=== PATIENT | female | born 1945 | race Caucasian/White ===

== ENCOUNTER 2020-01-02 16:55 | Emergency (ER) | payer OTHER ==
--- OUTSIDE RECORDS SUMMARY | 2020-01-02 16:58 | XMS REPORT | Summary of Care ---
:1945 Author Organization [facility] - Health Address [address] [place] [address] Care Team Providers Name Role Phone Sergio Berrios MD Primary Care Provider Reason for Visit Reason Comments Refill Request Encounter Details Date Type Department Care Team Description 06/25/[address] [facility] Family Medicine Sergio Berrios MD Refill Request - [address] [place] [address] [place] [address] Allergies Active Allergy Reactions Severity Noted Date Comments Levofloxacin Unknown - See comments 01/11/2016 Penicillin Unknown - See comments 01/11/2016 Sulfa (Sulfonamide Antibiotics) Unknown - See comments 01/11/2016 documented as of this encounter (statuses as of 06/25/2019) Medications Medication Sig Dispensed Refills Start Date End Date Status RESTASIS 0.05 % 3 01/04/2016 Active ophthalmic drops meloxicam (MOBIC) Take 1 Tab by 180 Tab 3 01/19/2016 Active 7.5 mg tablet mouth 2 (two) times daily. fenofibrate (TRICOR) Take 1 Tab by 90 Tab 3 01/19/2016 Active 145 mg tablet mouth daily. estradiol (ESTRACE) Take 1 Tab by 90 Tab 3 01/19/2016 Active 0.5 mg tablet mouth daily. aspirin 325 mg Take 325 mg by 0 Active tablet mouth daily. ASCORBATE CALCIUM Take by 0 Active (VITAMIN C ORAL) mouth. VITAMIN B COMPLEX Take by 0 Active ORAL mouth. CALCIUM Take by 0 Active CARBONATE/VITAMIN D2 mouth. (CALCIUM + VITAMIN D ORAL) MULTIVITAMIN ORAL Take by 0 Active mouth. azaTHIOprine 50 mg Take 50 mg by 0 Active tablet mouth daily. losartan 50 mg TAKE 1 TABLET 2 09/16/2017 Active tablet (50 MG) BY ORAL ROUTE ONCE DAILY AZELASTINE 137 mcg USE 1 SPRAYS 1 Bottle 0 04/09/2018 Active (0.1 %) nasal IN EACH sprayIndications: NOSTRIL TWICE Acute allergic A DAY rhinitis, DIRECTED unspecified seasonality, unspecified trigger biotin 5,000 mcg Take by 0 Active TbDL mouth. Cholecalciferol, Take by 0 Active Vitamin D3, (VITAMIN mouth. D3) 1,000 unit capsule clarithromycin Take 1 tablet 14 tablet 0 02/12/2019 Active (BIAXIN) 500 mg by mouth every tabletIndications: 12 (twelve) Acute non-recurrent hours. maxillary sinusitis benzonatate 100 mg Take 1 capsule 30 capsule 0 02/12/2019 Active capsuleIndications: by mouth 4 Acute non-recurrent (four) times maxillary sinusitis daily as needed for Cough. acetaminophen-codein Take 1 tablet 20 tablet 0 06/11/2019 Active e 300-30 mg by mouth every tabletIndications: 4 (four) hours Fall, initial as needed for encounter, Strain of Pain (scale left shoulder, 7-10). initial encounter, Upper arm joint pain, left escitalopram oxalate Take 1 tablet 30 tablet 0 06/15/2019 Active 10 mg by mouth tabletIndications: daily. Depression, unspecified depression type omeprazole 40 mg Take 1 capsule 90 capsule 1 06/25/2019 Active capsuleIndications: by mouth Chronic GERD daily. omeprazole 40 mg Take 1 capsule 90 capsule 1 10/08/2018 Discontinued capsuleIndications: by mouth 9 Chronic GERD daily. documented as of this encounter (statuses as of 06/25/2019) Active Problems Problem Noted Date Leukopenia, unspecified type 10/14/2017 Lupus 01/19/2016 Arthritis 01/19/2016 Essential hypertension 01/19/2016 Hyperlipidemia with target low density lipoprotein (LDL) cholesterol less 08/2016 than 100 mg/dL documented as of this encounter (statuses as of 06/25/2019) Immunizations Name Administration Dates Next Due Influenza Virus Vaccine 08/27/2018 Pneumococcal 13 Conjugate, PCV13 (Prevnar 13) 09/23/2013 Pneumococcal Polysaccharide, PPSV23 (PNEUMOVAX) 09/28/2015 Tdap 09/28/2014 documented as of this encounter Social History Tobacco Use Types Packs/Day Years Used Date Former Smoker Quit: 11/20/1999 Smokeless Tobacco: Never Used Alcohol Use Drinks/Week oz/Week Comments No Sex Assigned at Date Recorded Not on file Job Start Date Occupation Industry Not on file Not on file Not on file Travel History Travel Start Travel End No recent travel history available. documented as of this encounter Last Filed Vital Signs Not on filedocumented in this encounter Plan of Treatment Health Maintenance Due Date Last Done Comments Zoster Recombinant Vaccine (SHINGRIX) 1996 (1 of 2) Medicare Wellness Visit 2011 Osteoporosis Screening 2011 MAMMOGRAM 09/18/2018 09/18/2017 (Previously completed) INFLUENZA VACCINE (#1) 2019 08/27/2018 DTaP,Tdap,and Td Vaccines (2 - Td) 09/28/2024 09/28/2014 COLONOSCOPY 08/22/2026 08/22/2016 (Previously completed) PNEUMOCOCCAL VACCINES 65+ Completed 09/28/2015, 09/23/2013 HEPATITIS C (HCV) SCREEN Completed 2018 (Previously completed) documented as of this encounter Results Not on filedocumented in this encounter Visit Diagnoses Diagnosis Chronic GERD documented in this encounter Insurance Payer Benefit Plan Subscriber ID Effective Phone Address Type / Group Dates AETNA - AETNA [id number] 2015-[place] [address] Medicare Adv MANAGED MEDICARE ADV nt [id number] [place] [address] documented as of this encounter
--- OUTSIDE RECORDS SUMMARY | 2020-01-02 16:58 | XMS REPORT | Summary of Care ---
:1945 Author Organization [facility] Address [address] [place] [address] Care Team Providers Name Role Phone Sergio Berrios MD Primary Care Provider Reason for Referral Radiology Services (STAT) Status Reason Specialty Diagnoses / Referred By Referred To Procedures Contact Contact New Request Diagnostic Diagnoses Fall, initial encounter [place], Radiology Procedures XR SHOULDER 2+ VW LEFT Folusho F, USER ACCEPTANCE TESTER [address] [facility] [address] [place] [phone] Radiology Services (STAT) Status Reason Specialty Diagnoses / Referred By Referred To Procedures Contact Contact New Request Diagnostic Diagnoses Fall, initial encounter [place], Radiology Procedures XR HUMERUS 2 VW LEFT [place] F, USER ACCEPTANCE TESTER [address] [facility] [address] [place] [phone] Radiology Services (STAT) Status Reason Specialty Diagnoses / Referred By Referred To Procedures Contact Contact New Request Diagnostic Diagnoses Fall, initial encounter [place], Radiology Procedures XR SHOULDER 2+ VW LEFT Folusho F, USER ACCEPTANCE TESTER [address] [place] [phone] Radiology Services (STAT) Status Reason Specialty Diagnoses / Referred By Referred To Procedures Contact Contact New Request Diagnostic Diagnoses Fall, initial encounter [place], Radiology Procedures XR HUMERUS 2 VW LEFT Folusho F, USER ACCEPTANCE TESTER [address] [place] [address] Reason for Visit Reason Comments Arm Pain Left Auth/Cert Status Reason Specialty Diagnoses / Referred By Referred To Procedures Contact Contact Emergency Medicine Diagnoses ARM PAIN [facility] Emergency Dept [address] [place] [address] [place] [address] Encounter Details Date Type Department Care Team Description 06/11/2019 Emergency [facility]-Emergency [place] ac Fall, initial encounter (Primary Dx); Department F, USER ACCEPTANCE TESTER Strain of left shoulder, initial encounter; [address] [place] [address] [address] Upper arm joint pain, [place] [address] [address] [place] [address] Allergies Active Allergy Reactions Severity Noted Date Comments Levofloxacin Unknown - See comments 01/11/2016 Penicillin Unknown - See comments 01/11/2016 Sulfa (Sulfonamide Antibiotics) Unknown - See comments 01/11/2016 documented as of this encounter (statuses as of 06/11/2019) Medications Medication Sig Dispensed Refills Start Date End Date Status RESTASIS 0.05 % 3 01/04/2016 Active ophthalmic drops meloxicam (MOBIC) 7.5 Take 1 Tab by 180 Tab 3 01/19/2016 Active mg tablet mouth 2 (two) times daily. fenofibrate (TRICOR) Take 1 Tab by 90 Tab 3 01/19/2016 Active 145 mg tablet mouth daily. estradiol (ESTRACE) Take 1 Tab by 90 Tab 3 01/19/2016 Active 0.5 mg tablet mouth daily. aspirin 325 mg tablet Take 325 mg by 0 Active mouth daily. ASCORBATE CALCIUM Take by mouth. 0 Active (VITAMIN C ORAL) VITAMIN B COMPLEX ORAL Take by mouth. 0 Active CALCIUM Take by mouth. 0 Active CARBONATE/VITAMIN D2 (CALCIUM + VITAMIN D ORAL) MULTIVITAMIN ORAL Take by mouth. 0 Active azaTHIOprine 50 mg Take 50 mg by 0 Active tablet mouth daily. losartan 50 mg tablet TAKE 1 TABLET 2 09/16/2017 Active (50 MG) BY ORAL ROUTE ONCE DAILY AZELASTINE 137 mcg USE 1 SPRAYS IN 1 Bottle 0 04/09/2018 Active (0.1 %) nasal EACH NOSTRIL sprayIndications: TWICE A DAY Acute allergic DIRECTED rhinitis, unspecified seasonality, unspecified trigger biotin 5,000 mcg TbDL Take by mouth. 0 Active Cholecalciferol, Take by mouth. 0 Active Vitamin D3, (VITAMIN D3) 1,000 unit capsule omeprazole 40 mg Take 1 capsule 90 capsule 1 10/08/2018 Active capsuleIndications: by mouth daily. Chronic GERD clarithromycin Take 1 tablet 14 tablet 0 02/12/2019 Active (BIAXIN) 500 mg by mouth every tabletIndications: 12 (twelve) Acute non-recurrent hours. maxillary sinusitis benzonatate 100 mg Take 1 capsule 30 capsule 0 02/12/2019 Active capsuleIndications: by mouth 4 Acute non-recurrent (four) times maxillary sinusitis daily as needed for Cough. ESCITALOPRAM OXALATE TAKE 1 TABLET 30 tablet 0 05/08/2019 Active 10 mg BY MOUTH EVERY tabletIndications: DAY Depression, unspecified depression type naproxen 500 mg Take 1 tablet 14 tablet 0 06/11/2019 06/18/2019 Active tabletIndications: by mouth 2 Fall, initial (two) times encounter, Strain of daily with left shoulder, initial meals for 7 encounter, Upper arm days. joint pain, left acetaminophen-codeine Take 1 tablet 20 tablet 0 06/11/2019 Active 300-30 mg by mouth every tabletIndications: 4 (four) hours Fall, initial as needed for encounter, Strain of Pain (scale left shoulder, initial 7-10). encounter, Upper arm joint pain, left documented as of this encounter (statuses as of 06/11/2019) Active Problems Problem Noted Date Leukopenia, unspecified type 10/14/2017 Lupus 01/19/2016 Arthritis 01/19/2016 Essential hypertension 01/19/2016 Hyperlipidemia with target low density lipoprotein (LDL) cholesterol less 08/2016 than 100 mg/dL documented as of this encounter (statuses as of 06/11/2019) Immunizations Name Administration Dates Next Due Influenza [...] of this encounter Last Filed Vital Signs Vital Sign Reading Time Taken Comments Blood Pressure 152/80 06/11/2019 6:47 PM CDT Pulse 76 06/11/2019 6:47 PM CDT Temperature 36.9 C (98.5 F) 06/11/2019 6:47 PM CDT Respiratory Rate 18 06/11/2019 6:47 PM CDT Oxygen Saturation 96% 06/11/2019 6:47 PM CDT Inhaled Oxygen Concentration - - Weight 69.4 kg (153 lb) 06/11/2019 6:47 PM CDT Height 152.4 cm (5') 06/11/2019 6:47 PM CDT Body Mass Index 29.88 06/11/2019 6:47 PM CDT documented in this encounter Discharge Instructions AttachmentsThe following attachments cannot be sent through Care Everywhere.LUIS (Bulgarian)documented in this encounter Plan of Treatment Health Maintenance Due Date Last Done Comments Zoster Recombinant Vaccine (SHINGRIX) 1996 (1 of 2) Medicare Wellness Visit 2011 MAMMOGRAM 09/18/2018 09/18/2017 (Previously completed) INFLUENZA VACCINE 07/12/2019 08/27/2018 DTaP,Tdap,and Td Vaccines (2 - Td) 09/28/2024 09/28/2014 COLONOSCOPY 08/22/2026 08/22/2016 (Previously completed) PNEUMOCOCCAL VACCINES 65+ Completed 09/28/2015, 09/23/2013 HEPATITIS C (HCV) SCREEN Completed 2018 (Previously completed) documented as of this encounter Procedures Procedure Name Priority Date/Time Associated Diagnosis Comments XR HUMERUS 2 VW STAT 06/11/2019 7:22 PM Fall, initial Results for this LEFT CDT encounter procedure are in the results section. XR SHOULDER 2+ VW STAT 06/11/2019 7:21 PM Fall, initial Results for this LEFT CDT encounter procedure are in the results section. NOTICE OF PRIVACY Routine 06/11/2019 6:39 PM PRACTICES CDT CONSENT/REFUSAL FOR Routine 06/11/2019 6:39 PM DIAGNOSIS AND CDT TREATMENT documented in this encounter Results XR HUMERUS 2 VW LEFT (06/11/2019 7:22 PM CDT) Specimen Impressions Performed At PACS/VR/DOSE No acute osseous abnormality. Jorge Mitchell MD., have reviewed this study and agree with the above report. Narrative Performed At EXAM: PACS/VR/DOSE XR HUMERUS 2 VW LEFT, EXAM: XR SHOULDER 2+ VW LEFT HISTORY: fall COMPARISON: None available. FINDINGS: Radiographs of the left shoulder and humerus demonstrate no acute fracture or dislocation. The aorta is tortuous and contains atherosclerotic plaque. Chronic cystic erosive changes are seen over the greater tuberosity/lateral humeral head. Remote fracture deformities are seen through the left lateral ribs. Curvilinear crystalline deposition is seen within the rotator cuff. Procedure Note [facility], Radiant Results Inft User - 06/11/2019 7:42 PM CDT EXAM: XR HUMERUS 2 VW LEFT, EXAM: XR SHOULDER 2+ VW LEFT HISTORY: fall COMPARISON: None available. FINDINGS: Radiographs of the left shoulder and humerus demonstrate no acute fracture or dislocation. The aorta is tortuous and contains atherosclerotic plaque. Chronic cystic erosive changes are seen over the greater tuberosity/lateral humeral head. Remote fracture deformities are seen through the left lateral ribs. Curvilinear crystalline deposition is seen within the rotator cuff. IMPRESSION No acute osseous abnormality. Jorge Mitchell MD., have reviewed this study and agree with the above report. Performing Organization Address City/State/Zipcode Phone Number PACS/VR/DOSE XR SHOULDER 2+ VW LEFT (06/11/2019 7:21 PM CDT) Specimen Impressions Performed At PACS/VR/DOSE No acute osseous abnormality. Jorge Mitchell MD., have reviewed this study and agree with the above report. Narrative Performed At EXAM: PACS/VR/DOSE XR HUMERUS 2 VW LEFT, EXAM: XR SHOULDER 2+ VW LEFT HISTORY: fall COMPARISON: None available. FINDINGS: Radiographs of the left shoulder and humerus demonstrate no acute fracture or dislocation. The aorta is tortuous and contains atherosclerotic plaque. Chronic cystic erosive changes are seen over the greater tuberosity/lateral humeral head. Remote fracture deformities are seen through the left lateral ribs. Curvilinear crystalline deposition is seen within the rotator cuff. Procedure Note [facility], Radiant Results Inft User - 06/11/2019 7:42 PM CDT EXAM: XR HUMERUS 2 VW LEFT, EXAM: XR SHOULDER 2+ VW LEFT HISTORY: fall COMPARISON: None available. FINDINGS: Radiographs of the left shoulder and humerus demonstrate no acute fracture or dislocation. The aorta is tortuous and contains atherosclerotic plaque. Chronic cystic erosive changes are seen over the greater tuberosity/lateral humeral head. Remote fracture deformities are seen through the left lateral ribs. Curvilinear crystalline deposition is seen within the rotator cuff. IMPRESSION No acute osseous abnormality. IJorge MD., have reviewed this study and agree with the above report. Performing Organization Address City/State/Zipcode Phone Number PACS/VR/DOSE documented in this encounter Visit Diagnoses Diagnosis Fall, initial encounter - Primary Strain of left shoulder, initial encounter Upper arm joint pain, left documented in this encounter Administered Medications Medication Order MAR Action Action Date Dose Rate Site ibuprofen (IBU) tablet 800 mg 800 mg, Oral, ONCE, 1 dose, Lisa 06/11/19 at 2115, WILLIAM Medication Order MAR Action Action Date Dose Rate Site HYDROcodone-acetaminophen Given 06/11/2019 7:36 PM CDT 1 tablet (NORCO 5) 5-325 mg tablet 1 tablet 1 tablet, Oral, ONCE, 1 dose, Lisa 06/11/19 at 2015, WILLIAM documented in this encounter Insurance Payer Benefit Plan Subscriber ID Effective Phone Address Type / Group Dates AETNA - AETNA [id number] 2015-[address] [address] Medicare Adv MANAGED MEDICARE ADV nt [id number] [place] [address] documented as of this encounter
--- OUTSIDE RECORDS SUMMARY | 2020-01-02 16:58 | XMS REPORT ---
:1945 Author Organization [facility] Address [address] [place] [address] Care Team Providers Name Role Phone Unavailable Unavailable Unavailable Payers Payer Name Policy Type Policy Number Effective Date Expiration Date Problems This patient has no known problems. Allergies, Adverse Reactions, Alerts Allergy Name Allergy Status Severity Reaction(s) Onset Inactive Treating Comments Type Date Date Clinician Penicillins DA Active 2019-12 00:00:0 0 Sulfa DA Active 2019-12 (Sulfonamide -21 Antibiotics) 00:00:0 0 Medications This patient has no known medications. Results Test Description Test Time Test Comments Text Results Atomic Results Result Comments BASIC METABOLIC PANEL 2020-01-02 05:50:00 Test Item Value Reference Range Comments SODIUM (test code=NA) 133 MMOL/L 137-145 POTASSIUM (test code=K) 4.4 MMOL/L 3.5-5.1 CHLORIDE (test code=CL) 95 MMOL/L 98-107 CARBON DIOXIDE (test code=CO2) 29 MMOL/L 22-30 ANION GAP (test code=GAP) 13 MMOL/L 14-24 GLUCOSE (test code=GLU) 97 MG/DL 74-106 BLOOD UREA NITROGEN (test 30 MG/DL 7-17 code=BUN) GLOMERULAR FILTRATION RATE (test 49 Reporting units: ml/min/1.73 m2 code=GFR) (Modified MDRD Formula)Reference Range: > or=60 ml/min/1.73 m2 CREATININE (test code=CREAT) 1.10 MG/DL 0.52-1.04 CALCIUM (test code=CA) 9.3 MG/DL 8.4-10.2 LIPID PROFILE (CORONARY RISK)2020-01-02 05:50:00 Test Item Value Reference Range Comments TRIGLYCERIDES (test code=TRIG) 102 MG/DL TRIGLYCERIDES REFERENCE RANGE:Normal: <150 mg/dLBorderline High: 150-199 mg/dLHigh: 200-499 mg/dLVery High: >=500 mg/dL CHOLESTEROL (test code=CHOL) 169 MG/DL <200 HDL CHOLESTEROL (test 38 MG/DL 40-59 code=HDL) LIPOPROTEIN LDL (test 104 MG/DL 0-99 code=LDL) OPTIMAL.........<100 mg/dLNEAR OPTIMAL/ABOVE OPTIMAL.........100-129 mg/dL BORDERLINE HIGH.........130-159 mg/dL HIGH.........160-189 mg/dL VERY HIGH.........>/=190 mg/dL [id number] 05:50:00 Test Item Value Reference Range Comments MAGNESIUM (test code=MAG) 1.5 MG/DL 1.6-2.3 PROTHROMBIN [id number] 05:43:00 Test Item Value Reference Range Comments PROTHROMBIN TIME PATIENT (test 10.5 SECONDS 9.4-12.5 code=PTP) INTERNATIONAL NORMAL RATIO 1.0 The INR is to be used only (test code=INR) for monitoring oral anticoagulanttherapy. INDICATION INR VALUE 1. Prophylaxis, deep venous thrombosis, including high risk surgery. 2.0 - 3.0 2. Prophylaxis, deep venous thrombosis, hip surgery, treatment for deep venous thrombosis or pulmonary prevention of systemic embolism in patients with valvular heart disease, atrial fibrillation, tissue heart valve, or acute myocardial infarction. 2.0 - 3.0 3. Mechanical prosthesis heart valves, recurrent systemic embolism. 3.0 - 4.5 Comments to Milk [employer]ler: WILL BRING TO LABPTT [id number] 05:43:00 Test Item Value Reference Range Comments PTT ACTIVATED (test code=APTT) 26.0 SECONDS 25.1-36.5 Comments to [employer]ler: WILL BRING TO LABCBC W/AUTO [id number] 05:41:00 Test Item Value Reference Range Comments WHITE BLOOD CELL (test code=WBC) 3.2 K/MM3 3.8-9.8 RED BLOOD CELL (test code=RBC) 3.63 M/MM3 3.58-4.97 HEMOGLOBIN (test code=HGB) 10.9 G/DL 11.2-14.9 HEMATOCRIT (test code=HCT) 33.3 % 33.2-43.5 MEAN CELL VOLUME (test code=MCV) 92 fL 80.7-99.1 MEAN CELL HGB (test code=MCH) 30.0 pg 27.0-34.1 MEAN CELL HGB CONCETRATION (test code=MCHC) 32.7 % 32.2-35.7 RED CELL DISTRIBUTION WIDTH (test code=RDW) 14.8 % 12.1-15.2 PLATELET COUNT (test code=PLT) 194 K/MM3 129-368 MEAN PLATELET VOLUME (test code=MPV) 9.4 fl 7.4-10.4 NEUTROPHIL % (test code=NT%) 66.2 % 43-75 IMMATURE GRANULOCYTE % (test code=IG%) 2.5 % 0.0-2.0 LYMPHOCYTE % (test code=LY%) 24.2 % 14-44 MONOCYTE % (test code=MO%) 6.2 % 4-13 EOSINOPHIL % (test code=EO%) 0.6 % 0-6 BASOPHIL % (test code=BA%) 0.3 % 0-2 NUCLEATED RBC % (test code=NRBC%) 0.0 % 0-1.0 NEUTROPHIL # (test code=NT#) 2.13 K/mm3 2.0-7.6 IMMATURE GRANULOCYTE # (test code=IG#) 0.08 x10 3/uL 0-0.03 LYMPHOCYTE # (test code=LY#) 0.78 K/mm3 1.0-3.8 MONOCYTE # (test code=MO#) 0.20 K/mm3 0.1-0.8 EOSINOPHIL # (test code=EO#) 0.02 K/mm3 0.0-0.2 BASOPHIL # (test code=BA#) 0.01 K/mm3 0.0-0.2 NUCLEATED RBC # (test code=NRBC#) 0.00 K/mm3 0.0-0.1 BASIC METABOLIC [id number] 05:39:00 Test Item Value Reference Range Comments SODIUM (test code=NA) 133 MMOL/L 137-145 POTASSIUM (test code=K) 4.4 MMOL/L 3.5-5.1 CHLORIDE (test code=CL) 95 MMOL/L 98-107 CARBON DIOXIDE (test code=CO2) 29 MMOL/L 22-30 ANION GAP (test code=GAP) 13 MMOL/L 14-24 GLUCOSE (test code=GLU) 97 MG/DL 74-106 BLOOD UREA NITROGEN (test 30 MG/DL 7-17 code=BUN) GLOMERULAR FILTRATION RATE 49 Reporting units: ml/min/1.73 (test code=GFR) m2 (Modified MDRD Formula)Reference Range: > or=60 ml/min/1.73 m2 CREATININE (test code=CREAT) 1.10 MG/DL 0.52-1.04 CALCIUM (test code=CA) 9.3 MG/DL 8.4-10.2 LIPID PROFILE (CORONARY RISK)2020-01-02 05:39:00 Test Item Value Reference Range Comments TRIGLYCERIDES (test code=TRIG) 102 MG/DL TRIGLYCERIDES REFERENCE RANGE:Normal: <150 mg/dLBorderline High: 150-199 mg/dLHigh: 200-499 mg/dLVery High: >=500 mg/dL CHOLESTEROL (test code=CHOL) 169 MG/DL <200 HDL CHOLESTEROL (test 38 MG/DL 40-59 code=HDL) LIPOPROTEIN LDL (test MG/DL 0-99 code=LDL) [id number] 05:39:00 Test Item Value Reference Range Comments MAGNESIUM (test code=MAG) 1.5 MG/DL 1.6-2.3 BASIC METABOLIC [id number] 05:38:00 Test Item Value Reference Range Comments SODIUM (test code=NA) 133 MMOL/L 137-145 POTASSIUM (test code=K) 4.4 MMOL/L 3.5-5.1 CHLORIDE (test code=CL) 95 MMOL/L 98-107 CARBON DIOXIDE (test code=CO2) 29 MMOL/L 22-30 ANION GAP (test code=GAP) 13 MMOL/L 14-24 GLUCOSE (test code=GLU) MG/DL 74-106 BLOOD UREA NITROGEN (test 30 MG/DL 7-17 code=BUN) GLOMERULAR FILTRATION RATE 49 Reporting units: ml/min/1.73 (test code=GFR) m2 (Modified MDRD Formula)Reference Range: > or=60 ml/min/1.73 m2 CREATININE (test code=CREAT) 1.10 MG/DL 0.52-1.04 CALCIUM (test code=CA) MG/DL 8.7-9.7 LIPID PROFILE (CORONARY RISK)2020-01-02 05:38:00 Test Item Value Reference Range Comments TRIGLYCERIDES (test code=TRIG) MG/DL CHOLESTEROL (test code=CHOL) 169 MG/DL <200 HDL CHOLESTEROL (test code=HDL) MG/DL 40-59 LIPOPROTEIN LDL (test code=LDL) MG/DL 0-99 [id number] 05:38:00 Test Item Value Reference Range Comments MAGNESIUM (test code=MAG) MG/DL 1.6-2.3 BASIC METABOLIC [id number] 05:38:00 Test Item Value Reference Range Comments SODIUM (test code=NA) 133 MMOL/L 137-145 POTASSIUM (test code=K) 4.4 MMOL/L 3.5-5.1 CHLORIDE (test code=CL) 95 MMOL/L 98-107 CARBON DIOXIDE (test code=CO2) 29 MMOL/L 22-30 ANION GAP (test code=GAP) 13 MMOL/L 14-24 GLUCOSE (test code=GLU) 97 MG/DL 74-106 BLOOD UREA NITROGEN (test 30 MG/DL 7-17 code=BUN) GLOMERULAR FILTRATION RATE 49 Reporting units: ml/min/1.73 (test code=GFR) m2 (Modified MDRD Formula)Reference Range: > or=60 ml/min/1.73 m2 CREATININE (test code=CREAT) 1.10 MG/DL 0.52-1.04 CALCIUM (test code=CA) 9.3 MG/DL 8.4-10.2 LIPID PROFILE (CORONARY RISK)2020-01-02 05:38:00 Test Item Value Reference Range Comments TRIGLYCERIDES (test code=TRIG) 102 MG/DL TRIGLYCERIDES REFERENCE RANGE:Normal: <150 mg/dLBorderline High: 150-199 mg/dLHigh: 200-499 mg/dLVery High: >=500 mg/dL CHOLESTEROL (test code=CHOL) 169 MG/DL <200 HDL CHOLESTEROL (test MG/DL 40-59 code=HDL) LIPOPROTEIN LDL (test MG/DL 0-99 code=LDL) [id number] 05:38:00 Test Item Value Reference Range Comments MAGNESIUM (test code=MAG) 1.5 MG/DL 1.6-2.3 BASIC METABOLIC [id number] 05:37:00 Test Item Value Reference Range Comments SODIUM (test code=NA) 133 MMOL/L 137-145 POTASSIUM (test code=K) 4.4 MMOL/L 3.5-5.1 CHLORIDE (test code=CL) 95 MMOL/L 98-107 CARBON DIOXIDE (test code=CO2) MMOL/L 22-30 GLUCOSE (test code=GLU) MG/DL 74-106 BLOOD UREA NITROGEN (test MG/DL 7-17 code=BUN) GLOMERULAR FILTRATION RATE 49 Reporting units: ml/min/1.73 (test code=GFR) m2 (Modified MDRD Formula)Reference Range: > or=60 ml/min/1.73 m2 CREATININE (test code=CREAT) 1.10 MG/DL 0.52-1.04 CALCIUM (test code=CA) MG/DL 8.7-9.7 LIPID PROFILE (CORONARY RISK)2020-01-02 05:37:00 Test Item Value Reference Range Comments TRIGLYCERIDES (test code=TRIG) MG/DL CHOLESTEROL (test code=CHOL) 169 MG/DL <200 HDL CHOLESTEROL (test code=HDL) MG/DL 40-59 LIPOPROTEIN LDL (test code=LDL) MG/DL 0-99 [id number] 05:37:00 Test Item Value Reference Range Comments MAGNESIUM (test code=MAG) MG/DL 1.6-2.3 BASIC METABOLIC [id number] 05:35:00 Test Item Value Reference Range Comments SODIUM (test code=NA) 133 MMOL/L 137-145 POTASSIUM (test code=K) 4.4 MMOL/L 3.5-5.1 CHLORIDE (test code=CL) 95 MMOL/L 98-107 CARBON DIOXIDE (test code=CO2) MMOL/L 22-30 GLUCOSE (test code=GLU) MG/DL 74-106 BLOOD UREA NITROGEN (test code=BUN) MG/DL 7-17 GLOMERULAR FILTRATION RATE (test code=GFR) CREATININE (test code=CREAT) MG/DL 0.52-1.04 CALCIUM (test code=CA) MG/DL 8.7-9.7 LIPID PROFILE (CORONARY RISK)2020-01-02 05:35:00 Test Item Value Reference Range Comments TRIGLYCERIDES (test code=TRIG) MG/DL CHOLESTEROL (test code=CHOL) MG/DL <200 HDL CHOLESTEROL (test code=HDL) MG/DL 40-59 LIPOPROTEIN LDL (test code=LDL) MG/DL 0-99 [id number] 05:35:00 Test Item Value Reference Range Comments MAGNESIUM (test code=MAG) MG/DL 1.6-2.3
--- OUTSIDE RECORDS SUMMARY | 2020-01-02 16:58 | XMS REPORT | Summary of Care ---
:[address] [facility] - [facility] Address [address] [place] [address] Care Team Providers Name Role Phone Sergio Berrios MD Primary Care Provider Reason for Visit Reason Comments Refill Request Encounter Details Date Type Department Care Team Description 06/15/[address] [facility] Sergio Berrios MD Refill Request - [address] [place] [address] [place] [address] Allergies Active Allergy Reactions Severity Noted Date Comments Levofloxacin Unknown - See comments 01/11/2016 Penicillin Unknown - See comments 01/11/2016 Sulfa (Sulfonamide Antibiotics) Unknown - See comments 01/11/2016 documented as of this encounter (statuses as of 06/15/2019) Medications Medication Sig Dispensed Refills Start Date [...] D3, (VITAMIN mouth. D3) 1,000 unit capsule omeprazole 40 mg Take 1 capsule 90 capsule 1 10/08/2018 Active capsuleIndications: by mouth Chronic GERD daily. clarithromycin Take 1 tablet 14 tablet 0 02/12/2019 Active (BIAXIN) 500 mg by mouth every tabletIndications: 12 (twelve) Acute non-recurrent hours. maxillary sinusitis benzonatate 100 mg Take 1 capsule 30 capsule 0 02/12/2019 Active capsuleIndications: by mouth 4 Acute non-recurrent (four) times maxillary sinusitis daily as needed for Cough. naproxen 500 mg Take 1 tablet 14 tablet 0 06/11/2019 Active tabletIndications: by mouth 2 9 Fall, initial (two) times encounter, Strain of daily with left shoulder, meals for 7 initial encounter, days. Upper arm joint pain, left acetaminophen-codein Take 1 tablet 20 tablet 0 06/11/2019 Active e 300-30 mg by mouth every tabletIndications: 4 (four) hours Fall, initial as needed for encounter, Strain of Pain (scale left shoulder, 7-10). initial encounter, Upper arm joint pain, left escitalopram oxalate Take 1 tablet 30 tablet 0 06/15/2019 Active 10 mg by mouth tabletIndications: daily. Depression, unspecified depression type ESCITALOPRAM OXALATE TAKE 1 TABLET 30 tablet 0 05/08/2019 Discontinued 10 mg BY MOUTH EVERY 9 tabletIndications: DAY Depression, unspecified depression type documented as of this encounter (statuses as of 06/15/2019) Active Problems Problem Noted Date Leukopenia, unspecified type 10/14/2017 Lupus 01/19/2016 Arthritis 01/19/2016 Essential hypertension 01/19/2016 Hyperlipidemia with target low density lipoprotein (LDL) cholesterol less 08/2016 than 100 mg/dL documented as of this encounter (statuses as of 06/15/2019) Immunizations Name Administration Dates Next Due Influenza [...] filedocumented in this encounter Visit Diagnoses Diagnosis Depression, unspecified depression type documented in this encounter Insurance Payer Benefit Plan Subscriber ID Effective Phone Address Type / Group Dates AETNA - AETNA [id number] 2015-[place] [address] Medicare Adv MANAGED MEDICARE ADV nt [id number] [place] [address] documented as of this encounter
--- OUTSIDE RECORDS SUMMARY | 2020-01-02 16:59 | XMS REPORT | Summary of Care ---
:1945 Author Organization [facility] - Health Address [address] [place] [address] Care Team Providers Name Role Phone Sergio Berrios MD Primary Care Provider Reason for Visit Reason Comments Refill Request Encounter Details Date Type Department Care Team Description 07/09/2019 Refill [facility] Sergio Berrios MD Refill Request - [address] [place] [address] [place] [address] Allergies Active Allergy Reactions Severity Noted Date Comments Levofloxacin Unknown - See comments 01/11/2016 Penicillin Unknown - See comments 01/11/2016 Sulfa (Sulfonamide Antibiotics) Unknown - See comments 01/11/2016 documented as of this encounter (statuses as of 07/09/2019) Medications Medication Sig Dispensed Refills Start Date [...] initial encounter, Upper arm joint pain, left omeprazole 40 mg Take 1 capsule 90 capsule 1 06/25/2019 Active capsuleIndications: by mouth Chronic GERD daily. escitalopram oxalate Take 1 tablet 30 tablet 0 07/09/2019 Active 10 mg by mouth tabletIndications: daily. Depression, unspecified depression type escitalopram oxalate Take 1 tablet 30 tablet 0 06/15/2019 Discontinued 10 mg by mouth 9 tabletIndications: daily. Depression, unspecified depression type documented as of this encounter (statuses as of 07/09/2019) Active Problems Problem Noted Date Leukopenia, unspecified type 10/14/2017 Lupus 01/19/2016 Arthritis 01/19/2016 Essential hypertension 01/19/2016 Hyperlipidemia with target low density lipoprotein (LDL) cholesterol less 08/2016 than 100 mg/dL documented as of this encounter (statuses as of 07/09/2019) Immunizations Name Administration Dates Next Due Influenza [...] Type / Group Dates AETNA - AETNA [id number] 2015-[place]evae[place] [address] Medicare Adv MANAGED MEDICARE ADV nt [id number] [place] [address] documented as of this encounter
--- OUTSIDE RECORDS SUMMARY | 2020-01-02 16:59 | XMS REPORT | Summary of Care ---
:1945 Author Organization [facility] - Health Address [address] [place] [address] Care Team Providers Name Role Phone Sergio Berrios MD Primary Care Provider Encounter Details Date Type Department Care Team Description 12/21/2019 Orders Only [facility] Doctor Unassigned, No [address] [facility] [place] [address] [address] [place] [address] Allergies Active Allergy Reactions Severity Noted Date Comments Levofloxacin Unknown - See comments 01/11/2016 Penicillin Unknown - See comments 01/11/2016 Sulfa (Sulfonamide Antibiotics) Unknown - See comments 01/11/2016 Sulfur Dioxide Hives High 11/19/2019 documented as of this encounter (statuses as of 12/23/2019) Medications Medication Sig Dispensed Refills Start Date End Date Status RESTASIS 0.05 % 3 01/04/2016 Active ophthalmic drops fenofibrate (TRICOR) Take 1 Tab by 90 [...] MULTIVITAMIN ORAL Take by mouth. 0 Active losartan 50 mg tablet TAKE 1 TABLET (50 2 09/16/2017 Active MG) BY ORAL ROUTE ONCE DAILY Cholecalciferol, Take by mouth. 0 Active Vitamin D3, (VITAMIN D3) 1,000 unit capsule escitalopram oxalate Take 1 tablet by 90 tablet 1 11/09/2019 Active 10 mg mouth daily. tabletIndications: Depression, unspecified depression type omeprazole 40 mg Take 1 capsule by 90 capsule 1 11/09/2019 Active capsuleIndications: mouth daily. Chronic GERD benzonatate 200 mg Take 1 capsule by 25 capsule 0 11/09/2019 Active capsuleIndications: mouth 3 (three) Acute URI times daily as needed for Cough. predniSONE 10 mg Take 1 tablet by 14 tablet 0 11/19/2019 Active tabletIndications: mouth 2 (two) Lupus, Arthritis times daily. HYDROcodone-acetaminop Take 1 tablet by 30 tablet 0 11/19/2019 Active hen 7.5-325 mg per mouth every 6 tabletIndications: (six) hours as Arthritis needed for Pain. Nitrofurantoin&Nit. Take 1 capsule by 10 capsule 0 11/29/2019 Active Macrocryst (MACROBID) mouth 2 (two) 100 mg times daily. capsuleIndications: Chest pain, unspecified type, Dyspnea, unspecified type, Urinary tract infection without hematuria, site unspecified documented as of this encounter (statuses as of 12/23/2019) Active Problems Problem Noted Date Leukopenia, unspecified type 10/14/2017 Lupus 01/19/2016 Arthritis 01/19/2016 Essential hypertension 01/19/2016 Hyperlipidemia with target low density lipoprotein (LDL) cholesterol less 08/2016 than 100 mg/dL documented as of this encounter (statuses as of 12/23/2019) Immunizations Name Administration Dates Next Due Influenza High Dose 08/11/2019 Influenza Virus Vaccine 08/27/2018 Pneumococcal 13 Conjugate, [...] Medicare Wellness Visit 2011 Osteoporosis Screening 2011 Breast Cancer Screening (MAMMOGRAM) 12/12/2019 12/12/2018, 09/18/2017 (Previously completed) DTaP,Tdap,and Td Vaccines (2 - Td) 09/28/2024 09/28/2014 COLONOSCOPY 08/22/2026 08/22/2016 (Previously completed) PNEUMOCOCCAL VACCINES 65+ Completed 09/28/2015, 09/23/2013 HEPATITIS C (HCV) SCREEN Completed 2018 (Previously completed) INFLUENZA VACCINE Completed 08/11/2019, 08/27/2018 documented as of this encounter Procedures Procedure Name Priority Date/Time Associated Diagnosis Comments AUTHORIZATION TO RELEASE Routine 12/21/2019 12:01 AM PHI TO [facility] [employer] [employer] documented in this encounter Results Not on filedocumented in this encounter Insurance Payer Benefit Plan Subscriber ID Effective Phone Address Type / Group Dates AETNA - AETNA [id number] 2015-[place]evaeh [address] Medicare Adv MANAGED MEDICARE ADV nt [id number] [place] [address] documented as of this encounter
--- OUTSIDE RECORDS SUMMARY | 2020-01-02 16:59 | XMS REPORT | Summary of Care ---
:1945 Author Organization [facility] Address [address] [place] [address] Care Team Providers Name Role Phone Sergio Berrios MD Primary Care Provider Reason for Visit Reason Comments Notification Encounter Details Date Type Department Care Team Description 12/22/2019 Telephone [facility] Sergio Berrios MD Notification - [place] [address] [facility] [address] [place] [address] [place] [address] Allergies Active Allergy Reactions Severity Noted Date Comments Levofloxacin Unknown - See comments 01/11/2016 Penicillin Unknown - See comments 01/11/2016 Sulfa (Sulfonamide Antibiotics) Unknown - See comments 01/11/2016 Sulfur Dioxide Hives High 11/19/2019 documented as of this encounter (statuses as of 12/22/2019) Medications Medication Sig Dispensed Refills Start Date [...] as of this encounter (statuses as of 12/22/2019) Active Problems Problem Noted Date Leukopenia, unspecified type 10/14/2017 Lupus 01/19/2016 Arthritis 01/19/2016 Essential hypertension 01/19/2016 Hyperlipidemia with target low density lipoprotein (LDL) cholesterol less 08/2016 than 100 mg/dL documented as of this encounter (statuses as of 12/22/2019) Immunizations Name Administration Dates Next Due Influenza [...] 08/11/2019, 08/27/2018 documented as of this encounter Results Not on filedocumented in this encounter Insurance Payer Benefit Plan Subscriber ID Effective Phone Address Type / Group Dates AETNA - AETNA [id number] 2015-Nevaeh [address] Medicare Adv MANAGED MEDICARE ADV nt [id number] [place] [address] documented as of this encounter
--- OUTSIDE RECORDS SUMMARY | 2020-01-02 17:00 | XMS REPORT | Summary of Care ---
:1945 Author Organization [facility] - [facility] [place] Address [address] [place] [address] Care Team Providers Name Role Phone Sergio Ruelas MD Primary Care Provider Reason for Referral Radiology Services (STAT) Status Reason Specialty Diagnoses / Referred By Referred To Procedures Contact Contact New Request Diagnostic Diagnoses Multiple complaints Fever, unspecified fever cause Tyrell Del Angel, Radiology Procedures XR CHEST [address] [place] [address] [address] [place] [id number] Reason for Visit Reason Comments Headache Fever Shortness of Breath Auth/Cert Status Reason Specialty Diagnoses / Referred By Referred To Procedures Contact Contact Emergency Medicine Diagnoses LOW WHITE COUNT, SENT BY DR RUELAS [facility] [address] [place] [address] [place] [address] Encounter Details Date Type Department Care Team Description 12/22/2019 Emergency ADC-Emergency Tyrell Del Angel MD Multiple complaints (Primary Dx); Department [facility] Fever, unspecified fever cause; [address] [place] [address] [address] Immunosuppression; [place] [address] History of recent steroid use; [phone] Leukopenia, unspecified type Allergies Active Allergy Reactions Severity Noted Date [...] Sign Reading Time Taken Comments Blood Pressure 121/69 12/22/2019 1:00 PM CIRCULATION LIBRARIAN Pulse 69 12/22/2019 1:00 PM CIRCULATION LIBRARIAN Temperature 36.9 C (98.5 F) 12/22/2019 10:07 AM CIRCULATION LIBRARIAN Respiratory Rate 17 12/22/2019 1:00 PM CIRCULATION LIBRARIAN Oxygen Saturation 96% 12/22/2019 1:00 PM CIRCULATION LIBRARIAN Inhaled Oxygen Concentration - - Weight 68 kg (150 lb) 12/22/2019 10:07 AM CIRCULATION LIBRARIAN Height 152.4 cm (5') 12/22/2019 10:07 AM CIRCULATION LIBRARIAN Body Mass Index 29.29 12/22/2019 10:07 AM CIRCULATION LIBRARIAN documented in this encounter Discharge Instructions InstructionsTyrell Del Angel MD - 12/22/2019 RETURN FOR ANY QUESTIONS OR CONCERNS Today you were seen by Tyrell Del Angel Jr., MD You were seen today for Chief Complaint Patient presents with Headache Fever Shortness of Breath Your ER diagnosis was ICD-10-CM ICD-9-CM 1. Multiple complaints R68.89 780.99 2. Fever, unspecified fever cause R50.9 780.60 3. Immunosuppression D89.9 279.9 4. History of recent steroid use Z92.241 V87.45 5. Leukopenia, unspecified type D72.819 288.50 NO LIFE-THREATENING FINDINGS ON TODAY'S EXAM. YOUR PRESCRIPTIONS : Check out [employer] for medication discounts Medication List ASK your doctor about these medications aspirin 325 mg tablet benzonatate 200 mg capsule Commonly known as: TESSALON Take 1 capsule by mouth 3 (three) times daily as needed for Cough. CALCIUM + VITAMIN D ORAL escitalopram oxalate 10 mg tablet Commonly known as: LEXAPRO Take 1 tablet by mouth daily. estradiol 0.5 mg tablet Commonly known as: ESTRACE Take 1 Tab by mouth daily. fenofibrate 145 mg tablet Commonly known as: TRICOR Take 1 Tab by mouth daily. HYDROcodone-acetaminophen 7.5-325 mg per tablet Commonly known as: NORCO Take 1 tablet by mouth every 6 (six) hours as needed for Pain. losartan 50 mg tablet Commonly known as: COZAAR MULTIVITAMIN ORAL Nitrofurantoin&Nit. Macrocryst 100 mg capsule Commonly known as: MACROBID Take 1 capsule by mouth 2 (two) times daily. omeprazole 40 mg capsule Commonly known as: PRILOSEC Take 1 capsule by mouth daily. predniSONE 10 mg tablet Commonly known as: DELTASONE Take 1 tablet by mouth 2 (two) times daily. RESTASIS 0.05 % drops Generic drug: cycloSPORINE VITAMIN B COMPLEX ORAL VITAMIN C ORAL VITAMIN D3 25 mcg (1,000 unit) capsule Generic drug: Cholecalciferol (Vitamin D3) ER precautions and follow up : 1. Return to ER if your symptoms should worsen or fail to improve within 72 hours. 2. The care provided in the emergency room was for acute problems only. 3. You should follow up with your primary care provider within 72 hours. 4. Fill and take all your medications as prescribed. 5. Make sure you are staying adequately hydrated. Busque attencion immediatamente si usted tiene los sitomas sigue, vuelve peor o si hay sitomas nuevas o para cualquiera preoccupacion incluyendo dolor del pecho , falta aire, se siente debile, mas fievre, mas dolor, nausea, vomitando, sangrando que no es normal, confusion, baja or pierdas conciencia. MAY FOLLOW-UP WITH A PROVIDER OF YOUR CHOICE, SUCH : 1. A PHYSICIAN OF YOUR CHOICE 2. [facility], . LOCATIONS IN ED [facility] 3. [facility], [address], [place]; [phone] OR, IF YOU WISH TO FOLLOW-UP WITHIN THE [facility], MAY TRY THESE OPTIONS (CLINIC APPOINTMENTS AVAILABLE ON KWUF-IP-DEHQ BASIS): 1. SCHEDULE AN APPOINTMENT ONLINE AT WWW[facility] 2. OR CALL THE [facility] ACCESS CENTER AT OR 3. OR CALL YOUR [facility] PHYSICIAN'S OFFICE DIRECTLY IF YOU ARE ALREADY AN ESTABLISHED [facility] PATIENT. [facility] RETURN TO WORK / SCHOOL EXCUSE [employer] Lauren WAS SEEN IN THE ER AND DISCHARGED 12/22/2019 TODAY, 1:45 PM & May return to Work / School / Incarceration on X with activity as tolerated indicated below. ___The following limitations apply until pt is seen by Physician and cleared to return to normal activity. _X_ Off for two days and return to activity as tolerated at work or school ___ No Sports ___ No work ___ Do not return until fever free for 24 hours. ___ No school TYRELL DEL ANGEL Jr., MD [facility] [address] [place] [address] [place] [address] ### The patient may have been given Narcotic pain medications during their stay in the ED that may show up on a Drug Screen. The hospital discharge paper work will identify these medications. AttachmentsThe following attachments cannot be sent through Care Everywhere.Febrile Illness, Uncertain Cause (Adult) (Lebanese)Immunocompromised Patients, Discharge Instructions (Lebanese)documented in this encounter Plan of Treatment Name Type Priority Associated Diagnoses Date/Time BLOOD CULTURE SCREEN LAB STAT Multiple complaints 12/22/2019 11:30 AM CIRCULATION LIBRARIAN Fever, unspecified fever cause BLOOD CULTURE SCREEN LAB STAT Multiple complaints 12/22/2019 10:59 AM CIRCULATION LIBRARIAN Fever, unspecified fever cause Name Type Priority Associated Diagnoses Order Schedule BLOOD CULTURE SCREEN LAB Routine Multiple complaints ONCE for 1 Occurrences Fever, unspecified fever starting 12/22/2019 until cause 12/22/2019 BLOOD CULTURE SCREEN LAB Routine Multiple complaints ONCE for 1 Occurrences Fever, unspecified fever starting 12/22/2019 until cause 12/22/2019 Health Maintenance Due Date Last Done Comments [...] Procedure Name Priority Date/Time Associated Diagnosis Comments URINALYSIS STAT 12/22/2019 12:01 Multiple complaints Results for this PM CIRCULATION LIBRARIAN Fever, unspecified procedure are in fever cause the results section. ADC,CLC OR LCC ONLY - STAT 12/22/2019 11:06 Multiple complaints Results for this INFLUENZA A & B AM CIRCULATION LIBRARIAN Fever, unspecified procedure are in DIRECT ANTIGEN fever cause the results section. LACTIC ACID WHOLE STAT 12/22/2019 11:00 Multiple complaints Results for this BLOOD AM CIRCULATION LIBRARIAN Fever, unspecified procedure are in fever cause the results section. CBC WITH DIFFERENTIAL STAT 12/22/2019 10:59 Multiple complaints Results for this AM CIRCULATION LIBRARIAN Fever, unspecified procedure are in fever cause the results section. ACTIVATED PARTIAL STAT 12/22/2019 10:59 Multiple complaints Results for this THRMPLAS BHARGAV AM CIRCULATION LIBRARIAN Fever, unspecified procedure are in fever cause the results section. PROTHROMBIN TIME / STAT 12/22/2019 10:59 Multiple complaints Results for this INR AM CIRCULATION LIBRARIAN Fever, unspecified procedure are in fever cause the results section. CBC WITH DIFFERENTIAL Routine 12/22/2019 10:59 Multiple complaints Results for this AM CIRCULATION LIBRARIAN Fever, unspecified procedure are in fever cause the results section. BASIC METABOLIC PANEL STAT 12/22/2019 10:59 Multiple complaints Results for this (NA, K, CL, CO2, AM CIRCULATION LIBRARIAN Fever, unspecified procedure are in GLUCOSE, BUN, fever cause the results CREATININE, CA) section. HEPATIC FUNCTION STAT 12/22/2019 10:59 Multiple complaints Results for this PANEL (18995) AM CIRCULATION LIBRARIAN Fever, unspecified procedure are in (ALB,T.PRO,BILI fever cause the results T,BU/BC,ALT,AST,ALK section. PHOS) TROPONIN I STAT 12/22/2019 10:59 Multiple complaints Results for this AM CIRCULATION LIBRARIAN Fever, unspecified procedure are in fever cause the results section. XR CHEST 1 VW STAT 12/22/2019 10:55 Multiple complaints Results for this AM CIRCULATION LIBRARIAN Fever, unspecified procedure are in fever cause the results section. EKG-12 LEAD STAT 12/22/2019 10:31 AM CIRCULATION LIBRARIAN documented in this encounter Results Urinalysis (12/22/2019 12:01 PM CIRCULATION LIBRARIAN) APPEARANCE Clear Clear [facility] COLOR Yellow Yellow [facility] PH 5.0 4.8 - 8.0 [facility] SP GRAVITY 1.010 1.003 - 1.030 [facility] GLU U QUAL Normal Normal [facility] BLOOD Negative Negative [facility] KETONES Negative Negative [facility] PROTEIN Negative Negative [facility] UROBILIN Normal Normal [facility] BILIRUBIN Negative Negative [facility] NITRITE Negative Negative [facility] LEUK YUDI 25/uL (A) Negative [facility] RBC/HPF 1 0 - 3 HPF [facility] WBC/HPF 3 0 - 5 HPF [facility] BACTERIA Negative Negative [facility] MUCOUS Slight (A) Negative LPF [facility] SQ EPITH <1 HPF [facility] HYAL CAST 3 (H) <=2 LPF [facility] Specimen Urine - URINE, CLEAN CATCH Performing Organization Address [facility] Centercode Phone Number [facility] CLIA: [id number], [address] [place] [address] ADC,CLC OR LCC ONLY - INFLUENZA A & B DIRECT ANTIGEN (12/22/2019 11:06 AM CIRCULATION LIBRARIAN) Influenza A Negative Negative [facility] Influenza B Negative Negative [facility] Specimen Swab - NARE, LEFT SIDE Performing Organization Address [facility] Centercode Phone Number [facility] CLIA: [id number], [address] [place] [address] Lactic Acid Whole Blood (12/22/2019 11:00 AM CIRCULATION LIBRARIAN) LACTIC ACID 1.09 0.50 - 2.20 mmol/L [facility] Specimen Blood - VENOUS Performing Organization Address City/State/Zipcode Phone Number [facility] CLIA: [id number], [address] [place] [address] CBC WITH DIFFERENTIAL (12/22/2019 10:59 AM CIRCULATION LIBRARIAN) WBC 3.67 (L) 4.30 - 11.10 [facility] 10*3/L [facility] RBC 3.91 (L) 3.93 - 5.25 [facility] 10*6/L [facility] HGB 11.6 11.6 - 15.0 [facility] g/dL [facility] HCT 35.4 (L) 35.7 - 45.2 % [facility] MCV 90.5 80.6 - 95.5 fL [facility] MCH 29.7 25.9 - 32.8 pg [facility] MCHC 32.8 31.6 - 35.1 [facility] g/dL [facility] RDW-SD 47.3 39.0 - 49.9 fL [facility] RDW-CV 14.3 12.0 - 15.5 % [facility] PLT 203 166 - 358 [facility] 10*3/L [facility] MPV 9.7 9.5 - 12.9 fL [facility] NRBC/100 WBC 0.0 0.0 - 10.0 /100 [facility] WBCs [facility] NRBC x10^3 <0.01 10*3/L [facility] GRAN MAT (NEUT) % 84.8 % [facility] IMM GRAN % 1.90 % [facility] LYMPH % 10.6 % [facility] MONO % 2.7 % [facility] EOS % 0.0 % [facility] BASO % 0.0 % [facility] GRAN MAT x10^3(ANC) 3.11 1.88 - 7.09 [facility] 10*3/uL [facility] IMM GRAN x10^3 0.07 (H) 0.00 - 0.06 [facility] 10*3/uL HOSPITAL LAB[facility]ORY LYMPH x10^3 0.39 (L) 1.32 - 3.29 [facility] 10*3/uL HOSPITAL LAB[facility]ATORY MONO x10^3 0.10 (L) 0.33 - 0.92 [facility] 10*3/uL HOSPITAL LAB[facility]ORY EOS x10^3 <0.03 (L) 0.03 - 0.39 [facility] 10*3/uL H[facility]ITAL LAB[facility]ORY BASO x10^3 <0.03 0.01 - 0.07 [facility] 10*3/uL [facility] Specimen Blood - VENOUS Performing Organization Address City/[facility] Centercode Phone Number [facility] CLIA: [id number], [address] [place], [place] [address] [address] Prothrombin Time (PT) / INR (12/22/2019 10:59 AM CIRCULATION LIBRARIAN) [facility] PROTIME PATIENT 12.9 12.0 - 14.7 [facility] LABORATORY INR 1.0Comment: Normal [facility] INR <1.1; Warfarin [facility] Therapeutic range LABORATORY 2.0 to 3.0 or 2.5 to 3.5, depending upon the indications. Specimen Blood - VENOUS Performing Organization Address [facility] Phone Number [facility] CLIA: [id number], [address] [place], [place] [address] LAB[address] aPTT (12/22/2019 10:59 AM CIRCULATION LIBRARIAN) [facility] APTT Patient 29 23 - 38 Seconds [facility] Specimen Blood - VENOUS Narrative Performed At The [facility] patient population mean normal value [facility] for aPTT is 30 seconds. Performing Organization Address [facility] Phone Number [facility] CLIA: [id number], [address] [place], [place] [address] LAB[address] Troponin I (12/22/2019 10:59 AM CIRCULATION LIBRARIAN) [facility] TROPONIN I 0.033 <=0.034 ng/mL [facility] Specimen Blood - VENOUS Narrative Performed At Equal or Less than 0.034 ng/ml---Normal [facility] Note: Cardiac troponin begins to rise 3-4 hours after the onset of ischemia. Repeat in 4-6 hours if the sample was drawn within 3-4 hours of the onset of the symptom and found normal. Between 0.035 and 0.120 ng/mL--- Borderline. Questionable myocardial injury or necrosis Note: Serial measurement may be necessary to confirm or exclude the diagnosis of myocardial injury or necrosis; Clinical correlation (symptoms, EKGs, imaging studies, and others) required; Repeat in 4-6 hours if clinically indicated. Equal or Higher than 0.121 ng/mL---Abnormal. Myocardial Injury or Necrosis Likely Biotin has been reported to cause a negative bias, interpret results relative to patient's use of biotin. Performing Organization Address [facility] Centercode Phone Number [facility] CLIA: [id number], [address] [place] [address] LABORATORY Hospital [facility] Hepatic Function Panel (ALB, T.PRO, BILI T, BU/BC, ALT, AST, ALK PHOS) (2019 10:59 AM CIRCULATION LIBRARIAN) TOTAL BILI 0.7 0.1 - 1.1 mg/dL [facility] BILI UNCON 0.3 0.1 - 1.1 mg/dL [facility] BILI CONJ 0.0 0.0 - 0.3 mg/dL [facility] T PROTEIN 7.1 6.3 - 8.2 g/dL [facility] ALBUMIN 3.6 3.5 - 5.0 g/dL [facility] ALK PHOS 63 34 - 122 U/L [facility] ALTv 138 (H) 5 - 35 U/L [facility] AST(SGOT) 247 (H) 13 - 40 U/L [facility] Specimen Blood - VENOUS Performing Organization Address [facility] Centercooh Phone Number [facility] CLIA: [id number], [address] [place] [address] LABORATORY Hospital [facility] Basic Metabolic Panel (NA, K, CL, CO2, GLUCOSE, BUN, CREATININE, CA) (2019 10:59 AM CIRCULATION LIBRARIAN) NA 133 (L) 135 - 145 [facility] mmol/L [facility] K 4.1 3.5 - 5.0 [facility] mmol/L HOSPITAL LABORATORY CL 98 98 - 108 mmol/L [facility] CO2 TOTAL 26 23 - 31 mmol/L [facility] AGAP 9 2 - 16 [facility] BUN 28 (H) 7 - 23 mg/dL [facility] GLUCOSE 100 70 - 110 mg/dL [facility] CREATININE 0.97 0.50 - 1.04 [facility] mg/dL [facility] LABORATORY CALCIUM 9.6 8.6 - 10.6 [facility] mg/dL [facility] LABOR[facility]ORY eGFR Calculation 56.3 mL/min/1.73m2 [facility] (Non-[facility] LABORATORY Bangladeshi) eGFR Calculation 68.2 mL/min/1.73m2 [facility] () [facility] Specimen Blood - VENOUS Narrative Performed At Association of Glomerular Filtration Rate (GFR) [facility] LABORATORY and Staging of Kidney Disease* + + +- + | GFR (mL/min/1.73 m2) | With Kidney Damage | Without Kidney Damage + + +- + | >90 | Stage one | Normal + + +- + | 60-89 | Stage two | Decreased GFR + + +- + | 30-59 | Stage three | Stage three + + +- + | 15-29 | Stage four | Stage four + + +- + | <15 (or dialysis) | Stage five | Stage five + + +- + *Each stage assumes the associated GFR level has been in effect for at least three months. Stages 1 to 5, with or without kidney disease, indicate chronic kidney disease. Notes: Determination of stages one and two (with eGFR >59mL/min/1.73 m2) requires estimation of kidney damage for at least three months as defined by structural or functional abnormalities of the kidney, manifested by either: Pathological abnormalities or Markers of kidney damage (including abnormalities in the composition of the blood or urine or abnormalities in imaging tests). Performing Organization Address City/[facility]/Zipcode Phone Number [facility] CLIA: [id number], [address] [place] [address] [facility] [address] XR CHEST 1 VW (12/22/2019 10:55 AM CIRCULATION LIBRARIAN) Specimen Narrative Performed At EXAM: XR CHEST 1 VW PACS/VR/DOSE HISTORY: dyspnea COMPARISON: None. FINDINGS: The heart is slightly enlarged to the left, not different than noted previously. The left ventricle is enlarged. The lungs are satisfactorily expanded and clear. Procedure Note Ut, Radiant Results Inft User - 12/22/2019 10:58 AM CIRCULATION LIBRARIAN EXAM: XR CHEST 1 VW HISTORY: dyspnea COMPARISON: None. FINDINGS: The heart is slightly enlarged to the left, not different than noted previously. The left ventricle is enlarged. The lungs are satisfactorily expanded and clear. Performing Organization Address City/State/Zipcode Phone Number PACS/VR/DOSE documented in this encounter Visit Diagnoses Diagnosis Multiple complaints - Primary Other ill-defined conditions Fever, unspecified fever cause Immunosuppression Unspecified disorder of immune mechanism History of recent steroid use Leukopenia, unspecified type documented in this encounter Insurance Payer Benefit Plan Subscriber ID Effective Phone Address Type / Group Dates AETNA - AETNA [id number] 2015-[place] [address] Medicare Adv MANAGED MEDICARE ADV nt [id number] [place] [address] documented as of this encounter"
--- OUTSIDE RECORDS SUMMARY | 2020-01-02 17:00 | XMS REPORT | Summary of Care ---
:1945 Author Organization [facility] - [facility] Address [address] [place] [address] Care Team Providers Name Role Phone Sergio Berrios MD Primary Care Provider Reason for Visit Reason Comments Notification Encounter Details Date Type Department Care Team Description 12/02/2019 Telephone [facility] Family Medicine Sergio Berrios MD Notification - [place] [address] [facility] [address] [place] [address] [place] [address] Allergies Active Allergy Reactions Severity Noted Date Comments Levofloxacin Unknown - See comments 01/11/2016 Penicillin Unknown - See comments 01/11/2016 Sulfa (Sulfonamide Antibiotics) Unknown - See comments 01/11/2016 Sulfur Dioxide Hives High 11/19/2019 documented as of this encounter (statuses as of 12/03/2019) Medications Medication Sig Dispensed Refills Start Date [...] as of this encounter (statuses as of 12/03/2019) Active Problems Problem Noted Date Leukopenia, unspecified type 10/14/2017 Lupus 01/19/2016 Arthritis 01/19/2016 Essential hypertension 01/19/2016 Hyperlipidemia with target low density lipoprotein (LDL) cholesterol less 08/2016 than 100 mg/dL documented as of this encounter (statuses as of 12/03/2019) Immunizations Name Administration Dates Next Due Influenza [...] Type / Group Dates AETNA - AETNA [id number] 2015-[place]evae[place] [address] Medicare Adv MANAGED MEDICARE ADV nt [id number] [facility] [place] [address] documented as of this encounter
--- OUTSIDE RECORDS SUMMARY | 2020-01-02 17:00 | XMS REPORT | Summary of Care ---
:1945 Author Organization [facility] Address [address] [place] [id number] Care Team Providers Name Role Phone Sergio Berrios MD Primary Care Provider Reason for Referral MRI/CAT Scan (STAT) Status Reason Specialty Diagnoses / Referred By Referred To Procedures Contact Contact New Request Diagnostic Diagnoses Dyspnea, unspecified type Tyrell Del Angel, Radiology Procedures CT ABDOMEN PELVIS W CONTRAST [address] [place] [address] [place] [address] MRI/CAT Scan (STAT) Status Reason Specialty Diagnoses / Referred By Referred To Procedures Contact Contact New Request Diagnostic Diagnoses Dyspnea, unspecified type Tyrell Del Angel, Radiology Procedures CT CHEST PULMONARY ANGIOGRAM [address] [place] [address] [place] [address] Radiology Services (STAT) Status Reason Specialty Diagnoses / Referred By Referred To Procedures Contact Contact New Request Diagnostic Diagnoses Chest pain, unspecified type Tyrell Del Angel, Radiology Procedures Chest [address] [place] [address] [place] [address] Reason for Visit Reason Comments Chest Pain Shortness of Breath Auth/Cert Status Reason Specialty Diagnoses / Referred By Referred To Procedures Contact Contact [facility] [address] [place] [address] [place] [address] Encounter Details Date Type Department Care Team Description 11/29/2019 Emergency [facility] Tyrell Del Angel MD Chest pain, unspecified type (Primary Dx); Department [address] [place] [address] Dyspnea, unspecified type; [address] [place] [address] [address] Urinary tract infection without hematuria, [place] [address] [place] [address] [phone] Allergies Active Allergy Reactions Severity Noted Date Comments Levofloxacin Unknown - See comments 01/11/2016 Penicillin Unknown - See comments 01/11/2016 Sulfa (Sulfonamide Antibiotics) Unknown - See comments 01/11/2016 Sulfur Dioxide Hives High 11/19/2019 documented as of this encounter (statuses as of 11/29/2019) Medications Medication Sig Dispensed Refills Start Date [...] as of this encounter (statuses as of 11/29/2019) Active Problems Problem Noted Date Leukopenia, unspecified type 10/14/2017 Lupus 01/19/2016 Arthritis 01/19/2016 Essential hypertension 01/19/2016 Hyperlipidemia with target low density lipoprotein (LDL) cholesterol less 08/2016 than 100 mg/dL documented as of this encounter (statuses as of 11/29/2019) Immunizations Name Administration Dates Next Due Influenza [...] Sign Reading Time Taken Comments Blood Pressure 107/70 11/29/2019 5:00 PM FACILITIES OPERATOR Pulse 89 11/29/2019 5:00 PM FACILITIES OPERATOR Temperature 37.3 C (99.2 F) 11/29/2019 1:18 PM FACILITIES OPERATOR Respiratory Rate 27 11/29/2019 5:00 PM FACILITIES OPERATOR Oxygen Saturation 96% 11/29/2019 5:00 PM FACILITIES OPERATOR Inhaled Oxygen Concentration - - Weight 70.3 kg (155 lb) 11/29/2019 1:18 PM FACILITIES OPERATOR Height - - Body Mass Index 30.27 06/11/2019 6:47 PM CDT documented in this encounter Discharge Instructions Tyrell Roper MD - 11/29/2019 RETURN FOR ANY QUESTIONS OR CONCERNS Today you were seen by Tyrell Del Angel Jr., MD You were seen today for Chief Complaint Patient presents with Chest Pain Shortness of Breath Your ER diagnosis was ICD-10-CM ICD-9-CM 1. Chest pain, unspecified type R07.9 786.50 2. Dyspnea, unspecified type R06.00 786.09 3. Urinary tract infection without hematuria, site unspecified N39.0 599.0 NO LIFE-THREATENING FINDINGS ON TODAY'S EXAM. YOUR PRESCRIPTIONS : Check out [employer] for medication discounts Medication List ASK your doctor about these medications aspirin 325 mg tablet azaTHIOprine 50 mg tablet Commonly known as: IMURAN benzonatate 200 mg capsule Commonly known as: [...] tablet Commonly known as: COZAAR MULTIVITAMIN ORAL omeprazole 40 mg capsule Commonly known as: [...] 1. A PHYSICIAN OF YOUR CHOICE 2. [facility], . LOCATIONS IN [facility] 3. [facility], [address], [place]; OR, IF YOU WISH TO FOLLOW-UP WITHIN THE [facility], MAY TRY THESE OPTIONS (CLINIC APPOINTMENTS AVAILABLE ON CUOV-AW-SLMH BASIS): 1. SCHEDULE AN APPOINTMENT ONLINE AT [email or web address] 2. OR CALL THE [facility] ACCESS CENTER AT OR 3. OR CALL YOUR [facility] PHYSICIAN'S OFFICE DIRECTLY IF YOU ARE ALREADY AN ESTABLISHED [facility] PATIENT. [facility] RETURN TO WORK / SCHOOL EXCUSE [employer] Lauren WAS SEEN IN THE ER AND DISCHARGED 11/29/2019 TODAY, 5:45 PM & May return to Work / [...] No school TYRELL DEL ANGEL Jr., MD [facility] EMERGENCY DEPRTMENT [address] [place] [address] [place] [address] ### The patient may have been given Narcotic pain medications during their stay in the ED that may show up on a Drug Screen. The hospital discharge paper work will identify these medications. AttachmentsThe following attachments cannot be sent through Care Everywhere.Bladder Infection, Female (Adult) (Scottish)Shortness of Breath ( Dyspnea) (Scottish)documented in this encounter Plan of Treatment Name Type Priority Associated Diagnoses Date/Time BLOOD CULTURE SCREEN LAB STAT Chest pain, unspecified 11/29/2019 3:48 PM FACILITIES OPERATOR type Dyspnea, unspecified type BLOOD CULTURE SCREEN LAB STAT Chest pain, unspecified 11/29/2019 3:59 PM FACILITIES OPERATOR type Dyspnea, unspecified type Name Type Priority Associated Diagnoses Order Schedule BLOOD CULTURE SCREEN LAB Routine Chest pain, unspecified ONCE for 1 Occurrences type starting 11/29/2019 until Dyspnea, unspecified type 11/29/2019 BLOOD CULTURE SCREEN LAB Routine Chest pain, unspecified ONCE for 1 Occurrences type starting 11/29/2019 until Dyspnea, unspecified type 11/29/2019 URINE CULTURE LAB Routine Urinary tract infection ONCE for 1 Occurrences without hematuria, site starting 11/29/2019 until unspecified 11/29/2019 Health Maintenance Due Date Last Done Comments [...] Priority Date/Time Associated Diagnosis Comments URINALYSIS STAT 11/29/2019 4:00 Chest pain, Results for this PM FACILITIES OPERATOR unspecified type procedure are in Dyspnea, unspecified the results type section. ADC,CLC OR LCC ONLY - STAT 11/29/2019 3:48 Chest pain, Results for this INFLUENZA A & B PM FACILITIES OPERATOR unspecified type procedure are in DIRECT ANTIGEN Dyspnea, unspecified the results type section. CT CHEST PULMONARY STAT 11/29/2019 2:31 Dyspnea, unspecified Results for this ANGIOGRAM PM FACILITIES OPERATOR type procedure are in the results section. CT ABDOMEN PELVIS W STAT 11/29/2019 2:31 Dyspnea, unspecified Results for this CONTRAST PM FACILITIES OPERATOR type procedure are in the results section. XR CHEST 1 VW STAT 11/29/2019 1:45 Chest pain, Results for this PM FACILITIES OPERATOR unspecified type procedure are in the results section. CBC WITH DIFFERENTIAL STAT 11/29/2019 1:26 Chest pain, Results for this PM FACILITIES OPERATOR unspecified type procedure are in the results section. N-TERMINAL PRO-BNP STAT 11/29/2019 1:26 Chest pain, Results for this PM FACILITIES OPERATOR unspecified type procedure are in the results section. ACTIVATED PARTIAL STAT 11/29/2019 1:26 Chest pain, Results for this THRMPLAS BHARGAV PM FACILITIES OPERATOR unspecified type procedure are in the results section. PROTHROMBIN TIME / STAT 11/29/2019 1:26 Chest pain, Results for this INR PM FACILITIES OPERATOR unspecified type procedure are in the results section. CBC WITH DIFFERENTIAL Routine 11/29/2019 1:26 Chest pain, Results for this PM FACILITIES OPERATOR unspecified type procedure are in the results section. BASIC METABOLIC PANEL STAT 11/29/2019 1:26 Chest pain, Results for this (NA, K, CL, CO2, PM FACILITIES OPERATOR unspecified type procedure are in GLUCOSE, BUN, the results CREATININE, CA) section. HEPATIC FUNCTION STAT 11/29/2019 1:26 Chest pain, Results for this PANEL ([id number]) PM FACILITIES OPERATOR unspecified type procedure are in (ALB,T.PRO,BILI the results T,BU/BC,ALT,AST,ALK section. PHOS) TROPONIN I STAT 11/29/2019 1:26 Chest pain, Results for this PM FACILITIES OPERATOR unspecified type procedure are in the results section. LIPASE STAT 11/29/2019 1:26 Chest pain, Results for this PM FACILITIES OPERATOR unspecified type procedure are in the results section. EKG-12 LEAD STAT 11/29/2019 1:16 PM FACILITIES OPERATOR CONSENT/REFUSAL FOR Routine 11/29/2019 1:13 DIAGNOSIS AND PM FACILITIES OPERATOR TREATMENT documented in this encounter Results URINALYSIS (11/29/2019 4:00 PM FACILITIES OPERATOR) APPEARANCE Clear Clear [facility] COLOR Yellow Yellow [facility] PH 6.0 4.8 - 8.0 [facility] SP GRAVITY >1.060 (H) 1.003 - 1.030 [facility] GLU U QUAL Normal Normal [facility] BLOOD Negative Negative [facility] KETONES Negative Negative [facility] PROTEIN Negative Negative [facility] UROBILIN Normal Normal [facility] BILIRUBIN Negative Negative [facility] NITRITE Positive (A) Negative [facility] LEUK YUDI Negative Negative [facility] RBC/HPF 1 0 - 3 HPF [facility] WBC/HPF 8 (H) 0 - 5 HPF [facility] BACTERIA Few (A) Negative [facility] SQ EPITH 3 HPF [facility] Specimen Urine - URINE, CLEAN CATCH Performing Organization Address City/[facility]/Zipcode Phone Number [facility] CLIA: [id number], [address] [place] [address] ADC,CLC OR LCC ONLY - INFLUENZA A & B DIRECT ANTIGEN (11/29/2019 3:48 PM FACILITIES OPERATOR) Influenza A Negative Negative [facility] Influenza B Negative Negative [facility] Specimen Swab - NARE, LEFT SIDE Performing Organization Address [facility]/Zipcode Phone Number [facility] CLIA: [id number], [address] [place] [address] ABDOMEN PELVIS W CONTRAST (11/29/2019 2:31 PM FACILITIES OPERATOR) Specimen Impressions Performed At PACS/VR/DOSE No acute intra-abdominal abnormality. Diverticulosis without acute diverticulitis. Status post cholecystectomy. Mild bladder wall thickening favored to be related to underdistention, less likely cystitis. Preliminary Report Dictated by Resident: Rudolph Jackman I, Chico Sarmiento MD., have reviewed this study and agree with the above report. Narrative Performed At EXAM: CT ABDOMEN AND PELVIS WITH CONTRAST PACS/VR/DOSE HISTORY: Suspected metastatic abdominal neoplasm. COMPARISON: None. TECHNIQUE AND FINDINGS: Contiguous axial imaging from the level of the lung bases through the pubic symphysis was performed after the uncomplicated administration of 120 cc of intravenous Omnipaque contrast. Coronal and sagittal reconstructions were obtained. Auto mA and/or iterative reconstruction were used to reduce radiation dose. FINDINGS: LOWER THORAX: Please refer to the separately dictated CT chest for detailed findings. LIVER: No focal hepatic lesions. Normal contour. GALLBLADDER AND BILIARY TREE: Status post cholecystectomy. The common bile duct measures up to 9 mm in diameter, consistent with reservoir phenomenon. SPLEEN: Multiple splenic calcified granulomas. No splenomegaly. PANCREAS: No ductal dilation or masses. ADRENAL GLANDS: No adrenal nodules. KIDNEYS: No hydronephrosis bilaterally. A left simple renal cyst measures 2.1 cm. PERITONEUM AND RETROPERITONEUM: No free air or fluid. LYMPH NODES: No lymphadenopathy. GI TRACT: No dilation or wall thickening. Diverticulosis without acute diverticulitis. PELVIS/BLADDER: Mild bladder wall thickening likely related to underdistention, less likely cystitis. VESSELS: Unremarkable. BONES AND SOFT TISSUES: Grade 2 anterolisthesis of L5 over S1 with bilateral pars defects. Degenerative changes are most prominent at the lumbosacral junction. Procedure Note [facility], Radiant Results Inft User - 11/29/2019 3:25 PM FACILITIES OPERATOR EXAM: CT ABDOMEN AND PELVIS WITH CONTRAST HISTORY: Suspected metastatic abdominal neoplasm. COMPARISON: None. TECHNIQUE AND FINDINGS: Contiguous axial imaging from the level of the lung bases through the pubic symphysis was performed after the uncomplicated administration of 120 cc of intravenous Omnipaque contrast. Coronal and sagittal reconstructions were obtained. Auto mA and/or iterative reconstruction were used to reduce radiation dose. FINDINGS: LOWER THORAX: Please refer to the separately dictated CT chest for detailed findings. LIVER: No focal hepatic lesions. Normal contour. GALLBLADDER AND BILIARY TREE: Status post cholecystectomy. The common bile duct measures up to 9 mm in diameter, consistent with reservoir phenomenon. SPLEEN: Multiple splenic calcified granulomas. No splenomegaly. PANCREAS: No ductal dilation or masses. ADRENAL GLANDS: No adrenal nodules. KIDNEYS: No hydronephrosis bilaterally. A left simple renal cyst measures 2.1 cm. PERITONEUM AND RETROPERITONEUM: No free air or fluid. LYMPH NODES: No lymphadenopathy. GI TRACT: No dilation or wall thickening. Diverticulosis without acute diverticulitis. PELVIS/BLADDER: Mild bladder wall thickening likely related to underdistention, less likely cystitis. VESSELS: Unremarkable. BONES AND SOFT TISSUES: Grade 2 anterolisthesis of L5 over S1 with bilateral pars defects. Degenerative changes are most prominent at the lumbosacral junction. IMPRESSION No acute intra-abdominal abnormality. Diverticulosis without acute diverticulitis. Status post cholecystectomy. Mild bladder wall thickening favored to be related to underdistention, less likely cystitis. Preliminary Report Dictated by Resident: Chico Darling MD., have reviewed this study and agree with the above report. Performing Organization Address City/State/Zipcode Phone Number PACS/VR/DOSE CT CHEST PULMONARY ANGIOGRAM (11/29/2019 2:31 PM FACILITIES OPERATOR) Specimen Impressions Performed At PACS/VR/DOSE 1. No pulmonary embolism. 2. No acute intrathoracic abnormality. Preliminary Report Dictated by Resident: Chico Darling MD., have reviewed this study and agree with the above report. Narrative Performed At PROCEDURE: CT ANGIO CHEST WITH CONTRAST - PE PROTOCOL PACS/VR/DOSE CLINICAL INDICATION: Shortness of breath COMPARISON: Same day chest radiograph. TECHNIQUE AND FINDINGS: A helical CT scan was performed and reconstructed using 1.25 mm slice thickness from the lung bases through the apices after the uncomplicated administration of 100 cc of intravenous Omnipaque contrast. Sagittal and coronal reconstructions, and axial maximum intensity projections were generated and reviewed to further define anatomy and possible pathology. (DFOV=35.7 cm) FINDINGS: PULMONARY ARTERIES: Technically adequate enhancement of the pulmonary arteries reveals no pulmonary embolism. LINES AND TUBES: None LOWER NECK/THYROID: The visualized portions of thyroid gland are normal. LUNGS: Calcified granulomas in the right middle and left upper lobes. The lungs are otherwise clear. Mild bibasilar atelectasis. PLEURA: No pleural effusion or pneumothorax. CENTRAL AIRWAY: No bronchiectasis, mucus plugging, or bronchial wall thickening. MEDIASTINUM: No mediastinal lymphadenopathy. Normal cardiac morphology. No pericardial effusion. AORTA AND GREAT VESSELS: The visualized portions of the aorta are normal in caliber. BONES AND SOFT TISSUES: Remote fourth lateral left rib fracture. VISUALIZED UPPER ABDOMEN: Please refer to the separately dictated CT abdomen pelvis for detailed findings. Procedure Note [facility], Radiant Results Inft User - 11/29/2019 3:28 PM FACILITIES OPERATOR PROCEDURE: CT ANGIO CHEST WITH CONTRAST - PE PROTOCOL CLINICAL INDICATION: Shortness of breath COMPARISON: Same day chest radiograph. TECHNIQUE AND FINDINGS: A helical CT scan was performed and reconstructed using 1.25 mm slice thickness from the lung bases through the apices after the uncomplicated administration of 100 cc of intravenous Omnipaque contrast. Sagittal and coronal reconstructions, and axial maximum intensity projections were generated and reviewed to further define anatomy and possible pathology. (DFOV=35.7 cm) FINDINGS: PULMONARY ARTERIES: Technically adequate enhancement of the pulmonary arteries reveals no pulmonary embolism. LINES AND TUBES: None LOWER NECK/THYROID: The visualized portions of thyroid gland are normal. LUNGS: Calcified granulomas in the right middle and left upper lobes. The lungs are otherwise clear. Mild bibasilar atelectasis. PLEURA: No pleural effusion or pneumothorax. CENTRAL AIRWAY: No bronchiectasis, mucus plugging, or bronchial wall thickening. MEDIASTINUM: No mediastinal lymphadenopathy. Normal cardiac morphology. No pericardial effusion. AORTA AND GREAT VESSELS: The visualized portions of the aorta are normal in caliber. BONES AND SOFT TISSUES: Remote fourth lateral left rib fracture. VISUALIZED UPPER ABDOMEN: Please refer to the separately dictated CT abdomen pelvis for detailed findings. IMPRESSION 1. No pulmonary embolism. 2. No acute intrathoracic abnormality. Preliminary Report Dictated by Resident: Chico Darling MD., have reviewed this study and agree with the above report. Performing Organization Address [facility] Phone Number PACS/VR/DOSE Chest 1 View (11/29/2019 1:45 PM FACILITIES OPERATOR) Specimen Impressions Performed At FINDINGS/IMPRESSION: PACS/VR/DOSE No focal consolidation, pleural effusion, or pneumothorax. The cardiac silhouette is normal in size. No acute osseous abnormality. Preliminary Report Dictated by Resident: Chico Darling MD., have reviewed this study and agree with the above report. Narrative Performed At PROCEDURE: XR CHEST 1 VW PACS/VR/DOSE CLINICAL INDICATION: chest pain COMPARISON: 08/04/2019 TECHNIQUE: A frontal view of the chest was obtained Procedure Note [facility], Radiant Results Inft User - 11/29/2019 1:55 PM FACILITIES OPERATOR PROCEDURE: XR CHEST 1 VW CLINICAL INDICATION: chest pain COMPARISON: 08/04/2019 TECHNIQUE: A frontal view of the chest was obtained IMPRESSION FINDINGS/IMPRESSION: No focal consolidation, pleural effusion, or pneumothorax. The cardiac silhouette is normal in size. No acute osseous abnormality. Preliminary Report Dictated by Resident: Chico Darling MD., have reviewed this study and agree with the above report. Performing Organization Address [facility] Phone Number PACS/VR/DOSE CBC WITH DIFFERENTIAL (11/29/2019 1:26 PM FACILITIES OPERATOR) WBC 3.35 (L) 4.30 - 11.10 [facility] 10*3/L [facility] RBC 4.32 3.93 - 5.25 [facility] 10*6/L HOSPITAL [facility] HGB 12.8 11.6 - 15.0 [facility] g/dL HOSPITAL [facility] HCT 39.7 35.7 - 45.2 % [facility] MCV 91.9 80.6 - 95.5 fL [facility] MCH 29.6 25.9 - 32.8 pg [facility] MCHC 32.2 31.6 - 35.1 [facility] g/dL HOSPITAL [facility] RDW-SD 46.0 39.0 - 49.9 fL [facility] RDW-CV 13.5 12.0 - 15.5 % [facility] PLT 209 166 - 358 [facility] 10*3/L [facility] MPV 10.3 9.5 - 12.9 fL [facility] NRBC/100 WBC 0.0 0.0 - 10.0 /100 [facility] WBCs [facility] NRBC x10^3 <0.01 10*3/L [facility] GRAN MAT (NEUT) % 73.4 % [facility] IMM GRAN % 1.20 % [facility] LYMPH % 19.7 % [facility] MONO % 3.3 % [facility] EOS % 2.1 % [facility] BASO % 0.3 % [facility] GRAN MAT x10^3(ANC) 2.46 1.88 - 7.09 [facility] 10*3/uL [facility] IMM GRAN x10^3 0.04 0.00 - 0.06 [facility] 10*3/uL [facility] LYMPH x10^3 0.66 (L) 1.32 - 3.29 [facility] 10*3/uL [facility] MONO x10^3 0.11 (L) 0.33 - 0.92 [facility] 10*3/uL [facility] EOS x10^3 0.07 0.03 - 0.39 [facility] 10*3/uL [facility] BASO x10^3 <0.03 0.01 - 0.07 [facility] 10*3/uL [facility] Specimen Blood - VENOUS Performing Organization Address City/State/Zipcode Phone Number [facility] CLIA: [id number], [address] [place] [address] N-TERMINAL PRO-BNP (11/29/2019 1:26 PM FACILITIES OPERATOR) NT-proBNP 128 (H) <=125 pg/mL [facility] Specimen Blood - VENOUS Narrative Performed At [facility] has been reported to cause a negative [facility] bias, interpret results relative to patient's use of biotin. Performing Organization Address City/[facility] Phone Number [facility] CLIA: [id number], [address] [place] [address] Prothrombin Time (PT) / INR (11/29/2019 1:26 PM FACILITIES OPERATOR) [facility] PROTIME PATIENT 12.5 12.0 - 14.7 [facility] HOSPITAL LABORATORY INR 1.0Comment: Normal [facility] INR <1.1; Warfarin [facility] Therapeutic range LABORATORY 2.0 to 3.0 or 2.5 to 3.5, depending upon the indications. Specimen Blood - VENOUS Performing Organization Address [facility] Phone Number [facility] CLIA: [id number], [address] [place] [address] aPTT (11/29/2019 1:26 PM FACILITIES OPERATOR) [facility] APTT Patient 29 23 - 38 Seconds [facility] Specimen Blood - VENOUS Narrative Performed At The [facility] patient population mean normal value [facility] for aPTT is 30 seconds. Performing Organization Address [facility] Phone Number [facility] CLIA: [id number], [address] [place] [address] Troponin I (11/29/2019 1:26 PM FACILITIES OPERATOR) [facility] TROPONIN I 0.015 <=0.034 ng/mL [facility] Specimen Blood - VENOUS Narrative Performed At Equal or Less than 0.034 ng/ml---Normal [facility] Note: Cardiac troponin begins to rise [...] patient's use of biotin. Performing Organization Address [facility]/Zipcode Phone Number [facility] CLIA: [id number], [address] [place] [address] Lipase Serum (11/29/2019 1:26 PM FACILITIES OPERATOR) LIPASE 168 0 - 220 U/L [facility] Specimen Blood - VENOUS Performing Organization Address [facility] Phone Number [facility] CLIA: [id number], [address] [place] [address] Hepatic Function Panel (ALB, T.PRO, BILI T, BU/BC, ALT, AST, ALK PHOS) (2019 1:26 PM FACILITIES OPERATOR) TOTAL BILI 0.5 0.1 - 1.1 mg/dL [facility] [facility] BILI UNCON 0.3 0.1 - 1.1 mg/dL [facility] BILI CONJ 0.0 0.0 - 0.3 mg/dL [facility] T PROTEIN 7.6 6.3 - 8.2 g/dL [facility] ALBUMIN 3.6 3.5 - 5.0 g/dL [facility] ALK PHOS 56 34 - 122 U/L [facility] ALTv 102 (H) 5 - 35 U/L [facility] AST(SGOT) 188 (H) 13 - 40 U/L [facility] Specimen Blood - VENOUS Performing Organization Address [facility] [place] Phone Number [facility] CLIA: [id number], [address] [place] [address] Basic Metabolic Panel (NA, K, CL, CO2, GLUCOSE, BUN, CREATININE, CA) (2019 1:26 PM FACILITIES OPERATOR) NA 132 (L) 135 - 145 [facility] mmol/L [facility] K 4.0 3.5 - 5.0 [facility] mmol/L [facility] CL 98 98 - 108 mmol/L [facility] CO2 TOTAL 24 23 - 31 mmol/L [facility] AGAP 10 2 - 16 [facility] BUN 26 (H) 7 - 23 mg/dL [facility] GLUCOSE 107 70 - 110 mg/dL [facility] CREATININE 1.03 0.50 - 1.04 [facility] mg/dL [facility] CALCIUM 9.5 8.6 - 10.6 [facility] mg/dL [facility] eGFR Calculation 52.5 mL/min/1.73m2 [facility] (Non[facility] LABORATORY Brazilian) eGFR Calculation 63.7 mL/min/1.73m2 [facility] () [facility] Specimen Blood - VENOUS Narrative Performed At Association of Glomerular Filtration Rate (GFR) [facility] and Staging of Kidney Disease* + [...] abnormalities in imaging tests). Performing Organization Address City/State/Zipcode Phone Number [facility] CLIA: [id number], [address] [place] [address] documented in this encounter Visit Diagnoses Diagnosis Chest pain, unspecified type - Primary Dyspnea, unspecified type Urinary tract infection without hematuria, site unspecified documented in this encounter Administered Medications Medication Order MAR Action Action Date Dose Rate Site iohexol (OMNIPAQUE 350 BULK-100 Given 11/29/2019 2:26 PM FACILITIES OPERATOR 100 mL mL) injection 100 mL 100 mL, Intravenous, ONCE, 1 dose, 11/29/19 at 1445, Routine documented in this encounter Insurance Payer Benefit Plan Subscriber ID Effective Phone Address Type / Group Dates AETNA - AETNA [id number] 2015-Nevaeh ALEXANDER Medicare Adv MANAGED MEDICARE ADV nt [id number] [place] [address] documented as of this encounter"
--- OUTSIDE RECORDS SUMMARY | 2020-01-02 17:01 | XMS REPORT | Summary of Care ---
:1945 Author Organization [facility] - Health Address [address] [place] [address] Care Team Providers Name Role Phone Sergio Berrios MD Primary Care Provider Encounter Details Date Type Department Care Team Description 12/09/2019 Orders Only [facility] Doctor Unassigned, No [address] [facility] [place] [address] [address] [place] [address] Allergies Active Allergy Reactions Severity Noted Date Comments Levofloxacin Unknown - See comments 01/11/2016 Penicillin Unknown - See comments 01/11/2016 Sulfa (Sulfonamide Antibiotics) Unknown - See comments 01/11/2016 Sulfur Dioxide Hives High 11/19/2019 documented as of this encounter (statuses as of 12/09/2019) Medications Medication Sig Dispensed Refills Start Date [...] as of this encounter (statuses as of 12/09/2019) Active Problems Problem Noted Date Leukopenia, unspecified type 10/14/2017 Lupus 01/19/2016 Arthritis 01/19/2016 Essential hypertension 01/19/2016 Hyperlipidemia with target low density lipoprotein (LDL) cholesterol less 08/2016 than 100 mg/dL documented as of this encounter (statuses as of 12/09/2019) Immunizations Name Administration Dates Next Due Influenza [...] Procedure Name Priority Date/Time Associated Diagnosis Comments EXTERNAL PROVIDER Routine 12/09/2019 12:01 AM FIRST AID 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
--- OUTSIDE RECORDS SUMMARY | 2020-01-02 17:01 | XMS REPORT | Summary of Care ---
:1945 Author Organization [facility] - Health Address [address] [place] [address] Care Team Providers Name Role Phone Sergio Berrios MD Primary Care Provider Encounter Details Date Type Department Care Team Description 12/17/2019 Orders Only [facility] Doctor Unassigned, No [address] [facility] [place] [address] [address] [place] [address] Allergies Active Allergy Reactions Severity Noted Date Comments Levofloxacin Unknown - See comments 01/11/2016 Penicillin Unknown - See comments 01/11/2016 Sulfa (Sulfonamide Antibiotics) Unknown - See comments 01/11/2016 Sulfur Dioxide Hives High 11/19/2019 documented as of this encounter (statuses as of 12/17/2019) Medications Medication Sig Dispensed Refills Start Date [...] as of this encounter (statuses as of 12/17/2019) Active Problems Problem Noted Date Leukopenia, unspecified type 10/14/2017 Lupus 01/19/2016 Arthritis 01/19/2016 Essential hypertension 01/19/2016 Hyperlipidemia with target low density lipoprotein (LDL) cholesterol less 08/2016 than 100 mg/dL documented as of this encounter (statuses as of 12/17/2019) Immunizations Name Administration Dates Next Due Influenza [...] Date/Time Associated Diagnosis Comments EXTERNAL PROVIDER Routine 12/17/2019 12:01 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
--- OUTSIDE RECORDS SUMMARY | 2020-01-02 17:01 | XMS REPORT | Summary of Care ---
:1945 Author Organization [facility] - [facility] Address [address] [place] [address] Care Team Providers Name Role Phone Sergio Berrios MD Primary Care Provider Reason for Visit Reason Comments Notification Encounter Details Date Type Department Care Team Description 12/09/2019 Telephone [facility] Family Medicine Sergio Berrios MD Notification - [place] [address] [facility] [address] [place] [address] [place] [address] Allergies Active Allergy Reactions Severity [...] Type / Group Dates AETNA - AETNA [id number] 2015-Nevaeh Horton O BOX Medicare Adv MANAGED MEDICARE ADV nt [id number] [place] [address] documented as of this encounter
--- OUTSIDE RECORDS SUMMARY | 2020-01-02 17:02 | XMS REPORT | Summary of Care ---
:1945 Author Organization [facility] Address [address] [place] [address] Care Team Providers Name Role Phone Sergio Berrios MD Primary Care Provider Reason for Visit Reason Comments Fever Headache Shortness of Breath Auth/Cert Status Reason Specialty Diagnoses / Procedures Referred By Contact Referred To Contact Phlebotomy Diagnoses Intermittent fever Adc Pob Lab Draw Procedures CBC/DIFFERENTIAL (NO PLATELET)- Professional Office Building [address] [facility] , [address] [place] [address] Encounter Details Date Type Department Care Team Description 12/21/2019 Office Visit [facility] Family Layo, Olga, Intermittent fever (Primary Dx); Medicine - [place] DRIER New daily persistent headache; [address] Fatigue, unspecified type [place], [place] [address] [address] [facility] [address] [place] [id number] Allergies Active Allergy Reactions Severity Noted Date Comments Levofloxacin Unknown - See comments 01/11/2016 Penicillin Unknown - See comments 01/11/2016 Sulfa (Sulfonamide Antibiotics) Unknown - See comments 01/11/2016 Sulfur Dioxide Hives High 11/19/2019 documented as of this encounter (statuses as of 12/21/2019) Medications Medication Sig Dispensed Refills Start Date End Date Status RESTASIS 0.05 % 3 01/04/2016 Active ophthalmic drops fenofibrate Take 1 Tab 90 Tab 3 01/19/2016 Active (TRICOR) 145 mg by mouth tablet daily. estradiol Take 1 Tab 90 Tab 3 01/19/2016 Active (ESTRACE) 0.5 mg by mouth tablet daily. aspirin 325 mg Take 325 mg 0 Active tablet by mouth daily. ASCORBATE CALCIUM Take by 0 Active (VITAMIN C ORAL) mouth. VITAMIN B COMPLEX Take by 0 Active ORAL mouth. CALCIUM Take by 0 Active CARBONATE/VITAMIN mouth. D2 (CALCIUM + VITAMIN D ORAL) MULTIVITAMIN ORAL Take by 0 Active mouth. losartan 50 mg TAKE 1 2 09/16/2017 Active tablet TABLET (50 MG) BY ORAL ROUTE ONCE DAILY Cholecalciferol, Take by 0 Active Vitamin D3, mouth. (VITAMIN D3) 1,000 unit capsule escitalopram Take 1 90 tablet 1 11/09/2019 Active oxalate 10 mg tablet by tabletIndications: mouth daily. Depression, unspecified depression type omeprazole 40 mg Take 1 90 capsule 1 11/09/2019 Active capsuleIndications capsule by : Chronic GERD mouth daily. benzonatate 200 mg Take 1 25 capsule 0 11/09/2019 Active capsuleIndications capsule by : Acute URI mouth 3 (three) times daily as needed for Cough. predniSONE 10 mg Take 1 14 tablet 0 11/19/2019 Active tabletIndications: tablet by Lupus, Arthritis mouth 2 (two) times daily. HYDROcodone-acetam Take 1 30 tablet 0 11/19/2019 Active inophen 7.5-325 mg tablet by per mouth every tabletIndications: 6 (six) Arthritis hours as needed for Pain. Nitrofurantoin&Nit Take 1 10 capsule 0 11/29/2019 Active . Macrocryst capsule by (MACROBID) 100 mg mouth 2 capsuleIndications (two) times : Chest pain, daily. unspecified type, Dyspnea, unspecified type, Urinary tract infection without hematuria, site unspecified azaTHIOprine 50 mg Take 50 mg 0 Discontinued tablet by mouth 0 (Patient daily. Reported) documented as of this encounter (statuses as of 12/21/2019) Active Problems Problem Noted Date Leukopenia, unspecified type 10/14/2017 Lupus 01/19/2016 Arthritis 01/19/2016 Essential hypertension 01/19/2016 Hyperlipidemia with target low density lipoprotein (LDL) cholesterol less 08/2016 than 100 mg/dL documented as of this encounter (statuses as of 12/21/2019) Immunizations Name Administration Dates Next Due Influenza [...] Sign Reading Time Taken Comments Blood Pressure 125/73 12/21/2019 4:00 PM MANUFACTURERS REPRESENTATIVE Pulse 79 12/21/2019 4:00 PM MANUFACTURERS REPRESENTATIVE Temperature 36.9 C (98.4 F) 12/21/2019 4:00 PM MANUFACTURERS REPRESENTATIVE Respiratory Rate - - Oxygen Saturation 95% 12/21/2019 4:00 PM MANUFACTURERS REPRESENTATIVE Inhaled Oxygen Concentration - - Weight 67.1 kg (148 lb) 12/21/2019 4:00 PM MANUFACTURERS REPRESENTATIVE Height 152.4 cm (5') 12/21/2019 4:00 PM MANUFACTURERS REPRESENTATIVE Body Mass Index 28.9 12/21/2019 4:00 PM MANUFACTURERS REPRESENTATIVE documented in this encounter Patient Instructions Patient InstructionsOlga Vasques FNP - 12/21/2019 4:00 PM MANUFACTURERS REPRESENTATIVE - home care: Rest Increase clear fluid intake to maintain hydration. Vitamin C Advised to take Tylenol or Ibuprofen as per label recommendation for fever. May take Delsym or Robitussin as needed for cough. Irrigate your nose with normal saline moisture spray 2 or 3 times a day. You may use a spray, squeeze bottle, or nasal pot. - Advised to follow up with PCP, return to Urgent Care, or go to the nearest Emergency Department sooner for any new, worsening, persistent, or concerning symptoms. FACTURERS REPRESENTATIVE documented in this encounter Progress Notes Olga Vasques FNP - 12/21/2019 4:00 PM CST Cc: Chief Complaint Patient presents with Fever Headache Shortness of Breath Kusum Lauren is a 74 year old female that presents to the clinic with her daughter for intermittent fatigue, fever: 99-102F, shortness of breath, dry cough, headache, and episodes of hypotension with blood pressure being 80's systolic for the past month. She was seen in the [facility] ER in the past month for these symptoms, and then followed up with cardiology(Dr. Orozco), rheumatology (Dr. Chávez), and pulmonology (Dr. Garcia- [facility]) regarding these symptoms. Her coil former started her on prednisone 20mg daily x 1 month for lupus flare. Cardiology performed stress test and echo and pulmonology has ordered a sleep study. URI Presenting symptoms: cough, fatigue and fever Presenting symptoms: no congestion, no ear pain, no rhinorrhea and no sore throat Cough: Cough characteristics: Dry Fever: Max temp prior to arrival: 99-102F Severity: Moderate Onset quality: Gradual Duration: 1 month Timing: Intermittent Progression: Worsening Chronicity: New Relieved by: advil. Worsened by: Nothing Associated symptoms: headaches Associated symptoms: no arthralgias and no myalgias Risk factors: no sick contacts Allergies Kusum is allergic to sulfur dioxide; levaquin [levofloxacin]; penicillin; and sulfa (sulfonamide antibiotics). Medications Outpatient Medications Prior to Visit Medication Sig Dispense Refill Nitrofurantoin&Nit. Macrocryst (MACROBID) 100 mg capsule Take 1 capsule by mouth 2 (two) times daily. 10 capsule 0 HYDROcodone-acetaminophen 7.5-325 mg per tablet Take 1 tablet by mouth every 6 (six) hours as needed for Pain. 30 tablet 0 predniSONE 10 mg tablet Take 1 tablet by mouth 2 (two) times daily. 14 tablet 0 benzonatate 200 mg capsule Take 1 capsule by mouth 3 (three) times daily as needed for Cough. 25capsule 0 escitalopram oxalate 10 mg tablet Take 1 tablet by mouth daily. 90 tablet 1 omeprazole 40 mg capsule Take 1 capsule by mouth daily. 90 capsule 1 Cholecalciferol, Vitamin D3, (VITAMIN D3) 1,000 unit capsule Take by mouth. losartan 50 mg tablet TAKE 1 TABLET (50 MG) BY ORAL ROUTE ONCE DAILY 2 azaTHIOprine 50 mg tablet Take 50 mg by mouth daily. ASCORBATE CALCIUM (VITAMIN C ORAL) Take by mouth. aspirin 325 mg tablet Take 325 mg by mouth daily. CALCIUM CARBONATE/VITAMIN D2 (CALCIUM + VITAMIN D ORAL) Take by mouth. MULTIVITAMIN ORAL Take by mouth. VITAMIN B COMPLEX ORAL Take by mouth. estradiol (ESTRACE) 0.5 mg tablet Take 1 Tab by mouth daily. 90 Tab 3 fenofibrate (TRICOR) 145 mg tablet Take 1 Tab by mouth daily. 90 Tab 3 RESTASIS 0.05 % ophthalmic drops 3 No facility-administered medications prior to visit. Histories Past Medical History: Diagnosis Date Depression Diverticulosis Fatty liver 2012 Hyperlipidemia Hypertension IBS (irritable bowel syndrome) Lupus (systemic lupus erythematosus) Menopause Systemic sclerosis Past Surgical History: Procedure Laterality Date BREAST SURGERY CHOLECYSTECTOMY HYSTERECTOMY LIVER BIOPSY 2013 SPINE SURGERY Social History Socioeconomic History Marital status: Spouse name: Not on file Number of children: Not on file Years of education: Not on file Highest education level: Not on file Occupational History Not on file Social Needs Financial resource strain: Not on file Food insecurity: Worry: Not on file Inability: Not on file Transportation needs: Medical: Not on file Non-medical: Not on file Tobacco Use Smoking status: Former Smoker Last attempt to quit: 11/20/1999 Years since quittin.0 Smokeless tobacco: Never Used Substance and Sexual Activity Alcohol use: No Drug use: No Sexual activity: Not on file Lifestyle Physical activity: Days per week: Not on file Minutes per session: Not on file Stress: Not on file Relationships Social connections: Talks on phone: Not on file Gets together: Not on file Attends latter-day service: Not on file Active member of club or organization: Not on file Attends meetings of clubs or organizations: Not on file Relationship status: Not on file Intimate partner violence: Fear of current or ex partner: Not on file Emotionally abused: Not on file Physically abused: Not on file Forced sexual activity: Not on file Other Topics Concern Not on file Social History Narrative Lives at home with . Family History Problem Relation Age of Onset Stroke Mother Heart Mother Diabetes Mother Coronary Heart Disease Mother Cancer Father kidney Cancer Maternal Uncle bone Diabetes Maternal Grandmother Review of Systems Constitutional: Positive for diaphoresis, fatigue and fever. HENT: Negative for congestion, ear discharge, ear pain, rhinorrhea and sore throat. Respiratory: Positive for cough and shortness of breath (on exertion). Cardiovascular: Negative for chest pain. Musculoskeletal: Negative for arthralgias, joint swelling and myalgias. Skin: Negative for rash. Neurological: Positive for headaches. Negative for syncope, weakness and numbness. Psychiatric/Behavioral: Negative for agitation and confusion. PROCEDURE: CT ANGIO CHEST WITH CONTRAST - [...] study and agree with the above report. Vital Signs BP 125/73 (BP Location: Right arm, Patient Position: Sitting, BP CUFF SIZE: Adult Medium) | Pulse 79 | Temp 36.9 C (98.4 F) (Oral) | Ht 5' (1.524 m) | Wt 148 lb (67.1 kg) | SpO2 95% | BMI 28.90 kg/m Physical Exam Constitutional: She is oriented to person, place, and time. She appears well- developed and well-nourished. No distress. HENT: Head: Normocephalic and atraumatic. Right Ear: Tympanic membrane and ear canal normal. Left Ear: Tympanic membrane and ear canal normal. Nose: Nose normal. Right sinus exhibits no maxillary sinus tenderness and no frontal sinus tenderness. Left sinus exhibits no maxillary sinus tenderness and no frontal sinus tenderness. Mouth/Throat: Uvula is midline, oropharynx is clear and moist and mucous membranes are normal. Eyes: Conjunctivae are normal. Cardiovascular: Normal rate, regular rhythm, normal heart sounds and intact distal pulses. No murmur heard. Pulmonary/Chest: Effort normal and breath sounds normal. She has no wheezes. She has no rhonchi. Shehas no rales. Neurological: She is alert and oriented to person, place, and time. She has normal strength. No sensory deficit. Gait normal. Skin: Skin is warm, dry and intact. No rash noted. Psychiatric: She has a normal mood and affect. Her behavior is normal. Thought content normal. Nursing note and vitals reviewed. Assessment/Plan 1. Intermittent fever - CBC WITH DIFFERENTIAL - reviewed most recent lab work, chest xray and CT chest completed during recent ER visit. - patient to sign form to have medical records release/sent over from specialist - rheumatology, pulmonology, and cardiology. 2. New daily persistent headache - CBC WITH DIFFERENTIAL - ER precautions provided for severe headache, weakness, slurred speech, numbness, chest pain, syncope, or any other worsening symptoms. 3. Fatigue, unspecified type - CBC WITH DIFFERENTIAL - consulted Dr. Berrios (PCP) regarding symptom course and treatment. - counseled patient to follow up with specialist as scheduled- rheumatology, pulmonology, and cardiology. Plan of care, desired health behaviors, goals, and medication discussed with patient. Education resources provided and reviewed with AVS. Patient/guardian/family verbalized understanding & agrees to plan of care. This visit did not involve counseling and coordination that comprised more than 50% of the visit time. Barriers to care: none. Ability to manage care: well. Olga Vasques APRN, FNP-C 12/21/2019 4:47 PM documented in this encounter Plan of Treatment Name Type Priority Associated Diagnoses Order Schedule CBC WITH DIFF LAB Routine Intermittent fever Ordered: 12/21/2019 New daily persistent headache Fatigue, unspecified type CBC WITH DIFFERENTIAL LAB Routine Intermittent fever Ordered: 12/21/2019 New daily persistent headache Fatigue, unspecified type Health Maintenance Due Date Last Done Comments [...] filedocumented in this encounter Visit Diagnoses Diagnosis Intermittent fever - Primary Fever, unspecified New daily persistent headache Fatigue, unspecified type documented in this encounter Insurance Payer Benefit Plan Subscriber ID Effective Phone Address Type / Group Dates AETNA - AETNA [id number] 2015-Nevaeh Horton O [address]OX Medicare Adv MANAGED MEDICARE ADV nt [id number] [place] [address] documented as of this encounter"
--- OUTSIDE RECORDS SUMMARY | 2020-01-02 17:02 | XMS REPORT | Summary of Care ---
:1945 Author Organization [facility] Address [address] [place] [address] Care Team Providers Name Role Phone Sergio Berrios MD Primary Care Provider Reason for Visit Reason Comments Assessment Triage Encounter Details Date Type Department Care Team Description 12/21/[address] [facility] Family Sergio Berrios MD Assessment (Triage ) Medicine - [place] [address] [place] [phone] Allergies Active Allergy Reactions Severity Noted Date [...] filedocumented in this encounter Plan of Treatment Date Type Specialty Care Team Description 12/21/2019 Office Visit Family Medicine Olga Vasques, WENDY [address] [id number] Health Maintenance Due Date Last Done Comments [...] Type / Group Dates AETNA - AETNA [id number] 2015-Nevaeh Horton O BOX Medicare Adv MANAGED MEDICARE ADV nt [id number] [place] [address] documented as of this encounter
--- OUTSIDE RECORDS SUMMARY | 2020-01-02 17:02 | XMS REPORT | Summary of Care ---
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 Fatigue, unspecified type [place], [place] [address] [address] [address] [place], [place] [phone] Allergies Active Allergy Reactions Severity Noted Date [...] Comments Blood Pressure 125/73 12/21/2019 4:00 PM LUNCHROOM AIDE Pulse 79 12/21/2019 4:00 PM LUNCHROOM AIDE Temperature 36.9 C (98.4 F) 12/21/2019 4:00 PM LUNCHROOM AIDE Respiratory Rate - - Oxygen Saturation 95% 12/21/2019 4:00 PM LUNCHROOM AIDE Inhaled Oxygen Concentration - - Weight 67.1 kg (148 lb) 12/21/2019 4:00 PM LUNCHROOM AIDE Height 152.4 cm (5') 12/21/2019 4:00 PM LUNCHROOM AIDE Body Mass Index 28.9 12/21/2019 4:00 PM LUNCHROOM AIDE documented in this encounter Patient Instructions Patient InstructionsOlga Vasques FNP - 12/21/2019 4:00 PM LUNCHROOM AIDE - home care: Rest Increase clear fluid [...] any new, worsening, persistent, or concerning symptoms. HROOM AIDE documented in this encounter Progress Notes Olga [...] past month. She was seen in the [facility] ER in the past month for these symptoms, and then followed up with cardiology(Dr. Orozco), rheumatology (Dr. Chávez), and pulmonology (Dr. Garcia- [facility]) regarding these symptoms. 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 Preliminary Report Dictated by Resident: Rudolph Jackman [...] Type / Group Dates AETNA - AETNA [id number] 2015-Nevaeh P O BOX Medicare Adv MANAGED MEDICARE ADV nt [id number] [place] [address] documented as of this encounter"
--- OUTSIDE RECORDS SUMMARY | 2020-01-02 17:02 | XMS REPORT | Summary of Care ---
:1945 Author Organization [facility] Address [address] [place] [address] Care Team Providers Name Role Phone Sergio Berrios MD Primary Care Provider Reason for Visit Reason Comments LAB WORK Auth/Cert Status Reason Specialty Diagnoses / Procedures Referred By Contact Referred To Contact Phlebotomy Diagnoses Intermittent fever Adc Pob Lab Draw Procedures CBC/DIFFERENTIAL (NO PLATELET)-LC Professional Office Building [address] [facility] , [address] [place] [address] Encounter Details Date Type Department Care Team Description 12/21/2019 Renewable Energy Consultant Visit [facility] Olga Vasques, [facility] [address] [facility] [address] [place] [address] Intermittent fever Professional Office Pob, Adc Lab Main Building Phlebotomy Lab Professional Office Building [address] [facility] , [address] [place] [address] Allergies Active Allergy Reactions Severity Noted [...] this encounter Visit Diagnoses Diagnosis Intermittent fever Fever, unspecified documented in this encounter Insurance Payer Benefit Plan Subscriber ID Effective Phone Address Type / Group Dates AETNA - AETNA [id number] 2015-Nevaeh [place] O BOX Medicare Adv MANAGED MEDICARE ADV nt [id number] [place] [address] documented as of this encounter
--- OUTSIDE RECORDS SUMMARY | 2020-01-02 17:03 | XMS REPORT | Summary of Care ---
:1945 Author Organization [facility] Address [address] [place] [address] Care Team Providers Name Role Phone Sergio Berrios MD Primary Care Provider Reason for Visit Reason Comments Fever Headache Shortness of Breath Auth/Cert Status Reason Specialty Diagnoses / Procedures Referred By Contact Referred To Contact Phlebotomy Diagnoses Intermittent fever Adc Pob Lab Draw Procedures CBC/DIFFERENTIAL (NO PLATELET)- Professional Office Building [address] [facility] , [address] [place] [address] Encounter Details Date Type Department Care Team Description 12/21/2019 Office Visit [facility] Family Layo, Olga, Intermittent fever (Primary Dx); Medicine - [place] ACCOUNTING CLERKS SUPERVISOR New daily persistent headache; [address] Fatigue, unspecified type [place], [place] Drive [address] [facility] [address] [place] [phone] Allergies Active Allergy Reactions Severity Noted Date [...] Comments Blood Pressure 125/73 12/21/2019 4:00 PM MONORAIL CHARGER OPERATOR Pulse 79 12/21/2019 4:00 PM MONORAIL CHARGER OPERATOR Temperature 36.9 C (98.4 F) 12/21/2019 4:00 PM MONORAIL CHARGER OPERATOR Respiratory Rate - - Oxygen Saturation 95% 12/21/2019 4:00 PM MONORAIL CHARGER OPERATOR Inhaled Oxygen Concentration - - Weight 67.1 kg (148 lb) 12/21/2019 4:00 PM MONORAIL CHARGER OPERATOR Height 152.4 cm (5') 12/21/2019 4:00 PM MONORAIL CHARGER OPERATOR Body Mass Index 28.9 12/21/2019 4:00 PM MONORAIL CHARGER OPERATOR documented in this encounter Patient Instructions Patient InstructionsOlga Vasques FNP - 12/21/2019 4:00 PM MONORAIL CHARGER OPERATOR - home care: Rest Increase clear fluid [...] any new, worsening, persistent, or concerning symptoms. RAIL CHARGER OPERATOR documented in this encounter Progress Notes Olga [...] past month. She was seen in the [facility] ER in the past month for these symptoms, and then followed up with cardiology(Dr. Orozco), rheumatology (Dr. Chávez), and pulmonology (Dr. Garcia- [facility]) regarding these symptoms. Her senior ecologist started her on prednisone 20mg daily x [...] file Gets together: Not on file Attends evangelical service: Not on file Active member of [...] Treatment Name Type Priority Associated Diagnoses Date/Time CBC WITH DIFF LAB Routine Intermittent fever 12/21/2019 5:11 PM MONORAIL CHARGER OPERATOR New daily persistent headache Fatigue, unspecified type CBC WITH DIFFERENTIAL LAB Routine Intermittent fever 12/21/2019 5:11 PM MONORAIL CHARGER OPERATOR New daily persistent headache Fatigue, unspecified type [...] Type / Group Dates AETNA - AETNA [id number] 2015-Nevaeh [place] Medicare Adv MANAGED MEDICARE ADV nt [id number] [place] [address] documented as of this encounter"
--- OUTSIDE RECORDS SUMMARY | 2020-01-02 17:03 | XMS REPORT | Summary of Care ---
:1945 Author Organization [facility] Address [address] [place] [address] Care Team Providers Name Role Phone Sergio Berrios MD Primary Care Provider Reason for Visit Reason Comments Fever Headache Shortness of Breath Auth/Cert Status Reason Specialty Diagnoses / Procedures Referred By Contact Referred To Contact Phlebotomy Diagnoses Intermittent fever Adc Pob Lab Draw Procedures CBC/DIFFERENTIAL (NO PLATELET)- Professional Office Building [address] [facility] , [address] [place] [address] Encounter Details Date Type Department Care Team Description 12/21/2019 Office Visit [facility] Family Layo, Olga, Intermittent fever (Primary Dx); Medicine - [place] PROPULSION GENERATOR REPAIRER New daily persistent headache; [address] Fatigue, unspecified type [place], [place] Drive [address] [facility] [address] [place] [phone] Allergies Active Allergy Reactions Severity Noted Date [...] Comments Blood Pressure 125/73 12/21/2019 4:00 PM FRUIT LOADER MACHINE OPERATOR Pulse 79 12/21/2019 4:00 PM FRUIT LOADER MACHINE OPERATOR Temperature 36.9 C (98.4 F) 12/21/2019 4:00 PM FRUIT LOADER MACHINE OPERATOR Respiratory Rate - - Oxygen Saturation 95% 12/21/2019 4:00 PM FRUIT LOADER MACHINE OPERATOR Inhaled Oxygen Concentration - - Weight 67.1 kg (148 lb) 12/21/2019 4:00 PM FRUIT LOADER MACHINE OPERATOR Height 152.4 cm (5') 12/21/2019 4:00 PM FRUIT LOADER MACHINE OPERATOR Body Mass Index 28.9 12/21/2019 4:00 PM FRUIT LOADER MACHINE OPERATOR documented in this encounter Patient Instructions Patient InstructionsOlga Vasques FNP - 12/21/2019 4:00 PM FRUIT LOADER MACHINE OPERATOR - home care: Rest Increase clear [...] any new, worsening, persistent, or concerning symptoms. T LOADER MACHINE OPERATOR documented in this encounter Progress Notes [...] past month. She was seen in the [facility] ER in the past month for these symptoms, and then followed up with cardiology(Dr. Orozco), rheumatology (Dr. Chávez), and pulmonology (Dr. Garcia- [facility]) regarding these symptoms. Her acid cutter started her on prednisone 20mg daily x [...] file Gets together: Not on file Attends jew service: Not on file Active member of [...] LAB Routine Intermittent fever 12/21/2019 5:11 PM FRUIT LOADER MACHINE OPERATOR New daily persistent headache Fatigue, unspecified type CBC WITH DIFFERENTIAL LAB Routine Intermittent fever 12/21/2019 5:11 PM FRUIT LOADER MACHINE OPERATOR New daily persistent headache Fatigue, unspecified [...] Type / Group Dates AETNA - AETNA [id number] 2015-Nevaeh [place] Medicare Adv MANAGED MEDICARE ADV nt [id number] [place] [address] documented as of this encounter"
--- OUTSIDE RECORDS SUMMARY | 2020-01-02 17:03 | XMS REPORT | Summary of Care ---
:1945 Author Organization [facility] Address [address] [place] [address] Care Team Providers Name Role Phone Sergio Berrios MD Primary Care Provider Reason for Visit Reason Comments Fever Headache Shortness of Breath Auth/Cert Status Reason Specialty Diagnoses / Procedures Referred By Contact Referred To Contact Phlebotomy Diagnoses Intermittent fever Adc Pob Lab Draw Procedures CBC/DIFFERENTIAL (NO PLATELET)- Professional Office Building [address] [facility] , [address] [place] [address] Encounter Details Date Type Department Care Team Description 12/21/2019 Office Visit [facility] Family Layo, Olga, Intermittent fever (Primary Dx); Medicine - [place] TOUR ACTOR New daily persistent headache; [address] Fatigue, unspecified type [place], [place] Drive [address] [facility] [address] [place] [phone] Allergies Active Allergy Reactions Severity Noted Date [...] Comments Blood Pressure 125/73 12/21/2019 4:00 PM DIAGNOSTIC SALES SPECIALIST Pulse 79 12/21/2019 4:00 PM DIAGNOSTIC SALES SPECIALIST Temperature 36.9 C (98.4 F) 12/21/2019 4:00 PM DIAGNOSTIC SALES SPECIALIST Respiratory Rate - - Oxygen Saturation 95% 12/21/2019 4:00 PM DIAGNOSTIC SALES SPECIALIST Inhaled Oxygen Concentration - - Weight 67.1 kg (148 lb) 12/21/2019 4:00 PM DIAGNOSTIC SALES SPECIALIST Height 152.4 cm (5') 12/21/2019 4:00 PM DIAGNOSTIC SALES SPECIALIST Body Mass Index 28.9 12/21/2019 4:00 PM DIAGNOSTIC SALES SPECIALIST documented in this encounter Patient Instructions Patient InstructionsOlga Vasques FNP - 12/21/2019 4:00 PM DIAGNOSTIC SALES SPECIALIST - home care: Rest Increase clear fluid [...] any new, worsening, persistent, or concerning symptoms. NOSTIC SALES SPECIALIST documented in this encounter Progress Notes Olga [...] past month. She was seen in the [facility] ER in the past month for these symptoms, and then followed up with cardiology(Dr. Orozco), rheumatology (Dr. Chávez), and pulmonology (Dr. Garcia- [facility]) regarding these symptoms. Her service delivery analyst started her on prednisone 20mg daily x [...] file Gets together: Not on file Attends jehovah's witness service: Not on file Active member of [...] LAB Routine Intermittent fever 12/21/2019 5:11 PM DIAGNOSTIC SALES SPECIALIST New daily persistent headache Fatigue, unspecified type CBC WITH DIFFERENTIAL LAB Routine Intermittent fever 12/21/2019 5:11 PM DIAGNOSTIC SALES SPECIALIST New daily persistent headache Fatigue, unspecified type [...] Type / Group Dates AETNA - AETNA [id number] 2015-Nevaeh [place] Medicare Adv MANAGED MEDICARE ADV nt [id number] [place] [address] documented as of this encounter"
--- OUTSIDE RECORDS SUMMARY | 2020-01-02 17:04 | XMS REPORT | Summary of Care ---
:1945 Author Organization [facility] Address [address] [place] [address] Care Team Providers Name Role Phone Sergio Berrios MD Primary Care Provider Reason for Visit Reason Comments Fever Headache Shortness of Breath Auth/Cert Status Reason Specialty Diagnoses / Procedures Referred By Contact Referred To Contact Phlebotomy Diagnoses Intermittent fever Adc Pob Lab Draw Procedures CBC/DIFFERENTIAL (NO PLATELET)- Professional Office Building [address] [facility] , [address] [place] [address] Encounter Details Date Type Department Care Team Description 12/21/2019 Office Visit [facility] Family Layo, Olga, Intermittent fever (Primary Dx); Medicine - [place] GYMNASTICS COACH New daily persistent headache; [address] Fatigue, unspecified type [place], [place] [address] [facility] [address] [place] [phone] Allergies Active Allergy Reactions Severity Noted Date [...] Comments Blood Pressure 125/73 12/21/2019 4:00 PM ROUTE PROCESS ADMINISTRATOR Pulse 79 12/21/2019 4:00 PM ROUTE PROCESS ADMINISTRATOR Temperature 36.9 C (98.4 F) 12/21/2019 4:00 PM ROUTE PROCESS ADMINISTRATOR Respiratory Rate - - Oxygen Saturation 95% 12/21/2019 4:00 PM ROUTE PROCESS ADMINISTRATOR Inhaled Oxygen Concentration - - Weight 67.1 kg (148 lb) 12/21/2019 4:00 PM ROUTE PROCESS ADMINISTRATOR Height 152.4 cm (5') 12/21/2019 4:00 PM ROUTE PROCESS ADMINISTRATOR Body Mass Index 28.9 12/21/2019 4:00 PM ROUTE PROCESS ADMINISTRATOR documented in this encounter Patient Instructions Patient InstructionsOlga Vasques FNP - 12/21/2019 4:00 PM ROUTE PROCESS ADMINISTRATOR - home care: Rest Increase clear fluid [...] any new, worsening, persistent, or concerning symptoms. E PROCESS ADMINISTRATOR documented in this encounter Progress Notes Olga [...] past month. She was seen in the [facility] ER in the past month for these symptoms, and then followed up with cardiology(Dr. Orozco), rheumatology (Dr. Chávez), and pulmonology (Dr. Garcia- [facility]) regarding these symptoms. Her healthcare facility administrator started her on prednisone 20mg daily x [...] file Gets together: Not on file Attends confucianism service: Not on file Active member of [...] LAB Routine Intermittent fever 12/21/2019 5:11 PM ROUTE PROCESS ADMINISTRATOR New daily persistent headache Fatigue, unspecified type CBC WITH DIFFERENTIAL LAB Routine Intermittent fever 12/21/2019 5:11 PM ROUTE PROCESS ADMINISTRATOR New daily persistent headache Fatigue, unspecified type [...] Type / Group Dates AETNA - AETNA [id number] 2015-Nevaeh [place] Medicare Adv MANAGED MEDICARE ADV nt [id number] [place] [address] documented as of this encounter"
--- OUTSIDE RECORDS SUMMARY | 2020-01-02 17:04 | XMS REPORT | Summary of Care ---
:1945 Author Organization [facility] Address [address] [place] [address] Care Team Providers Name Role Phone Sergio Berrios MD Primary Care Provider Reason for Referral (Routine) Status Reason Specialty Diagnoses / Referred By Referred To Procedures Contact Contact New Request Patient Cardiology Diagnoses Shortness of breath Layo, Requested Procedures CONSULT/REFERRAL CARDIOLOGY Olga, ASSEMBLER BILLIARD TABLE Specific [address] [facility] [address] [place] [address] Reason for Visit Reason Comments ER F/U 12/22/2019 LAB WORK Encounter Details Date Type Department Care Team Description 12/28/2019 Office Visit [facility] Family Layo, Olga, Shortness of breath (Primary Dx); [facility] ASSEMBLER BILLIARD TABLE Drug-induced systemic lupus erythematosus, unspecified organ involvement status [address] [place], [place] Drive [address] [facility] [address] [place] [address] Allergies Active Allergy Reactions Severity Noted Date Comments Levofloxacin Unknown - See comments 01/11/2016 Penicillin Unknown - See comments 01/11/2016 Sulfa (Sulfonamide Antibiotics) Unknown - See comments 01/11/2016 Sulfur Dioxide Hives High 11/19/2019 documented as of this encounter (statuses as of 12/28/2019) Medications Medication Sig Dispensed Refills Start Date [...] as of this encounter (statuses as of 12/28/2019) Active Problems Problem Noted Date Leukopenia, unspecified type 10/14/2017 Lupus 01/19/2016 Arthritis 01/19/2016 Essential hypertension 01/19/2016 Hyperlipidemia with target low density lipoprotein (LDL) cholesterol less 08/2016 than 100 mg/dL documented as of this encounter (statuses as of 12/28/2019) Immunizations Name Administration Dates Next Due Influenza [...] Sign Reading Time Taken Comments Blood Pressure 99/62 12/28/2019 12:26 PM LAST MODEL DEPARTMENT SUPERVISOR Pulse 105 12/28/2019 12:55 PM LAST MODEL DEPARTMENT SUPERVISOR Temperature 37 C (98.6 F) 12/28/2019 12:26 PM LAST MODEL DEPARTMENT SUPERVISOR Respiratory Rate - - Oxygen Saturation 93% 12/28/2019 12:55 PM LAST MODEL DEPARTMENT SUPERVISOR Inhaled Oxygen Concentration - - Weight 66.2 kg (146 lb) 12/28/2019 12:26 PM LAST MODEL DEPARTMENT SUPERVISOR Height - - Body Mass Index 28.51 12/22/2019 10:07 AM LAST MODEL DEPARTMENT SUPERVISOR documented in this encounter Progress Notes Carito Hall - 12/28/2019 12:40 PM CST Venipuncture collection performed by clean technique on the left anticubitus. Total of 1 attempts were made. Slight pressure and a bandage/dressing were applied to the site(s). The patient experienced no complications. The following specimens were processed according to instructions and sent to [facility] laboratories per lab order on 12/28/19: LT BLUE SST RED LAV PPT DK GREEN (LiHep) DK GREEN (SodH) ROPER DK BLUE (K2) DK BLUE (S) ACD Blood Culture NIPT/NTD lga Vasques FNP - 12/28/2019 12:40 PM CST Cc: Chief Complaint Patient presents with ER F/U 12/22/2019 Kusum Wynn OlegLionel is a 74 year old female that presents to the clinic with her daughter via wheelchair to follow up from ER visit on 12/22/2019 for low white count. Since being discharged from the ER she been fatigued, short of breath, and running fever up to 101.6F. She last took Advil this morning for the fever. Her and her daughter report that when she uses any exertion (walking from bedroom to restroom or bedroom to living room), she becomes very short of breath , O2 stat drops, she experiences palpations, and becomes very fatigued. She has been using her 's home O2 and wheelchair due to O2 saturations dropping down to 79% with exertion. She has a follow up appointment with rheumatologiston Saturday and sleep study scheduled next Saturday with licensed pharmacist. Her department head college or university is Dr. Orozco and she is unsure when her next follow up is with him. Fatigue The current episode started more than 1 month ago. The problem occurs constantly. The problem has been gradually worsening. Associated symptoms include fatigue and a fever. Pertinent negatives include no arthralgias, chest pain, coughing, myalgias or rash. The symptoms are aggravated by exertion. Allergies Kusum is allergic to sulfur dioxide; [...] MG) BY ORAL ROUTE ONCE DAILY 2 ASCORBATE CALCIUM (VITAMIN C ORAL) Take by [...] Past Medical History: Diagnosis Date Depression Diverticulosis Esophageal reflux Fatty liver 2013 Hyperlipidemia Hypertension IBS (irritable bowel syndrome) Lupus [...] Last attempt to quit: 11/20/1999 Years since quittin.1 Smokeless tobacco: Never Used Substance and Sexual Activity Alcohol use: No Drug use: No Sexual activity: Not on file Lifestyle Physical activity: Days per week: Not on file Minutes per session: Not on file Stress: Not on file Relationships Social connections: Talks on phone: Not on file Gets together: Not on file Attends jainism service: Not on file Active member of [...] Grandmother Review of Systems Constitutional: Positive for fatigue and fever. Respiratory: Positive for shortness of breath. Negative for cough. Cardiovascular: Positive for palpitations. Negative for chest pain and leg swelling. Musculoskeletal: Negative for arthralgias and myalgias. Skin: Negative for rash. Psychiatric/Behavioral: Negative for agitation and confusion. CBC withoutdiff WHITE BLOOD CELL COUNT-Q (Thousand/uL) Date Value 01/19/2016 6.5 WBC Date Value 12/22/2019 3.67 10*3/L (L) 12/21/2019 1.89 10*3/L (LL) 11/29/2019 3.35 10*3/L (L) 11/20/2019 4.60 10*3/L 10/11/2017 3.90 10*3/uL (L) HGB (g/dL) Date Value 12/22/2019 11.6 12/21/2019 12.5 11/29/2019 12.8 11/20/2019 12.8 10/11/2017 13.6 HEMOGLOBIN-Q (g/dL) Date Value 01/19/2016 12.8 HCT (%) Date Value 12/22/2019 35.4 (L) 12/21/2019 39.5 11/29/2019 39.7 11/20/2019 39.9 10/11/2017 39.6 HEMATOCRIT-Q (%) Date Value 01/19/2016 40.0 MCV (fL) Date Value 12/22/2019 90.5 12/21/2019 92.9 11/29/2019 91.9 11/20/2019 94.1 10/11/2017 96.0 MCV-Q (fL) Date Value 01/19/2016 97.9 PLATELET COUNT-Q (Thousand/uL) Date Value 01/19/2016 270 PLT Date Value 12/22/2019 203 10*3/L 12/21/2019 251 10*3/L 11/29/2019 209 10*3/L 11/20/2019 282 10*3/L 10/11/2017 240 10*3/uL EXAM: XR CHEST 1 VW HISTORY: dyspnea COMPARISON: None. FINDINGS: The heart is slightly enlarged to the left, not different than noted previously. The left ventricle is enlarged. The lungs are satisfactorily expanded and clear. NT-proBNP (pg/mL) Date Value 11/29/2019 128 (H) Vital Signs BP 99/62 | Pulse 86 | Temp 37 C (98.6 F) (Tympanic) | Wt 146 lb (66.2 kg ) | SpO2 99% | BMI 28.51 kg/m Physical Exam Constitutional: She is oriented to person, place, and time. She appears well- developed and well-nourished. No distress. HENT: Head: Normocephalic and atraumatic. Eyes: Conjunctivae are normal. Cardiovascular: Normal rate and intact distal pulses. Pulmonary/Chest: Effort normal. Neurological: She is alert and oriented to person, place, and time. Skin: Skin is warm and dry. No rash noted. Psychiatric: She has a normal mood and affect. Her behavior is normal. Thought content normal. Nursing note and vitals reviewed. Assessment/Plan 1. Shortness of breath - discussed patient's case with Dr. Berrios and he is in agreement with plan. - advised patient and her daughter to follow up with buffing and polishing wheel repairer as schedule next week to discussthese symptoms further. - N-TERMINAL PRO-BNP - CONSULT/REFERRAL CARDIOLOGY: Dr. Rider in [place]. - patient is requesting a referral to a new department head college or university. - C-REACTIVE PROTEIN; Future - CBC WITH DIFF - C3 COMPLEMENT; Future - C4 COMPLEMENT; Future - ANTI-DOUBLE STRANDED DNA; Future - COMP. METABOLIC PANEL (41036); Future - CBC WITH DIFFERENTIAL - C-REACTIVE PROTEIN - C3 COMPLEMENT - C4 COMPLEMENT - ANTI-DOUBLE STRANDED DNA - COMP. METABOLIC PANEL (70784) - ambulation test without nasal canula O2, vitals signs: O2 dropped to 93% and HR increased to 105bpm. 2. Drug-induced systemic lupus erythematosus, unspecified organ involvement status - C-REACTIVE PROTEIN; Future - CBC WITH DIFF - C3 COMPLEMENT; Future - C4 COMPLEMENT; Future - ANTI-DOUBLE STRANDED DNA; Future - COMP. METABOLIC PANEL (17028); Future - CBC WITH DIFFERENTIAL - C-REACTIVE PROTEIN - C3 COMPLEMENT - C4 COMPLEMENT - ANTI-DOUBLE STRANDED DNA - COMP. METABOLIC PANEL ([id number]) Plan of care, desired health behaviors, goals, and medication discussed with patient. Education resources provided and reviewed with AVS. Patient/guardian/family verbalized understanding & agrees to plan of care. This visit did not involve counseling and coordination that comprised more than 50% of the visit time. Barriers to care: none. Ability to manage care: well. Olga Vasques APRN, FNP-C 12/28/2019 1:07 PM documented in this encounter Plan of Treatment Name Type Priority Associated Diagnoses Order Schedule N-TERMINAL PRO-BNP LAB Routine Shortness of breath Ordered: 12/28/2019 C-REACTIVE PROTEIN LAB Routine Shortness of breath Expected: 12/28/2019, Drug-induced systemic Expires: 12/28/2020 lupus erythematosus, unspecified organ involvement status CBC WITH DIFF LAB Routine Shortness of breath Ordered: 12/28/2019 Drug-induced systemic lupus erythematosus, unspecified organ involvement status C3 COMPLEMENT LAB Routine Shortness of breath Expected: 12/28/2019, Drug-induced systemic Expires: 12/28/2020 lupus erythematosus, unspecified organ involvement status C4 COMPLEMENT LAB Routine Shortness of breath Expected: 12/28/2019, Drug-induced systemic Expires: 12/28/2020 lupus erythematosus, unspecified organ involvement status ANTI-DOUBLE STRANDED DNA LAB Routine Shortness of breath Expected: 12/28/2019, Drug-induced systemic Expires: 12/28/2020 lupus erythematosus, unspecified organ involvement status COMP. METABOLIC PANEL LAB Routine Shortness of breath Expected: 12/28/2019, ([id number]) Drug-induced systemic Expires: 12/28/2020 lupus erythematosus, unspecified organ involvement status CBC WITH DIFFERENTIAL LAB Routine Shortness of breath Ordered: 12/28/2019 Drug-induced systemic lupus erythematosus, unspecified organ involvement status Health Maintenance Due Date Last Done Comments [...] filedocumented in this encounter Visit Diagnoses Diagnosis Shortness of breath - Primary Drug-induced systemic lupus erythematosus, unspecified organ involvement status documented in this encounter Insurance Payer Benefit Plan Subscriber ID Effective Phone Address Type / Group Dates AETNA - AETNA [id number] 2015-[place] [address] Medicare Adv MANAGED MEDICARE ADV nt [id number] [place] [address] documented as of this encounter"
--- OUTSIDE RECORDS SUMMARY | 2020-01-02 17:04 | XMS REPORT | Summary of Care ---
:1945 Author Organization [facility] Address [address] [place] [address] Care Team Providers Name Role Phone Sergio Berrios MD Primary Care Provider Reason for Referral (Routine) Status Reason Specialty Diagnoses / Referred By Referred To Procedures Contact Contact New Request Patient Cardiology Diagnoses Shortness of breath Layo, Requested Procedures CONSULT/REFERRAL CARDIOLOGY Olga, SPECIAL OFFICER Specific [address] [facility] [address] [place] [address] Reason for Visit Reason Comments ER F/U 12/22/2019 LAB WORK Encounter Details Date Type Department Care Team Description 12/28/2019 Office Visit [facility] Family Layo, Olga, Shortness of breath (Primary Dx); [facility] SPECIAL OFFICER Drug-induced systemic lupus erythematosus, unspecified organ involvement status [address] [place], [place] [address] [facility] [address] [place] [address] Allergies Active Allergy Reactions Severity [...] Comments Blood Pressure 99/62 12/28/2019 12:26 PM LOG MANAGER Pulse 105 12/28/2019 12:55 PM LOG MANAGER Temperature 37 C (98.6 F) 12/28/2019 12:26 PM LOG MANAGER Respiratory Rate - - Oxygen Saturation 93% 12/28/2019 12:55 PM LOG MANAGER Inhaled Oxygen Concentration - - Weight 66.2 kg (146 lb) 12/28/2019 12:26 PM LOG MANAGER Height - - Body Mass Index 28.51 12/22/2019 10:07 AM LOG MANAGER documented in this encounter Progress Notes Carito Hall - 12/28/2019 12:40 PM CST Venipuncture collection performed by clean technique on the left anticubitus. Total of 1 attempts were made. Slight pressure and a bandage/dressing were applied to the site(s). The patient experienced no complications. The following specimens were processed according to instructions and sent to [facility] laboratories per lab order on 12/28/19: LT [...] and sleep study scheduled next Saturday with tmd teacher. Her supervisor furnace room is Dr. Orozco and she is unsure [...] file Gets together: Not on file Attends bahai service: Not on file Active member of [...] and her daughter to follow up with smoking pipe maker as schedule next week to discussthese symptoms further. - N-TERMINAL PRO-BNP - CONSULT/REFERRAL CARDIOLOGY: Dr. Rider in [place]. - patient is requesting a referral to a new supervisor furnace room. - C-REACTIVE PROTEIN; Future - CBC WITH DIFF - C3 COMPLEMENT; Future - C4 COMPLEMENT; Future - ANTI-DOUBLE STRANDED DNA; Future - COMP. METABOLIC PANEL (65300); Future - CBC WITH DIFFERENTIAL - C-REACTIVE PROTEIN - C3 COMPLEMENT - C4 COMPLEMENT - ANTI-DOUBLE STRANDED DNA - COMP. METABOLIC PANEL ([id number]) - ambulation test without nasal canula O2, vitals signs: O2 dropped to 93% and HR increased to 105bpm. 2. Drug-induced systemic lupus erythematosus, unspecified organ involvement status - C-REACTIVE PROTEIN; Future - CBC WITH DIFF - C3 COMPLEMENT; Future - C4 COMPLEMENT; Future - ANTI-DOUBLE STRANDED DNA; Future - COMP. METABOLIC PANEL ([id number]); Future - CBC WITH DIFFERENTIAL - C-REACTIVE PROTEIN - C3 COMPLEMENT - C4 COMPLEMENT - ANTI-DOUBLE STRANDED DNA - COMP. METABOLIC PANEL ([id number]) Plan of care, desired health behaviors, goals, [...] LAB Routine Shortness of breath Expected: 12/28/2019, (60905) Drug-induced systemic Expires: 12/28/2020 lupus erythematosus, unspecified [...] Type / Group Dates AETNA - AETNA [id number] 2015-Prese [address] BOX Medicare Adv MANAGED MEDICARE ADV nt [id number] [place] [address] documented as of this encounter"
--- OUTSIDE RECORDS SUMMARY | 2020-01-02 17:04 | XMS REPORT | Summary of Care ---
:1945 Author Organization [facility] Address [address] [place] [address] Care Team Providers Name Role Phone Sergio Berrios MD Primary Care Provider Reason for Visit Reason Comments Fever Headache Shortness of Breath Auth/Cert Status Reason Specialty Diagnoses / Procedures Referred By Contact Referred To Contact Phlebotomy Diagnoses Intermittent fever Adc Pob Lab Draw Procedures CBC/DIFFERENTIAL (NO PLATELET)- Professional Office Building [address] [facility] , [address] [place] [address] Encounter Details Date Type Department Care Team Description 12/21/2019 Office Visit [facility] Family Layo, Olga, Intermittent fever (Primary Dx); 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 Fatigue, unspecified type [place] [address] [facility] [address] [place] [id number] Allergies Active Allergy Reactions Severity Noted Date [...] Comments Blood Pressure 125/73 12/21/2019 4:00 PM GLASS BLOCK BENDER Pulse 79 12/21/2019 4:00 PM GLASS BLOCK BENDER Temperature 36.9 C (98.4 F) 12/21/2019 4:00 PM GLASS BLOCK BENDER Respiratory Rate - - Oxygen Saturation 95% 12/21/2019 4:00 PM GLASS BLOCK BENDER Inhaled Oxygen Concentration - - Weight 67.1 kg (148 lb) 12/21/2019 4:00 PM GLASS BLOCK BENDER Height 152.4 cm (5') 12/21/2019 4:00 PM GLASS BLOCK BENDER Body Mass Index 28.9 12/21/2019 4:00 PM GLASS BLOCK BENDER documented in this encounter Patient Instructions Patient InstructionsOlga Vasques FNP - 12/21/2019 4:00 PM GLASS BLOCK BENDER - home care: Rest Increase clear fluid [...] any new, worsening, persistent, or concerning symptoms. S BLOCK BENDER documented in this encounter Progress Notes Olga [...] month. She was seen in the [facility] ER in the past month for these symptoms, and then followed up with cardiology(Dr. Orozco), rheumatology (Dr. Chávez), and pulmonology (Dr. Garcia- [facility]) regarding these symptoms. Her director immunology started her on prednisone 20mg daily x [...] file Gets together: Not on file Attends judaism service: Not on file Active member of [...] LAB Routine Intermittent fever 12/21/2019 5:11 PM GLASS BLOCK BENDER New daily persistent headache Fatigue, unspecified type CBC WITH DIFFERENTIAL LAB Routine Intermittent fever 12/21/2019 5:11 PM GLASS BLOCK BENDER New daily persistent headache Fatigue, unspecified type [...] Type / Group Dates AETNA - AETNA [id number] 2015-Nevaeh ALEX[place]ER Medicare Adv MANAGED MEDICARE ADV nt [id number] [place] [address] documented as of this encounter"
--- OUTSIDE RECORDS SUMMARY | 2020-01-02 17:05 | XMS REPORT | Summary of Care ---
:1945 Author Organization [facility] Address [address] [place] [address] Care Team Providers Name Role Phone Sergio Berrios MD Primary Care Provider Reason for Referral (Routine) Status Reason Specialty Diagnoses / Referred By Referred To Procedures Contact Contact New Request Hematology Diagnoses Leukopenia, unspecified type Thrombocytopenia Layo, Procedures CONSULT/REFERRAL HEMATOLOGY WENDY Espinoza [address] [facility] [address] [place] [address] (Routine) Status Reason Specialty Diagnoses / Referred By Referred To Procedures Contact Contact New Request Patient Cardiology Diagnoses Shortness of breath Layo, Syst, Requested Procedures CONSULT/REFERRAL CARDIOLOGY WENDY Espinoza Referring/Pcp Specific [address] [address] Reason for Visit Reason Comments ER F/U 12/22/2019 LAB WORK Encounter Details Date Type Department Care Team Description 12/28/2019 Office Visit [facility] Family Layo, Shortness of breath ( Primary Dx); Medicine - WENDY Perez Drug-induced systemic lupus erythematosus, unspecified organ involvement status; [address] Leukopenia, unspecified type; Drive [address] [place] [address] [place], [place] [phone] [address] [phone] Allergies Active Allergy Reactions Severity Noted Date [...] Comments Blood Pressure 99/62 12/28/2019 12:26 PM BEHAVIOR SUPPORT SPECIALIST Pulse 105 12/28/2019 12:55 PM BEHAVIOR SUPPORT SPECIALIST Temperature 37 C (98.6 F) 12/28/2019 12:26 PM BEHAVIOR SUPPORT SPECIALIST Respiratory Rate - - Oxygen Saturation 93% 12/28/2019 12:55 PM BEHAVIOR SUPPORT SPECIALIST Inhaled Oxygen Concentration - - Weight 66.2 kg (146 lb) 12/28/2019 12:26 PM BEHAVIOR SUPPORT SPECIALIST Height - - Body Mass Index 28.51 12/22/2019 10:07 AM BEHAVIOR SUPPORT SPECIALIST documented in this encounter Progress Notes Carito Hall - 12/28/2019 12:40 PM CST Venipuncture collection performed by clean technique on the left anticubitus. Total of 1 attempts were made. Slight pressure and a bandage/dressing were applied to the site(s). The patient experienced no complications. The following specimens were processed according to instructions and sent to [facility] laboratories per lab order on 12/28/19: LT BLUE SST RED LAV PPT DK GREEN (LiHep) DK GREEN (SodH) ROPER DK BLUE (K2) DK BLUE (S) ACD Blood Culture NIPT/NTD Olga Mitchell FNP - 12/28/2019 12:40 PM CST Cc: Chief Complaint Patient presents with ER F/U 12/22/2019 Kusum Lauren is a 74 year old [...] and sleep study scheduled next Saturday with electrician's assistant. Her features reporter is Dr. Orozco and she is unsure [...] Date Depression Diverticulosis Esophageal reflux Fatty liver 2012 Hyperlipidemia Hypertension IBS (irritable [...] file Gets together: Not on file Attends amish service: Not on file Active member of [...] and her daughter to follow up with cw operator as schedule next week to discussthese symptoms further. - N-TERMINAL PRO-BNP - CONSULT/REFERRAL CARDIOLOGY: Dr. Rider in [place]. - patient is requesting a referral to a new features reporter. - C-REACTIVE PROTEIN; Future - CBC WITH DIFF - C3 COMPLEMENT; Future - C4 COMPLEMENT; Future - ANTI-DOUBLE STRANDED DNA; Future - COMP. METABOLIC PANEL ([id number]); Future - CBC WITH DIFFERENTIAL - C-REACTIVE PROTEIN - C3 COMPLEMENT - C4 COMPLEMENT - ANTI-DOUBLE STRANDED DNA - COMP. METABOLIC PANEL ([id number]) - ambulation test without nasal canula O2, vitals signs: O2 dropped to 93% and HR increased to 105bpm. 2. Drug-induced systemic lupus erythematosus, unspecified organ involvement status - C-REACTIVE PROTEIN; Future - CBC WITH DIFF - C3 COMPLEMENT; Future - C4 COMPLEMENT; Future - ANTI-DOUBLE STRANDED DNA; Future - COMP. METABOLIC PANEL (77133); Future - CBC WITH DIFFERENTIAL - C-REACTIVE PROTEIN - C3 COMPLEMENT - C4 COMPLEMENT - ANTI-DOUBLE STRANDED DNA - COMP. METABOLIC PANEL ([id number]) Plan of care, desired health behaviors, goals, [...] Treatment Name Type Priority Associated Diagnoses Date/Time C-REACTIVE PROTEIN LAB Routine Shortness of breath 12/28/2019 1:03 PM Drug-induced systemic BEHAVIOR SUPPORT SPECIALIST lupus erythematosus, unspecified organ involvement status C3 COMPLEMENT LAB Routine Shortness of breath 12/28/2019 1:03 PM Drug-induced systemic BEHAVIOR SUPPORT SPECIALIST lupus erythematosus, unspecified organ involvement status C4 COMPLEMENT LAB Routine Shortness of breath 12/28/2019 1:03 PM Drug-induced systemic BEHAVIOR SUPPORT SPECIALIST lupus erythematosus, unspecified organ involvement status ANTI-DOUBLE STRANDED DNA LAB Routine Shortness of breath 12/28/2019 4:19 PM Drug-induced systemic BEHAVIOR SUPPORT SPECIALIST lupus erythematosus, unspecified organ involvement status Name Type Priority Associated Diagnoses Order Schedule C-REACTIVE PROTEIN LAB Routine Shortness of breath Expected: 12/28/2019, Drug-induced systemic Expires: 12/28/2020 lupus erythematosus, unspecified organ involvement status C3 [...] 12/28/2020 lupus erythematosus, unspecified organ involvement status Health [...] Procedure Name Priority Date/Time Associated Diagnosis Comments COMP. METABOLIC PANEL Routine 12/28/2019 4:19 Shortness of breath Results for this (24249) PM BEHAVIOR SUPPORT SPECIALIST Drug-induced procedure are in systemic lupus the results erythematosus, section. unspecified organ involvement status CBC WITH DIFFERENTIAL Routine 12/28/2019 1:08 Shortness of breath Results for this PM BEHAVIOR SUPPORT SPECIALIST Drug-induced procedure are in systemic lupus the results erythematosus, section. unspecified organ involvement status CBC WITH DIFFERENTIAL Routine 12/28/2019 1:08 Shortness of breath Results for this PM BEHAVIOR SUPPORT SPECIALIST Drug-induced procedure are in systemic lupus the results erythematosus, section. unspecified organ involvement status N-TERMINAL PRO-BNP Routine 12/28/2019 1:03 Shortness of breath Results for this PM BEHAVIOR SUPPORT SPECIALIST procedure are in the results section. documented in this encounter Results COMP. METABOLIC PANEL ([id number]) (12/28/2019 4:19 PM BEHAVIOR SUPPORT SPECIALIST) NA 132 (L) 135 - 145 [facility] mmol/L [facility] K 4.1 3.5 - 5.0 [facility] mmol/L [facility] CL 96 (L) 98 - 108 mmol/L [facility] CO2 TOTAL 25 23 - 31 mmol/L [facility] AGAP 11 2 - 16 [facility] BUN 25 (H) 7 - 23 mg/dL [facility] GLUCOSE 123 (H) 70 - 110 mg/dL [facility] CREATININE 0.90 0.50 - 1.04 [facility] mg/dL [facility] TOTAL BILI 1.0 0.1 - 1.1 mg/dL [facility] CALCIUM 9.4 8.6 - 10.6 [facility] mg/dL HOS[facility]ITAL [facility] T PROTEIN 7.1 6.3 - 8.2 g/dL [facility] ALBUMIN 3.7 3.5 - 5.0 g/dL [facility] ALK PHOS 73 34 - 122 U/L [facility] ALTv 125 (H) 5 - 35 U/L [facility] AST(SGOT) 249 (H) 13 - 40 U/L [facility] eGFR Calculation 61.4 mL/min/1.73m2 [facility] (Non-[facility] Iraqi) eGFR Calculation 74.4 mL/min/1.73m2 [facility] () [facility] Specimen Blood Narrative Performed At Association of Glomerular Filtration Rate (GFR) [facility] and Staging of Kidney Disease* [...] tests). Performing Organization Address City/State/Zipcode Phone Number [facility] CLIA: [id number], [address] [place] [address] CBC WITH DIFFERENTIAL (12/28/2019 1:08 PM BEHAVIOR SUPPORT SPECIALIST) [facility] Signature WBC 2.95 (L) 4.30 - 11.10 [facility] 10*3/L [facility] RBC 4.02 3.93 - 5.25 [facility] 10*6/L [facility] HGB 11.8 11.6 - 15.0 [facility] g/dL [facility] HCT 37.6 35.7 - 45.2 % [facility] MCV 93.5 80.6 - 95.5 fL [facility] MCH 29.4 25.9 - 32.8 pg [facility] MCHC 31.4 (L) 31.6 - 35.1 [facility] g/dL [facility] RDW-SD 50.2 (H) 39.0 - 49.9 fL [facility] RDW-CV 14.6 12.0 - 15.5 % [facility] PLT 153 (L) 166 - 358 [facility] 10*3/L HOSPITAL [facility] MPV 12.0 9.5 - 12.9 fL [facility] NRBC/100 WBC 0.0 0.0 - 10.0 /100 [facility] WBCs [facility] NRBC x10^3 <0.01 10*3/L [facility] GRAN MAT (NEUT) % 80.4 % [facility] IMM GRAN % 1.70 % [facility] LYMPH % 14.9 % [facility] MONO % 2.4 % [facility] EOS % 0.3 % [facility] BASO % 0.3 % [facility] GRAN MAT x10^3(ANC) 2.37 1.88 - 7.09 [facility] 10*3/uL [facility] IMM GRAN x10^3 0.05 0.00 - 0.06 [facility] 103/uL [facility] LYMPH x10^3 0.44 (L) 1.32 - 3.29 [facility] 10*3/uL [facility] MONO x10^3 0.07 (L) 0.33 - 0.92 [facility] 10*3/uL [facility] EOS x10^3 <0.03 (L) 0.03 - 0.39 [facility] 10*3/uL [facility] BASO x10^3 <0.03 0.01 - 0.[address]/uL [facility] Specimen Blood - ARM, LEFT Performing Organization Address City/[facility]/Zipcode Phone Number [facility] CLIA: [id number], [address] [place] [id number] [address] N-TERMINAL PRO-BNP (12/28/2019 1:03 PM BEHAVIOR SUPPORT SPECIALIST) NT-proBNP 318 (H) <=125 pg/mL [facility] Specimen Blood - ARM, LEFT Narrative Performed At [facility] has been reported to cause a negative [facility] bias, interpret results relative to patient's use of biotin. Performing Organization Address City/[facility] Phone Number [facility] CLIA: [id number], [address] [place] [id number] [place] [address] documented in this encounter Visit Diagnoses Diagnosis Shortness of breath - Primary Drug-induced systemic lupus erythematosus, unspecified organ involvement status Leukopenia, unspecified type Thrombocytopenia Thrombocytopenia, unspecified documented in this encounter Insurance Payer Benefit Plan Subscriber ID Effective Phone Address Type / Group Dates AETNA - AETNA [id number] 2015-Nevaeh H[place] O BOX Medicare Adv MANAGED MEDICARE ADV nt [id number] [place] [address] documented as of this encounter"
--- OUTSIDE RECORDS SUMMARY | 2020-01-02 17:05 | XMS REPORT | Summary of Care ---
:1945 Author Organization [facility] - Health Address [address] [place] [address] Care Team Providers Name Role Phone Sergio Berrios MD Primary Care Provider Encounter Details Date Type Department Care Team Description 12/30/2019 Orders Only [facility] Doctor Unassigned, No [address] [facility] [place] [address] [address] [place] [address] Allergies Active Allergy Reactions Severity Noted Date Comments Levofloxacin Unknown - See comments 01/11/2016 Penicillin Unknown - See comments 01/11/2016 Sulfa (Sulfonamide Antibiotics) Unknown - See comments 01/11/2016 Sulfur Dioxide Hives High 11/19/2019 documented as of this encounter (statuses as of 12/30/2019) Medications Medication Sig Dispensed Refills Start Date [...] as of this encounter (statuses as of 12/30/2019) Active Problems Problem Noted Date Leukopenia, unspecified type 10/14/2017 Lupus 01/19/2016 Arthritis 01/19/2016 Essential hypertension 01/19/2016 Hyperlipidemia with target low density lipoprotein (LDL) cholesterol less 08/2016 than 100 mg/dL documented as of this encounter (statuses as of 12/30/2019) Immunizations Name Administration Dates Next Due Influenza [...] Date/Time Associated Diagnosis Comments EXTERNAL PROVIDER Routine 12/30/2019 12:01 AM MEDICAL RESEARCHER RECORDS documented in this encounter Results Not on filedocumented in this encounter Insurance Payer Benefit Plan Subscriber ID Effective Phone Address Type / Group Dates AETNA - AETNA [id number] 2015-Nevaeh [address] BOX Medicare Adv MANAGED MEDICARE ADV nt [id number] [place] [address] documented as of this encounter
--- OUTSIDE RECORDS SUMMARY | 2020-01-02 17:05 | XMS REPORT | Summary of Care ---
:1945 Author Organization [facility] Address [address] [place] [address] Care Team Providers Name Role Phone Sergio Berrios MD Primary Care Provider Reason for Visit Reason Comments Medical Records please send labs to dry paste supervisor Encounter Details Date Type Department Care Team Description 12/31/2019 Telephone [facility] Family Sergio Berrios MD Medical Records (please [address] [facility] ) [place] [phone] Allergies Active Allergy Reactions Severity Noted Date Comments Levofloxacin Unknown - See comments 01/11/2016 Penicillin Unknown - See comments 01/11/2016 Sulfa (Sulfonamide Antibiotics) Unknown - See comments 01/11/2016 Sulfur Dioxide Hives High 11/19/2019 documented as of this encounter (statuses as of 12/31/2019) Medications Medication Sig Dispensed Refills Start Date [...] as of this encounter (statuses as of 12/31/2019) Active Problems Problem Noted Date Leukopenia, unspecified type 10/14/2017 Lupus 01/19/2016 Arthritis 01/19/2016 Essential hypertension 01/19/2016 Hyperlipidemia with target low density lipoprotein (LDL) cholesterol less 08/2016 than 100 mg/dL documented as of this encounter (statuses as of 12/31/2019) Immunizations Name Administration Dates Next Due Influenza [...] Type / Group Dates AETNA - AETNA [id number] 2015-Nevaeh Horton O CATHERINE Medicare Adv MANAGED MEDICARE ADV nt [id number] [place] [address] documented as of this encounter
--- OUTSIDE RECORDS SUMMARY | 2020-01-02 17:06 | XMS REPORT | Summary of Care ---
:1945 Author Organization [facility] - [facility] Address [address] [place] [address] Care Team Providers Name Role Phone Sergio Berrios MD Primary Care Provider Reason for Referral Radiology Services (STAT) Status Reason Specialty Diagnoses / Referred By Referred To Procedures Contact Contact New Request Diagnostic Diagnoses SOB (shortness of breath) Valencia Colvin Radiology Procedures XR CHEST 1 DIMAS Hollis MD [address] [address] Reason for Visit Reason Comments Shortness of Breath Auth/Cert Status Reason Specialty Diagnoses / Referred By Referred To Procedures Contact Contact [facility] [address] [place] [address] [place] [address] Encounter Details Date Type Department Care Team Description 01/01/2020 Emergency [facility]-Emergency Valencia Colvin, SOB (shortness of breath) (Primary Dx); Department Right-sided chest wall pain; [address] [place] [address] 301 [facility], [facility] [place] [id number] [place], [place] [id number] Allergies Active Allergy Reactions Severity Noted Date Comments Levofloxacin Unknown - See comments 01/11/2016 Penicillin Unknown - See comments 01/11/2016 Sulfa (Sulfonamide Antibiotics) Unknown - See comments 01/11/2016 Sulfur Dioxide Hives High 11/19/2019 documented as of this encounter (statuses as of 01/01/2020) Medications Medication Sig Dispensed Refills Start Date [...] as of this encounter (statuses as of 01/01/2020) Active Problems Problem Noted Date Leukopenia, unspecified type 10/14/2017 Lupus 01/19/2016 Arthritis 01/19/2016 Essential hypertension 01/19/2016 Hyperlipidemia with target low density lipoprotein (LDL) cholesterol less 08/2016 than 100 mg/dL documented as of this encounter (statuses as of 01/01/2020) Immunizations Name Administration Dates Next Due Influenza [...] Sign Reading Time Taken Comments Blood Pressure 118/67 01/01/2020 11:00 AM SILVER PLATER Pulse 91 01/01/2020 11:00 AM SILVER PLATER Temperature 37.1 C (98.7 F) 01/01/2020 8:34 AM SILVER PLATER Respiratory Rate 17 01/01/2020 11:00 AM SILVER PLATER Oxygen Saturation 100% 01/01/2020 11:00 AM SILVER PLATER Inhaled Oxygen Concentration - - Weight 66.7 kg (147 lb) 01/01/2020 8:34 AM SILVER PLATER Height 152.4 cm (5') 01/01/2020 8:34 AM SILVER PLATER Body Mass Index 28.71 01/01/2020 8:34 AM SILVER PLATER documented in this encounter Discharge Instructions Valencia Gilliam MD - 01/01/2020 DIAGNOSIS Diagnoses that have been ruled out: None Diagnoses that are still under consideration: None Final diagnoses: SOB (shortness of breath) Right-sided chest wall pain Chronic dyspnea NO LIFE-THREATENING FINDINGS ON TODAY'S EXAM. PROCEDURES IN THE ER TODAY: Orders Placed This Encounter Procedures XR CHEST 1 VW TROPONIN I aPTT PROTHROMBIN TIME / INR COMP. METABOLIC PANEL (63006) LIPASE, SERUM CBC WITH DIFF CBC WITH DIFFERENTIAL BLOOD CULTURE SCREEN BLOOD CULTURE SCREEN N-TERMINAL PRO-BNP O2 Per Protocol MEDICATIONS ADMINISTERED IN THE ER TODAY AND DISCHARGE MEDICATIONS: Orders Placed This Encounter Medications FENTanyl PF (SUBLIMAZE (PF)) injection 25 mcg ondansetron (ZOFRAN (PF)) injection 4 mg ketorolac (TORADOL) injection 15 mg FOLLOW-UP RECOMMENDATIONS: KEEP YOUR APPOINTMENT WITH DR BURNETTE FOR THE MORNING ALREADY SCHEDULED RETURN TO ER FOR WORSENING OF SYMPTOMS documented in this encounter Plan of Treatment Name Type Priority Associated Diagnoses Date/Time BLOOD CULTURE SCREEN LAB STAT SOB (shortness of breath) 01/01/2020 10:06 AM SILVER PLATER BLOOD CULTURE SCREEN LAB STAT SOB (shortness of breath) 01/01/2020 10:06 AM SILVER PLATER Name Type Priority Associated Diagnoses Order Schedule BLOOD CULTURE SCREEN LAB Routine SOB (shortness of breath) ONCE for 1 Occurrences starting 01/01/2020 until 01/01/2020 BLOOD CULTURE SCREEN LAB Routine SOB (shortness of breath) ONCE for 1 Occurrences starting 01/01/2020 until 01/01/2020 Health Maintenance Due Date Last Done Comments [...] encounter Procedures Procedure Name Priority Date/Time Associated Comments Diagnosis XR CHEST 1 VW STAT 01/01/2020 9:14 SOB (shortness of Results for this AM SILVER PLATER breath) procedure are in the results section. CBC WITH DIFFERENTIAL STAT 01/01/2020 8:53 SOB (shortness of Results for this AM SILVER PLATER breath) procedure are in the results section. N-TERMINAL PRO-BNP STAT Add-On 01/01/2020 8:53 SOB (shortness of Results for this AM SILVER PLATER breath) procedure are in the results section. ACTIVATED PARTIAL STAT 01/01/2020 8:53 SOB (shortness of Results for this THRMPLAS BHARGAV AM SILVER PLATER breath) procedure are in the results section. PROTHROMBIN TIME / STAT 01/01/2020 8:53 SOB (shortness of Results for this INR AM SILVER PLATER breath) procedure are in the results section. CBC WITH DIFFERENTIAL Routine 01/01/2020 8:53 SOB (shortness of Results for this AM SILVER PLATER breath) procedure are in the results section. COMP. METABOLIC PANEL STAT 01/01/2020 8:53 SOB (shortness of Results for this (97372) AM SILVER PLATER breath) procedure are in the results section. TROPONIN I STAT 01/01/2020 8:53 SOB (shortness of Results for this AM SILVER PLATER breath) procedure are in the results section. LIPASE STAT 01/01/2020 8:53 SOB (shortness of Results for this AM SILVER PLATER breath) procedure are in the results section. EKG-12 LEAD STAT 01/01/2020 8:38 AM SILVER PLATER documented in this encounter Results XR CHEST 1 VW (01/01/2020 9:14 AM SILVER PLATER) Specimen Narrative Performed At EXAM: XR CHEST 1 VW PACS/VR/DOSE HISTORY: SOB COMPARISON: None. FINDINGS: The heart is slightly enlarged to the left, probably due to a prominent left ventricle. The aorta is partly calcified. The lungs are only moderately well expanded, but they are clear. Procedure Note [facility], Radiant Results Inft User - 01/01/2020 9:50 AM SILVER PLATER EXAM: XR CHEST 1 VW HISTORY: SOB COMPARISON: None. FINDINGS: The heart is slightly enlarged to the left, probably due to a prominent left ventricle. The aorta is partly calcified. The lungs are only moderately well expanded, but they are clear. Performing Organization Address City/State/Zipcode Phone Number PACS/VR/DOSE N-TERMINAL PRO-BNP (01/01/2020 8:53 AM SILVER PLATER) NT-proBNP 286 (H) <=125 pg/mL [facility] Specimen Blood - VENOUS Narrative Performed At Biotin has been reported to cause a negative [facility] bias, interpret results relative to patient's use of biotin. Performing Organization Address City/[facility]/Zipcode Phone Number [facility] CLIA: [id number], [address] [place] [address] CBC WITH DIFFERENTIAL (01/01/2020 8:53 AM SILVER PLATER) WBC 3.76 (L) 4.30 - 11.10 [facility] 10*3/L H[facility]PITAL [facility] RBC 4.16 3.93 - 5.25 [facility] 10*6/L H[facility]ITAL [facility] HGB 12.3 11.6 - 15.0 [facility] g/dL HOSPITAL [facility] HCT 38.4 35.7 - 45.2 % [facility] MCV 92.3 80.6 - 95.5 fL [facility] MCH 29.6 25.9 - 32.8 pg [facility] MCHC 32.0 31.6 - 35.1 [facility] g/dL HOSPITAL [facility] RDW-SD 49.1 39.0 - 49.9 fL [facility] RDW-CV 14.6 12.0 - 15.5 % [facility] PLT 214 166 - 358 [facility] 10*3/L [facility] MPV 10.1 9.5 - 12.9 fL [facility] NRBC/100 WBC 0.0 0.0 - 10.0 /100 [facility] WBCs [facility] NRBC x10^3 <0.01 10*3/L [facility] GRAN MAT (NEUT) % 64.6 % [facility] IMM GRAN % 0.80 % [facility] LYMPH % 28.5 % [facility] MONO % 5.3 % [facility] EOS % 0.5 % [facility] BASO % 0.3 % [facility] GRAN MAT x10^3(ANC) 2.43 1.88 - 7.09 [facility] 10*3/uL HOSPITAL [facility] IMM GRAN x10^3 0.03 0.00 - 0.06 [facility] 10*3/uL HOSPITAL [facility] LYMPH x10^3 1.07 (L) 1.32 - 3.29 [facility] 10*3/uL HOSPITAL [facility] MONO x10^3 0.20 (L) 0.33 - 0.92 [facility] 10*3/uL HOSPITAL [facility] EOS x10^3 <0.03 (L) 0.03 - 0.39 [facility] 10*3/uL HOSPITAL [facility] BASO x10^3 <0.03 0.01 - 0.07 [facility] 10*3/uL HOSPITAL [facility] Specimen Blood - VENOUS Performing Organization Address City/State/Zipcode Phone Number [facility] CLIA: [id number], [address] [place] [address] LIPASE, SERUM (01/01/2020 8:53 AM SILVER PLATER) LIPASE 165 0 - 220 U/L [facility] Specimen Blood - VENOUS Performing Organization Address City/State/Zipcode Phone Number [facility] CLIA: [id number], [address] [place] [address] COMP. METABOLIC PANEL (65098) (01/01/2020 8:53 AM SILVER PLATER) NA 138 135 - 145 [facility] mmol/L [facility] K 4.1 3.5 - 5.0 [facility] mmol/L [facility] CL 99 98 - 108 mmol/L [facility] CO2 TOTAL 30 23 - 31 mmol/L [facility] AGAP 9 2 - 16 [facility] BUN 20 7 - 23 mg/dL [facility] GLUCOSE 128 (H) 70 - 110 mg/dL [facility] CREATININE 0.80 0.50 - 1.04 [facility] mg/dL [facility] TOTAL BILI 0.9 0.1 - 1.1 mg/dL [facility] CALCIUM 9.8 8.6 - 10.6 [facility] mg/dL [facility] T PROTEIN 7.7 6.3 - 8.2 g/dL [facility] ALBUMIN 4.0 3.5 - 5.0 g/dL [facility] ALK PHOS 78 34 - 122 U/L [facility] ALTv 109 (H) 5 - 35 U/L [facility] AST(SGOT) 189 (H) 13 - 40 U/L [facility] eGFR Calculation 70.3 mL/min/1.73m2 [facility] (Non[facility] LABORATORY Japanese) eGFR Calculation 85.2 mL/min/1.73m2 [facility] () [facility] Specimen Blood - VENOUS Narrative Performed At Association of Glomerular Filtration Rate (GFR) [facility] and Staging of Kidney Disease* [...] abnormalities in imaging tests). Performing Organization Address [facility] Facility[facility] Phone Number [facility] [id number], [address] [place], [place] [address] LAB[address] PROTHROMBIN TIME / INR (01/01/2020 8:53 AM SILVER PLATER) [facility] PROTIME PATIENT 12.3 12.0 - 14.7 [facility] LABORATORY INR 1.0Comment: Normal [facility] INR <1.1; Warfarin [facility] Therapeutic range LABORATORY 2.0 to 3.0 or 2.5 to 3.5, depending upon the indications. Specimen Blood - VENOUS Performing Organization Address [facility] Facilitycoco Phone Number [facility] CLIA: [id number], [address] [place], [place] [id number] LABORAT[address] aPTT (01/01/2020 8:53 AM SILVER PLATER) [facility] APTT Patient 27 23 - 38 Seconds [facility] Specimen Blood - VENOUS Narrative Performed At The [facility] patient population mean normal value [facility] for aPTT is 30 seconds. Performing Organization Address [facility] Facilitycode Phone Number [facility] CLIA: [id number], [address] [place] [address] [address] TROPONIN I (01/01/2020 8:53 AM SILVER PLATER) [facility] TROPONIN I 0.022 <=0.034 ng/mL [facility] Specimen Blood - VENOUS Narrative Performed At Equal or Less than 0.034 ng/ml---Normal [facility] Note: Cardiac troponin begins to [...] patient's use of biotin. Performing Organization Address City/State/Zipcode Phone Number [facility] CLIA: [id number], [address] [place] [address] documented in this encounter Visit Diagnoses Diagnosis SOB (shortness of breath) - Primary Shortness of breath Right-sided chest wall pain Painful respiration Chronic dyspnea documented in this encounter Administered Medications Medication Order MAR Action Action Date Dose Rate Site FENTanyl PF (SUBLIMAZE (PF)) Given 01/01/2020 9:03 AM SILVER PLATER 25 mcg injection 25 mcg 25 mcg, Slow IV Push, ONCE, 1 dose, Sat01/01/20 at 1015, STAT ketorolac (TORADOL) injection 15 mg Given 01/01/2020 10:19 AM SILVER PLATER 15 mg 15 mg, Slow IV Push, ONCE, 1 dose, Sat01/01/20 at 1130, Routine, sociology faculty member approving Restricted medication: VALENCIA COLVIN ondansetron (ZOFRAN (PF)) injection 4 mg Given 01/01/2020 9:03 AM SILVER PLATER 4 mg 4 mg, Slow IV Push, ONCE, 1 dose, Sat01/01/20 at 1015, WILLIAM documented in this encounter Insurance Payer Benefit Plan Subscriber ID Effective Phone Address Type / Group Dates AETNA - AETNA [id number] 2015-[place] [address] Medicare Adv MANAGED MEDICARE ADV [place] [id number] [place] [address] documented as of this encounter"
--- OUTSIDE RECORDS SUMMARY | 2020-01-02 17:06 | XMS REPORT | Summary of Care ---
:1945 Author Organization [facility] - Health Address [address] [place] [address] Care Team Providers Name Role Phone Sergio Berrios MD Primary Care Provider Encounter Details Date Type Department Care Team Description 12/28/2019 Orders Only [facility] Doctor Unassigned, No 301 [facility] [place] [address] 301 [place] [address] Allergies Active Allergy Reactions Severity Noted Date [...] Procedure Name Priority Date/Time Associated Diagnosis Comments PHYSICIAN ORDERS Routine 12/28/2019 12:01 AM QUARTER INSPECTOR documented in this encounter Results Not on filedocumented in this encounter Insurance Payer Benefit Plan Subscriber ID Effective Phone Address Type / Group Dates AETNA - AETNA [id number] 2015-[place]ev[place] [address] Medicare Adv MANAGED MEDICARE ADV nt [id number] [place] [address] documented as of this encounter
--- OUTSIDE RECORDS SUMMARY | 2020-01-02 17:06 | XMS REPORT | Summary of Care ---
:1945 Author Organization [facility] Address [address] [place] [address] Care Team Providers Name Role Phone Sergio Berrios MD Primary Care Provider Reason for Visit Reason Comments Referral/consult Encounter Details Date Type Department Care Team Description 12/29/2019 Telephone [facility] Family Sergio Berrios MD Referral/consult Medicine - [place] [address] [place] [phone] Allergies Active Allergy Reactions Severity Noted [...] Type / Group Dates AETNA - AETNA [id number] 2015-[place]evae[place] [address] Medicare Adv MANAGED MEDICARE [place]V nt [id number] [place] [address] documented as of this encounter
[2020-01-02] MEDS ORDERED: NA CHLORIDE 0.9% 1,000 ML ONE (17:54)
[2020-01-02] MEDS ORDERED: FENTANYL CITR 100 MCG/2 ML ONE (19:11)
[2020-01-02 19:35] LABS: Absolute Lymphocytes (CBC) 0.5 K/uL (0.7-4.9); Basophils % 0.2 % (0-1.3); Hematocrit 30.5 % (36.0-45.0); Lymphocytes % 12.7 % (15.3-44.8); MPV 8.3 fL (7.6-11.3); RBC Red Blood Cell Count 3.32 M/uL (3.86-4.86)
--- NOTE | 2020-01-02 19:57 | RAD REPORT ---
EXAM DESCRIPTION: CT - Abdomen Pelvis Wo Contrast - 01/02/2020 7:43 pm CLINICAL HISTORY: ABD PAIN , right upper quadrant pain, cardiac catheterization performed earlier in the day COMPARISON: No comparisons TECHNIQUE: Axial [address] imaging of the abdomen and pelvis was performed without IV contrast. No IV contrast was given because of allergy, abnormal renal function, patient refusal or physician re quest. No oral contrast given. All CT scans are performed using dose optimization technique as appropriate and may include automated exposure control or mA/KV adjustment according to patient size. FINDINGS: Minimal scarring or atelectasis changes present in each base. No pleural effusion, acute i nfiltrate or pneumothorax. No pericardial effusion. The liver, spleen and pancreas show no suspicious findings on non-contrast imaging. Numerous calcific ations present in the spleen. Gallbladder is absent. No biliary tree dilatation. No hydronephrosis or suspicious renal mass. Contrast is present in the system from earlier cathete rization. A 2.1 centimeter medial left renal cyst present. No significant adrenal finding. Isodense r enal masses and pyelonephritis cannot be excluded in the absence of IV contrast. The urinary bladder is without significant finding. No dilated bowel loops or bowel wall thickening. No acute GI process identifiable. Diverticulosis is minimal. No free air, pneumatosis or free fluid. There is minimal stranding in the fatty tissues osvaldo cent to the right common femoral artery. This is well within normal limits for recent catheterization . Pseudoaneurysm is not suspected. No catheterization related hematoma. No hernia, mass or bulky lymp hadenopathy. Disc and bony degenerative changes are present. Degenerative changes advanced at L5-S1. There are par s defects present with grade 1-2 spondylolisthesis. IMPRESSION: No hematoma, pseudoaneurysm or other catheterization related complication. No acute finding in the abdomen or pelvis. Nonacute findings detailed in the body of the report. Full assessment is limited is the absence of IV contrast.
[2020-01-02 20:13] LABS: Albumin 2.5 g/dL (3.4-5.0); Bilirubin Direct 0.2 mg/dL (0-0.2); Bilirubin Total 0.4 mg/dL (0.2-1.0); Potassium 4.4 mmol/L (3.5-5.1); Protein, Total 6.9 g/dL (6.4-8.2)
--- NOTE | 2020-01-02 21:41 | ER ---
Nurse's Notes [facility] Name: Kusum Duggan Age: 74 yrs Sex: Female : 1945 Arrival Date: 01/02/2020 Time: 17:11 Bed 19 Private MD: Diagnosis: Unspecified abdominal pain Presentation: 01/02 16:53 Presenting complaint: EMS states: Pt. had a cardiac catheterization done at [address] today and now has right upper quadrant pain and right shoulder pain. She has a history of Lupus and HTN. Allergic to Penicillin and Sulfa drugs. Pt. took two Vicodin 7.5 at home around 1500. EMS administered Fentanyl 75 mcg IVP x 1, and Zofran 4 mg IVP x 1 via a 22 G L hand. Transition of care: patient was not received from another setting of care. Onset of symptoms was January 02, 2020. Risk Assessment: Do you want to hurt yourself or someone else? Patient reports no desire to harm self or others. Care prior to arrival: Medication(s) given: zofran 4 mg, two Vicodin 7.5 mg \T\ 1500 today per pt. report. 16:53 Method Of Arrival: EMS: [place] [address] 16:53 Acuity: ONIEL 3 rb1 19:10 Initial Sepsis Screen: Does the patient meet any 2 criteria? HR > 90 bpm. Does the wh patient have a suspected source of infection? Yes: Acute abdominal pain. Triage Assessment: 16:53 General: Appears uncomfortable, Behavior is calm, cooperative. Pain: Complains of pain rb1 in right upper quadrant Pain currently is 10 out of 10 on a pain scale. Pain began today after his cardiac cath. Neuro: Level of Consciousness is awake, alert, obeys commands, Oriented to person, place, time, situation. Cardiovascular: Capillary refill < 3 seconds is brisk in bilateral fingers. Cardiovascular: Reports Cardiac cath was done today. Respiratory: Airway is patent Respiratory effort is even, unlabored, Respiratory pattern is regular, symmetrical. GI: No signs and/or symptoms were reported involving the gastrointestinal system. : No signs and/or symptoms were reported regarding the genitourinary system. Derm: Skin is pink, warm \T\ dry. Historical: - Allergies: 16:53 PENICILLINS; rb1 16:53 Sulfa (Sulfonamide Antibiotics); rb1 - PMHx: 16:53 Lupus; cardiac cath; Hypertension; rb1 - PSHx: 16:53 Hysterectomy; ; Cholecystectomy; cardiac cath TODAY; rb1 - Immunization history:: Adult Immunizations up to date. - Coronavirus screen:: The patient has NOT traveled to [place] in the past 14 days. The patient has NOT had contact with known/suspected case of Coronavirus?. - Social history:: Smoking status: Patient/guardian denies using. - Ebola Screening: : Patient negative for fever greater than or equal to 101.5 degrees Fahrenheit, and additional compatible Ebola Virus Disease symptoms. Screenin:53 Abuse screen: Denies threats or abuse. Nutritional screening: No deficits noted. rb1 Tuberculosis screening: No symptoms or risk factors identified. 19:10 Fall Risk IV access (20 points). Assessment: 16:53 General: See triage assessment. rb1 17:45 Reassessment: Patient appears in no apparent distress at this time. No changes from [facility] previously documented assessment. Family at the bedside. 18:45 Reassessment: Patient appears in no apparent distress at this time. Patient and/or [facility] family updated on plan of care and expected duration. Pain level reassessed. Patient is alert, oriented x 3, equal unlabored respirations, skin warm/dry/pink. 19:30 Reassessment: Patient appears in no apparent distress at this time. Patient and/or family updated on plan of care and expected duration. Pain level reassessed. Patient is alert, oriented x 3, equal unlabored respirations, skin warm/dry/pink. 20:45 Reassessment: Patient appears in no apparent distress at this time. No changes from previously documented assessment. Patient and/or family updated on plan of care and expected duration. Pain level reassessed. Patient is alert, oriented x 3, equal unlabored respirations, skin warm/dry/pink. 22:00 Reassessment: Patient appears in no apparent distress at this time. No changes from previously documented assessment. Patient and/or family updated on plan of care and expected duration. Pain level reassessed. Patient is alert, oriented x 3, equal unlabored respirations, skin warm/dry/pink. Patient states feeling better. Patient states symptoms have improved. Vital Signs: 16:53 BP 94 / 62; Pulse 107; Resp 19; Temp 97.6(O); Pulse Ox 98% on R/A; Weight 66.22 kg (R); rb1 Height 5 ft. 0 in. (152.40 cm) (R); Pain 10/10; 17:45 BP 97 / 59; Pulse 97; Resp 17; Pulse Ox 100% on R/A; Pain 10/10; rb1 18:45 BP 119 / 61; Pulse 82; Resp 16; Pulse Ox 100% on R/A; rb1 20:00 BP 106 / 51; Pulse 84; Resp 18; Pulse Ox 99% on 2 lpm NC; wh 21:00 BP 105 / 62; Pulse 83; Resp 18; Pulse Ox 98% on 2 lpm NC; wh 22:00 BP 125 / 63; Pulse 79; Resp 18; Pulse Ox 97% on 2 lpm NC; wh 16:53 Body Mass Index 28.51 (66.22 kg, 152.40 cm) rb1 ED Course: 16:53 Arm band placed on right wrist. rb1 16:53 Patient has correct armband on for positive identification. Bed in low position. Call rb1 light in reach. Side rails up X 1. cardiac monitor technician on. Pulse ox on. NIBP on. Warm blanket given. 16:53 Maintain EMS IV. Dressing intact. Good blood return noted. Site clean \T\ dry. Gauge \T\ rb 1 site: 22 G L AC. 17:11 Patient arrived in ED. rb1 17:17 Triage completed. rb1 17:19 Laurel Villagomez, GIOVANNI is Primary Nurse. rb1 17:23 Foster Bowden NP is PHCP. pm1 17:23 Nasim Kitchen MD is Attending Physician. pm1 19:43 CT completed. Patient tolerated procedure well. Patient moved back from CT. bq 22:12 No provider procedures requiring assistance completed. IV discontinued, intact, wh bleeding controlled, No redness/swelling at site. Administered Medications: 18:09 Drug: NS 0.9% 1000 ml Route: IV; Rate: 1000 ml; Site: left antecubital; rb1 22:13 Follow up: Response: No adverse reaction; IV Status: Completed infusion wh 19:12 Drug: fentaNYL (PF) 25 mcg Route: IVP; Site: left hand; wh 22:13 Follow up: Response: No adverse reaction; Pain is decreased; RASS: Alert and Calm (0) Outcome: 21:39 Discharge ordered by MD. pm1 22:12 Discharged to home via wheelchair, with family. 22:12 Condition: stable 22:12 Discharge instructions given to patient, family, Instructed on discharge instructions, follow up and referral plans. POC Demonstrated understanding of instructions, follow-up care, POC 22:13 Patient left the ED. Signatures: Pooja Fuentes Rebecca, RN RN rb1 Foster Bowden NP JTAC pm1 Rashid Klein
--- NOTE | 2020-01-02 21:41 | EDPHYS ---
Physician Documentation [facility] Name: Kusum Duggan Age: 74 yrs Sex: Female : 1945 Arrival Date: 01/02/2020 Time: 17:11 Bed 19 Private MD: ED Physician Nasim Kitchen HPI: 01/02 19:42 This 74 yrs old Female presents to ER via EMS with complaints of Right upper pm1 quadrant pain. 19:42 The patient presents with abdominal pain in the right upper quadrant. Onset: The pm1 symptoms/episode began/occurred yesterday. The symptoms do not radiate. Associated signs and symptoms: Pertinent negatives: nausea, vomiting, and diarrhea, chest pain, shortness of breath. Modifying factors: The symptoms are alleviated by positioning. the symptoms are aggravated by touching the area. Severity of pain: in the emergency department the pain is actually worse. The patient has been recently seen by a physician: Patient was seen at [facility] for the same complaint yesterday. Had blood performed and was discharged home with pain medications after consultation with Dr. Mauricio. Dr. Mauricio was consulted because the patient had a scheduled cardiac cath today. Historical: - Allergies: 16:53 PENICILLINS; rb1 16:53 Sulfa (Sulfonamide Antibiotics); rb1 - PMHx: 16:53 Lupus; cardiac cath; Hypertension; rb1 - PSHx: 16:53 Hysterectomy; ; Cholecystectomy; cardiac cath TODAY; rb1 - Immunization history:: Adult Immunizations up to date. - Coronavirus screen:: The patient has NOT traveled to [place] in the past 14 days. The patient has NOT had contact with known/suspected case of Coronavirus?. - Social history:: Smoking status: Patient/guardian denies using. - Ebola Screening: : Patient negative for fever greater than or equal to 101.5 degrees Fahrenheit, and additional compatible Ebola Virus Disease symptoms. ROS: 20:06 Constitutional: Negative for chills, and weight loss, Ocasional fevers with lupus pm1 flares Neck: Negative for injury, pain, and swelling, Cardiovascular: Negative for chest pain, palpitations, and edema, Respiratory: Negative for shortness of breath, cough, wheezing, and pleuritic chest pain. 20:06 Back: Negative for injury and pain, : Negative for injury, bleeding, discharge, and swelling, MS/Extremity: Negative for injury and deformity, Skin: Negative for injury, rash, and discoloration. 20:06 Neuro: Negative for headache, weakness, numbness, tingling, and seizure. 20:06 Abdomen/GI: Positive for abdominal pain, of the right upper quadrant, Negative for nausea, vomiting, and diarrhea, constipation. Exam: 20:06 Constitutional: This is a well developed, well nourished patient who is awake, alert, pm1 and in no acute distress. Head/Face: Normocephalic, atraumatic. Neck: Trachea midline, no thyromegaly or masses palpated, and no cervical lymphadenopathy. Supple, full range of motion without nuchal rigidity, or vertebral point tenderness. No Meningismus. Chest/axilla: Normal chest wall appearance and motion. Nontender with no deformity. No lesions are appreciated. Cardiovascular: Regular rate and rhythm with a normal S1 and S2. No gallops, murmurs, or rubs. Normal PMI, no JVD. No pulse deficits. Respiratory: Lungs have equal breath sounds bilaterally, clear to auscultation and percussion. No rales, rhonchi or wheezes noted. No increased work of breathing, no retractions or nasal flaring. 20:06 Skin: Warm, dry with normal turgor. Normal color with no rashes, no lesions, and no evidence of cellulitis. MS/ Extremity: Pulses equal, no cyanosis. Neurovascular intact. Full, normal range of motion. 20:06 Abdomen/GI: Inspection: abdomen appears normal, Bowel sounds: normal, Palpation: soft, mild abdominal tenderness, in the right upper quadrant, mass, is not appreciated, rebound tenderness, is not appreciated. 20:06 Neuro: Orientation: is normal, Motor: is normal, moves all fours. 21:38 Abdomen/GI: Inspection: Bowel sounds: normal, Palpation: abdomen is soft and pm1 non-tender, in all quadrants. Vital Signs: 16:53 BP 94 / 62; Pulse 107; Resp 19; Temp 97.6(O); Pulse Ox 98% on R/A; Weight 66.22 kg (R); rb1 Height 5 ft. 0 in. (152.40 cm) (R); Pain 10/10; 17:45 BP 97 / 59; Pulse 97; Resp 17; Pulse Ox 100% on R/A; Pain 10/10; rb1 18:45 BP 119 / 61; Pulse 82; Resp 16; Pulse Ox 100% on R/A; rb1 20:00 BP 106 / 51; Pulse 84; Resp 18; Pulse Ox 99% on 2 lpm NC; wh 21:00 BP 105 / 62; Pulse 83; Resp 18; Pulse Ox 98% on 2 lpm NC; wh 22:00 BP 125 / 63; Pulse 79; Resp 18; Pulse Ox 97% on 2 lpm NC; wh 16:53 Body Mass Index 28.51 (66.22 kg, 152.40 cm) rb1 MDM: 17:23 Patient medically screened. pm1 21:38 Data reviewed: vital signs. Data interpreted: Pulse oximetry: on room air is 99 %. pm1 Interpretation: normal. 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 21:38 ED course: Patient without any abdominal tenderness on reexamination after pain pm1 medication. CT negative for any acute findings. Elevation of liver enzymes and according to family that is not new and has appointment with GI on Saturday for that specific issue. Lipase slightly elevated but not enough to indicate pancreatitis given normal CT findings. 21:39 Special discussion: Based on the patient's Hx, exam, and Dx evaluation, there is no pm1 indication for emergent surgery or inpatient Tx. It is understood by the patient/guardian that if the Sx's persist or worsen they need to return immediately for re-evaluation. 01/02 17:30 Order name: Basic Metabolic Panel pm1 01/02 17:30 Order name: CBC with Diff pm01/02 17:30 Order name: Creatinine for Radiology pm1 01/02 17:30 Order name: Hepatic Function pm1 01/02 17:30 Order name: Lipase pm1 01/02 19:38 Order name: CBC with Automated Diff; Complete Time: 19:41 EDMS 01/02 17:30 Order name: CT Abd/Pelvis - IV Contrast Only pm1 01/02 20:10 Order name: Creatinine (Radiology Only); Complete Time: 20: EDSC 01/02 20:14 Order name: Basic Metabolic Panel; Complete Time: : EDSC 01/02 20:15 Order name: Liver (Hepatic) Function; Complete Time: 20:26 EDMS 01/02 20:15 Order name: Lipase; Complete Time: 20:26 EDSC 01/02 21:12 Order name: CT; Complete Time: 21:18 EDSC 01/02 17:30 Order name: IV Saline Lock; Complete Time: 18:14 pm1 01/02 17:30 Order name: Labs collected and sent; Complete Time: 18:53 pm1 Administered Medications: 18:09 Drug: NS 0.9% 1000 ml Route: IV; Rate: 1000 ml; Site: left antecubital; [facility] 22:13 Follow up: Response: No adverse reaction; IV Status: Completed infusion 19:12 Drug: fentaNYL (PF) 25 mcg Route: IVP; Site: left hand; 22:13 Follow up: Response: No adverse reaction; Pain is decreased; RASS: Alert and Calm (0) Disposition: 01/03 07:06 Co-signature as Attending Physician, Nasim Kitchen MD. rn Disposition: 01/02/20 21:39 Discharged to Home. Impression: Unspecified abdominal pain. - Condition is Stable. - Discharge Instructions: Abdominal Pain, Adult. - Medication Reconciliation Form, Thank You Letter, Antibiotic Education, Prescription Opioid Use form. - Follow up: Emergency Department; When: As needed; Reason: Worsening of condition. Follow up: Private Physician; When: 2 - 3 days; Reason: Recheck today's complaints, Continuance of care, Re-evaluation by your physician. - Problem is new. - Symptoms have improved. Signatures: Dispatcher [employer] [facility] Nasim Kitchen MD MD rn Barber, Rebecca, RN RN Foster Cannon, [employer] BRANDING MACHINE OPERATOR pm1 Rashid Klein Corrections: (The following items were deleted from the chart) 01/02 18:03 16:33 Rate is 78 beats/min. Rhythm is regular, Normal Sinus Rhythm with No ectopy. QT pm1 interval is normal. No Q waves. T waves are Normal. No ST changes noted. Clinical impression: Normal ECG. pm1 22:13 21:39 01/02/2020 21:39 Discharged to Home. Impression: Unspecified abdominal pain. wh Condition is Stable. Forms are Medication Reconciliation Form, Thank You Letter, Antibiotic Education, Prescription Opioid Use. Follow up: Emergency Department; When: As needed; Reason: Worsening of condition. Follow up: Private Physician; When: 2 - 3 days; Reason: Recheck today's complaints, Continuance of care, Re-evaluation by your physician. Problem is new. Symptoms have improved. pm1
[2020-01-02 23:12] VITALS: BP 125/63; O2SAT 97
[2020-01-14] MEDS ORDERED: MORPHINE 4 MG/ML SYR ONE (02:40)
[2020-01-14] MEDS ORDERED: ONDANSETRON 4 MG/2 ML VIAL ONE (02:40)
== END 2020-01-02 22:13 | disposition home or self-care (01) ==
LOC: ER 16:55
DX: R10.11 Right upper quadrant pain (principal); I10 Essential (primary) hypertension; Z88.0 Allergy status to penicillin; Z88.2 Allergy status to sulfonamides
CPT/HCPCS: 96361; 85025; 80048; 36415; 80076; 83690; 74176; 96374; 99285; J3010; J7030

== ENCOUNTER 2020-01-14 01:44 | Observation (INO) | payer OTHER ==
--- OUTSIDE RECORDS SUMMARY | 2020-01-14 01:47 | XMS REPORT ---
:1945 [facility] Address [address] [place] [address] Care Team Providers Name Role Phone Unavailable [...] Comments Text Results Atomic Results Result Comments ISTAT BLOOD GAS 2020-01-05 10:59:00 Test Item Value Reference Range Comments ISTAT-PH ARTERIAL (test code=PHAP) 7.323 7.32-7.50 ISTAT-PCO2 ARTERIAL (test code=PCO2AP) 53.9 MMHG 27.0-40.0 ISTAT-PO2 ARTERIAL (test code=PO2AP) 40 MMHG 80.0-100.0 ISTAT-HCO3 ARTERIAL (test code=HCO3AP) 27.9 MMOL/L 18-23 ISTAT-BASE EXCESS ARTERIAL (test code=BEAP) 2 MMOL/L ISTAT-SO2 ARTERIAL (test code=SO2AP) 69 % 95-98 IONIZED CALCIUM (test code=CAIABG) 1.29 MMOL/L 1.12-1.24 ISTAT-SODIUM (test code=NAP) 133 MMOL/L 137-144 ISTAT-POTASSIUM (test code=KP) 3.9 MMOL/L 3.1-4.8 ISTAT-GLUCOSE (test code=GLUP) 96 MG/DL 60-99 ISTAT BLOOD [id number] 10:59:00 Test Item Value Reference Range Comments ISTAT-PH ARTERIAL (test code=PHAP) 7.335 7.32-7.50 ISTAT-PCO2 ARTERIAL (test code=PCO2AP) 49.5 MMHG 27.0-40.0 ISTAT-PO2 ARTERIAL (test code=PO2AP) 82 MMHG 80.0-100.0 ISTAT-HCO3 ARTERIAL (test code=HCO3AP) 26.4 MMOL/L 18-23 ISTAT-BASE EXCESS ARTERIAL (test code=BEAP) 1 MMOL/L ISTAT-SO2 ARTERIAL (test code=SO2AP) 95 % 95-98 IONIZED CALCIUM (test code=CAIABG) 1.31 MMOL/L 1.12-1.24 ISTAT-SODIUM (test code=NAP) 133 MMOL/L 137-144 ISTAT-POTASSIUM (test code=KP) 3.9 MMOL/L 3.1-4.8 ISTAT-GLUCOSE (test code=GLUP) 96 MG/DL 60-99 BASIC METABOLIC [id number] 05:50:00 Test Item Value Reference Range Comments [...] HIGH.........130-159 mg/dL HIGH.........160-189 mg/dL VERY HIGH.........>/=190 mg/dL [id number] 05:50:00 Test Item Value Reference Range Comments MAGNESIUM (test code=MAG) 1.5 MG/DL 1.6-2.3 PROTHROMBIN [id number] 05:43:00 Test Item Value Reference Range Comments [...] systemic embolism. 3.0 - 4.5 Comments to Rug Dry Room Attendant: WILL BRING TO LABPTT [id number] 05:43:00 Test Item Value Reference Range Comments PTT ACTIVATED (test code=APTT) 26.0 SECONDS 25.1-36.5 Comments to Rug Dry Room Attendant: [facility]AUTO [id number] 05:41:00 Test Item Value Reference Range Comments [...] (test code=NRBC#) 0.00 K/mm3 0.0-0.1 BASIC METABOLIC [id number] 05:39:00 Test Item Value Reference Range Comments [...] code=HDL) LIPOPROTEIN LDL (test MG/DL 0-99 code=LDL) [id number] 05:39:00 Test Item Value Reference Range Comments MAGNESIUM (test code=MAG) 1.5 MG/DL 1.6-2.3 BASIC METABOLIC [id number] 05:38:00 Test Item Value Reference Range Comments [...] 40-59 LIPOPROTEIN LDL (test code=LDL) MG/DL 0-99 [id number] 05:38:00 Test Item Value Reference Range Comments MAGNESIUM (test code=MAG) MG/DL 1.6-2.3 BASIC METABOLIC [id number] 05:38:00 Test Item Value Reference Range Comments [...] code=HDL) LIPOPROTEIN LDL (test MG/DL 0-99 code=LDL) [id number] 05:38:00 Test Item Value Reference Range Comments MAGNESIUM (test code=MAG) 1.5 MG/DL 1.6-2.3 BASIC METABOLIC [id number] 05:37:00 Test Item Value Reference Range Comments [...] 40-59 LIPOPROTEIN LDL (test code=LDL) MG/DL 0-99 [id number] 05:37:00 Test Item Value Reference Range Comments MAGNESIUM (test code=MAG) MG/DL 1.6-2.3 BASIC METABOLIC [id number] 05:35:00 Test Item Value Reference Range Comments [...] 40-59 LIPOPROTEIN LDL (test code=LDL) MG/DL 0-99 [id number] 05:35:00 Test Item Value Reference Range Comments MAGNESIUM (test code=MAG) MG/DL 1.6-2.3
[2020-01-14 02:35] LABS: Basophils % 1.3 % (0-1.3); Hematocrit 30.8 % (36.0-45.0); Lymphocytes % 21.3 % (15.3-44.8); MPV 8.2 fL (7.6-11.3); Protime INR 1.03; RBC Red Blood Cell Count 3.41 M/uL (3.86-4.86)
[2020-01-14 02:59] LABS: ALT/SGPT 66 U/L (12-78); AST/SGOT 137 U/L (15-37); Albumin 2.8 g/dL (3.4-5.0); Alkaline Phosphatase 113 U/L (45-117); BUN Blood Urea Nitrogen 16 mg/dL (7-18); Bicarbonate 27 mmol/L (21-32); Bilirubin Direct 0.3 mg/dL (0-0.2); Bilirubin Total 0.5 mg/dL (0.2-1.0); Glucose Level 92 mg/dL (74-106); NT PRO-BNP 531 pg/mL (<125); Potassium 3.7 mmol/L (3.5-5.1); Protein, Total 8.1 g/dL (6.4-8.2); Sodium Level 136 mmol/L (136-145); Troponin (Emerg Dept Use Only) < 0.02 ng/mL (0.0-0.045)
[2020-01-14 03:03] LABS: Magnesium 1.3 mg/dL (1.8-2.4)
[2020-01-14 05:19] LABS: Blood Gas Oxyhemoglobin 96.2 % (94-97)
--- NOTE | 2020-01-14 05:47 | EDPHYS ---
Physician Documentation [facility] Name: Kusum Duggan Age: 74 yrs Sex: Female : 1945 Arrival Date: 01/14/2020 Time: 01:45 Bed 3 Private MD: ED Physician Catarino Thomson HPI: 01/13 03:18 This 74 yrs old Female presents to ER via Wheelchair with complaints of tw4 Anxiety. 03:18 The patient or guardian reports chest pain that is located primarily in the anterior tw4 chest wall. Onset: just prior to arrival, today. The pain does not radiate. Associated signs and symptoms: The patient has no apparent associated signs or symptoms. The chest pain is described as dull. Duration: The patient or guardian reports a single episode. Severity of pain: At its worst the pain was. Historical: - Allergies: 02:23 PENICILLINS; mg2 02:23 Sulfa (Sulfonamide Antibiotics); mg2 - Home Meds: 04:28 losartan 25 mg [Active]; estrogen 0.5 mg am [Active]; cyclosporin drops [Active]; vit mg2 b12 5000 mcg [Active]; vit c 500 mcg pm [Active]; escitalopram 20 mg pm [Active]; omeprazole 40 mg am [Active]; Calcium Citrate Oral [Active]; cholecalciferol (vitamin D3) oral oral [Active]; centrum liver [Active]; - PMHx: 02:23 cardiac cath; Hypertension; Lupus; mg2 04:28 Arthritis; IBS; diverticulosis; Hyperlipidemia; mg2 - PSHx: 02:23 None; mg2 - Immunization history:: Flu vaccine is up to date. - Social history:: Smoking status: Patient denies any tobacco usage or history of. Patient/guardian denies using alcohol, street drugs, IV drugs. ROS: 03:18 Constitutional: Negative for fever, chills, and weight loss. tw4 03:18 Abdomen/GI: Negative for abdominal pain, nausea, vomiting, diarrhea, and constipation, Back: Negative for injury and pain, MS/Extremity: Negative for injury and deformity, Skin: Negative for injury, rash, and discoloration, Neuro: Negative for headache, weakness, numbness, tingling, and seizure. 03:18 Cardiovascular: Positive for chest pain, Negative for edema, orthopnea. 03:18 Respiratory: Positive for shortness of breath, Negative for cough, dyspnea on exertion, hemoptysis, orthopnea. Exam: 03:18 Constitutional: This is a well developed, well nourished patient who is awake, alert, tw4 and in no acute distress. Head/Face: Normocephalic, atraumatic. Cardiovascular: Regular rate and rhythm with a normal S1 and S2. No gallops, murmurs, or rubs. Normal PMI, no JVD. No pulse deficits. Respiratory: Lungs have equal breath sounds bilaterally, clear to auscultation and percussion. No rales, rhonchi or wheezes noted. No increased work of breathing, no retractions or nasal flaring. Abdomen/GI: Soft, non-tender, with normal bowel sounds. No distension or tympany. No guarding or rebound. No evidence of tenderness throughout. Back: No spinal tenderness. No costovertebral tenderness. Full range of motion. MS/ Extremity: Pulses equal, no cyanosis. Neurovascular intact. Full, normal range of motion. Neuro: Awake and alert, GCS 15, oriented to person, place, time, and situation. Cranial nerves II-XII grossly intact. Motor strength 5/5 in all extremities. Sensory grossly intact. Cerebellar exam normal. Normal gait. Vital Signs: 02:00 BP 156 / 96; Pulse 101; Resp 32; Temp 98.6; Pulse Ox 97% on R/A; mg2 03:10 BP 157 / 83; Pulse 107; Resp 26; Temp 99.7(TE); Pulse Ox 99% on 2 lpm NC; mg2 04:19 BP 158 / 75; Pulse 108; Resp 23; Pulse Ox 99% on 2 lpm NC; mg2 05:16 BP 143 / 76; mg2 05:40 BP 128 / 67; Pulse 104; Resp 18; Pulse Ox 89% on R/A; mg2 05:45 Pulse Ox 97% on 2 lpm NC; mg2 07:39 BP 124 / 69; Pulse 96; Resp 17 S; Pulse Ox 98% on 2 lpm NC; Pain 0/10; jl7 MDM: 01:59 Patient medically screened. tw4 03:18 Data reviewed: vital signs, nurses notes. Counseling: I had a detailed discussion with tw4 the patient and/or guardian regarding: the historical points, exam findings, and any diagnostic results supporting the discharge/admit diagnosis. 01/13 01:59 Order name: Basic Metabolic Panel; Complete Time: 03:11 tw01/13 03:14 Interpretation: Normal except: GFR 73; CA 9.3. 01/13 01:59 Order name: CBC with Diff; Complete Time: 03:11 tw4 01/13 03:14 Interpretation: Normal except: WBC 4.8; RBC 3.41; HGB 10.4; HCT 30.8; PLT 388. 01/13 01:59 Order name: LFT's; Complete Time: 03:11 01/13 03:14 Interpretation: Normal except: AST 137; BILID 0.3; ALB 2.8; GLOB 5.3; A/G 0.5. 01/13 01:59 Order name: Magnesium; Complete Time: 03:11 01/13 03:14 Interpretation: Normal except: MG 1.3. 01/13 01:59 Order name: NT PRO-BNP; Complete Time: 03:11 01/13 03:14 Interpretation: Normal except: NT PRO-BNP 531. 01/13 01:59 Order name: PT-INR; Complete Time: 03:11 01/13 03:14 Interpretation: Within normal limits: PT 12.1. 01/13 01:59 Order name: Troponin (emerg Dept Use Only); Complete Time: 03:11 01/13 03:14 Interpretation: Within normal limits: TROPED < 0.02. 01/13 04:55 Order name: ABG mg2 01/13 05:21 Order name: Troponin (emerg Dept Use Only): \T\ 0540 mg2 01/13 06:47 Order name: Troponin I EDMS 01/13 06:47 Order name: CBC with Automated Diff EDMS 01/13 06:47 Order name: CBC with Automated Diff EDMS 01/13 06:47 Order name: Comprehensive Metabolic Panel EDMS 01/13 06:48 Order name: Comprehensive Metabolic Panel EDMS 01/13 01:59 Order name: XRAY Chest (1 view) tw4 01/13 01:59 Order name: EKG; Complete Time: 02:03 01/13 01:59 Order name: Cardiac monitoring; Complete Time: 02:43 01/13 01:59 Order name: EKG - Nurse/Tech; Complete Time: 02:43 01/13 01:59 Order name: IV Saline Lock; Complete Time: 02:43 01/13 01:59 Order name: Labs collected and sent; Complete Time: 02:43 01/13 01:59 Order name: O2 Per Protocol; Complete Time: 02:43 01/13 01:59 Order name: O2 Sat Monitoring; Complete Time: 02:43 01/13 03:15 Order name: CT Chest For PE Angio tw4 01/13 06:47 Order name: CONS Pharmacy Consult EDMT 01/13 06:47 Order name: CONS Physician Consult EDMT 01/13 06:47 Order name: Heart Healthy EDMT 01/13 06:48 Order name: Lipid Profile EDMT 01/13 06:48 Order name: Lipid Profile EDMT Administered Medications: 02:40 Drug: morphine 4 mg Route: IVP; Site: right forearm; mg2 04:28 Follow up: Response: No adverse reaction; Marked relief of symptoms mg2 02:40 Drug: Zofran (Ondansetron) 4 mg Route: IVP; Site: right forearm; mg2 04:28 Follow up: Response: No adverse reaction; Marked relief of symptoms mg2 Disposition: 01/14/20 05:46 Hospitalization ordered by Lorri Warren for Observation. Preliminary diagnosis is Other chest pain. - Bed requested for Telemetry/MedSurg (observation). - Status is Observation. jl7 - Condition is Stable. - Problem is new. - Symptoms are unchanged. Signatures: Dispatcher [employer] EDMT Mellissa Kraft RN RN tl1 Gavino Ceja RN RN jl7 Catarino Thomson MD MD tw4 Marquise Chen RN RN mg2 Corrections: (The following items were deleted from the chart) 06:52 05:46 Hospitalization Ordered by Lorri Warren MD for Observation. Preliminary tl1 diagnosis is Other chest pain. Bed requested for Telemetry/MedSurg (observation). Status is Observation. Condition is Stable. Problem is new. Symptoms are unchanged. tw4 07:51 06:52 01/14/2020 05:46 Hospitalization Ordered by Lorri Warren MD for Observation. jl7 Preliminary diagnosis is Other chest pain. Bed requested for Telemetry/MedSurg (observation). Status is Observation. Condition is Stable. Problem is new. Symptoms are unchanged. tl1
--- NOTE | 2020-01-14 05:47 | ER ---
Nurse's Notes [facility] Name: Kusum Duggan Age: 74 yrs Sex: Female : 1945 Arrival Date: 01/14/2020 Time: 01:45 Bed 3 Private MD: Diagnosis: Other chest pain Presentation: 01/13 02:00 Chief complaint: Patient's son or daughter states: she was doing sleep study when she mg2 woke up with chest pain radiating to the back and shortness of breath.. she had cardiac cath 1.5 week ago and she had mild pulmonary hypertension. Coronavirus screen: The patient has NOT traveled to a country currently being monitored by the [facility] within the last 14 days. Proceed with normal triage procedures. The patient has NOT had contact with any known and/or suspected case of coronavirus. Proceed with normal triage procedures. Ebola Screen: No symptoms or risks identified at this time. Initial Sepsis Screen: Does the patient meet any 2 criteria? No. Patient's initial sepsis screen is negative. Does the patient have a suspected source of infection? No. Patient's initial sepsis screen is negative. Risk Assessment: Do you want to hurt yourself or someone else? Patient reports no desire to harm self or others. 02:00 Method Of Arrival: Wheelchair mg2 02:00 Acuity: ONIEL 2 mg2 02:48 Onset of symptoms was January 14, 2020. mg2 Historical: - Allergies: 02:23 PENICILLINS; mg2 02:23 Sulfa (Sulfonamide Antibiotics); mg2 - Home Meds: 04:28 losartan 25 mg [Active]; estrogen 0.5 mg am [Active]; cyclosporin drops [Active]; vit mg2 b12 5000 mcg [Active]; vit c 500 mcg pm [Active]; escitalopram 20 mg pm [Active]; omeprazole 40 mg am [Active]; Calcium Citrate Oral [Active]; cholecalciferol (vitamin D3) oral oral [Active]; centrum liver [Active]; - PMHx: 02:23 cardiac cath; Hypertension; Lupus; mg2 04:28 Arthritis; IBS; diverticulosis; Hyperlipidemia; mg2 - PSHx: 02:23 None; mg2 - Immunization history:: Flu vaccine is up to date. - Social history:: Smoking status: Patient denies any tobacco usage or history of. Patient/guardian denies using alcohol, street drugs, IV drugs. Screenin:47 Abuse screen: Denies threats or abuse. Denies injuries from another. Nutritional mg2 screening: No deficits noted. Tuberculosis screening: No symptoms or risk factors identified. Fall Risk IV access (20 points). Assessment: 02:47 General: Appears distressed, Behavior is anxious. Pain: Complains of pain in chest Pain mg2 radiates to back. Neuro: Level of Consciousness is awake, alert, obeys commands, Oriented to person, place, time, situation. Cardiovascular: Reports chest pain, shortness of breath, Capillary refill < 3 seconds Patient's skin is warm and dry. Respiratory: Airway is patent Respiratory effort is even, labored, Respiratory pattern is regular, symmetrical. GI: No signs and/or symptoms were reported involving the gastrointestinal system. : No signs and/or symptoms were reported regarding the genitourinary system. EENT: No signs and/or symptoms were reported regarding the EENT system. Derm: Skin is intact, is healthy with good turgor, Skin is pink, warm \T\ dry. normal. Musculoskeletal: Circulation, motion, and sensation intact. Capillary refill < 3 seconds. 03:13 Reassessment: Patient appears in no apparent distress at this time. Patient and/or mg2 family updated on plan of care and expected duration. Pain level reassessed. Patient is alert, oriented x 3, equal unlabored respirations, skin warm/dry/pink. Patient states feeling better. 04:30 Reassessment: Patient appears in no apparent distress at this time. Patient and/or mg2 family updated on plan of care and expected duration. Pain level reassessed. Patient is alert, oriented x 3, equal unlabored respirations, skin warm/dry/pink. 05:44 Reassessment: Patient appears in no apparent distress at this time. Patient and/or mg2 family updated on plan of care and expected duration. Pain level reassessed. Patient is alert, oriented x 3, equal unlabored respirations, skin warm/dry/pink. patient still complains of chest pain. provider advised to keep the patient for admission. patient agreed. repeat trop sent to lab. 07:39 Reassessment: Patient appears in no apparent distress at this time. Patient and/or jl7 family updated on plan of care and expected duration. Pain level reassessed. Patient is alert, oriented x 3, equal unlabored respirations, skin warm/dry/pink. Patient denies pain at this time. Vital Signs: 02:00 BP 156 / 96; Pulse 101; Resp 32; Temp 98.6; Pulse Ox 97% on R/A; mg2 03:10 BP 157 / 83; Pulse 107; Resp 26; Temp 99.7(TE); Pulse Ox 99% on 2 lpm NC; mg2 04:19 BP 158 / 75; Pulse 108; Resp 23; Pulse Ox 99% on 2 lpm NC; mg2 05:16 BP 143 / 76; mg2 05:40 BP 128 / 67; Pulse 104; Resp 18; Pulse Ox 89% on R/A; mg2 05:45 Pulse Ox 97% on 2 lpm NC; mg2 07:39 BP 124 / 69; Pulse 96; Resp 17 S; Pulse Ox 98% on 2 lpm NC; Pain 0/10; jl7 ED Course: 01:45 Patient arrived in ED. cl3 01:59 Catarino Thomson MD is Attending Physician. tw4 02:00 Inserted saline lock: 20 gauge in right forearm, using aseptic technique. Blood mg2 collected. 02:10 Marquise Chen, RN is Primary Nurse. mg2 02:18 XRAY Chest (1 view) In Process Unspecified. EDMS 02:23 Triage completed. mg2 02:47 Arm band placed on. mg2 02:47 No provider procedures requiring assistance completed. mg2 02:48 Patient has correct armband on for positive identification. Placed in gown. Bed in low mg2 position. Side rails up X2. finishing and shipping supervisor on. Pulse ox on. NIBP on. Door closed. Warm blanket given. Pillow given. 04:28 CT Chest For PE Angio In Process Unspecified. EDMS 05:45 Lorri Warren MD is Hospitalizing Provider. tw4 07:39 Patient admitted, IV remains in place. intact, No redness/swelling at site. jl7 Administered Medications: 02:40 Drug: morphine 4 mg Route: IVP; Site: right forearm; mg2 04:28 Follow up: Response: No adverse reaction; Marked relief of symptoms mg2 02:40 Drug: Zofran (Ondansetron) 4 mg Route: IVP; Site: right forearm; mg2 04:28 Follow up: Response: No adverse reaction; Marked relief of symptoms mg2 Outcome: 05:46 Decision to Hospitalize by Provider. tw4 07:39 Admitted to Tele accompanied by tech, family with patient, via stretcher, room 212, jl7 with oxygen, with chart, Report called to GIOVANNI Sosa 07:39 Condition: stable 07:39 Discharge instructions given to patient, family, Instructed on the need for admit, Demonstrated understanding of instructions. 07:51 Patient left the ED. jl7 Signatures: Dispatcher [employer] EDGavino Ortiz RN RN jl7 Catarino Thomson MD MD tw4 Marquise Chen RN RN mg2 Mychal Francis cl3 Corrections: (The following items were deleted from the chart) 05:46 05:45 BP 128 / 67; Pulse 104bpm; Resp 18bpm; Pulse Ox 89% RA; mg2 mg2
[2020-01-14] MEDS ORDERED: ONDANSETRON 4 MG/2 ML VIAL IV PRN (06:40)
[2020-01-14] MEDS ORDERED: MORPHINE 2 MG/ML SYR IV PRN ×2 (06:40→06:45)
[2020-01-14] MEDS ORDERED: ALBUTEROL 2.5 MG/3 ML NEB SOL NEB PRN (06:40)
[2020-01-14] MEDS ORDERED: HYDRALAZINE HCL 20 MG/ML VIAL IV PRN (06:45)
[2020-01-14] MEDS ORDERED: NA CHLORIDE 0.9% 1,000 ML IV SCH (07:00)
[2020-01-14] MEDS ORDERED: PANTOPRAZOLE 40MG TABLET PO SCH (07:30)
[2020-01-14] MEDS ORDERED: IPRATROPIUM BROM 0.5MG/2.5ML NEB SCH (08:00)
--- NOTE | 2020-01-14 08:16 | RAD REPORT ---
EXAM DESCRIPTION: Karsten Single View01/14/2020 2:18 am CLINICAL HISTORY: Chest pain COMPARISON: none FINDINGS: A lingular opacity is seen. Right lung is clear of acute infiltrate The heart is mildly enlarged IMPRESSION: Lingular opacity probably representing atelectasis. This should be followed until it is clear help exclude post obstructive process/underlying mass
[2020-01-14] MEDS ORDERED: HYDROCODONE/APAP 7.5/325 MG TAB PO PRN (08:17)
[2020-01-14] MEDS ORDERED: TRAMADOL HCL 50 MG TAB PO PRN (08:17)
[2020-01-14] MEDS ORDERED: IPRATROPIUM BROM 0.5MG/2.5ML NEB PRN (08:24)
--- NOTE | 2020-01-14 08:35 | HP ---
Date of Admission: 01/14/2020 Presenting Complaint: Chest pain, hypoxia. History Of Present Illness: Kusum Duggan is a 74-year-old female with past medical history of hypertension, SLE since over 30 years. Initially controlled with Plaquenil and switch ed to Imuran 4 years ago due to concern about eye problems. Patient was controlled on Imu ran until about 6 months ago when she was noted with elevated liver enzymes and Imuran was held. She has been on low-dose prednisone since then. Patient since the last 1 month has been developing recu rrent chest pain. Pain is usually started in the right rib margin and radiating towards the substern al area, occasionally extended to the left chest wall. Pain also seems to be radiating to the back. Pain was severe enough last week. She was evaluated at the Emergency Room and transferre d to [facility] where she underwent a cardiac catheterization by Dr. Orozco. Family repo rts cardiac cath was negative except for mild pulmonary hypertension. She was not started on any new medications at discharge. Patient continued to recall occurring on average daily and resolving afte r many hours. She admits to some cough, but no significant amount of sputum. She denies any fever o r chills. She denies any recent travel. She denies any cough contacts. She went for a scheduled sl eep study today and at about 2 a.m. upon waking up, she developed similar recurrent chest pain. Her O2 saturation at that time was noted to be low in the 80s and she was transferred to the ED. She had a CT angiogram done that shows no evidence of overt pulmonary embolism. She has been admitted for f urther workup. Patient still continues to complain of pain symptoms, at the right rib margin now. Pain i s worse with deep breathing. Past Medical History: Hypertension, lupus, recent negative cardiac cath, official report pending. H istory of osteoarthritis, history of IBS, hyperlipidemia. Past Surgical History: Unknown. Home Medications: Omeprazole 40 daily, calcium citrate, cholecalciferol, Lexapro 20 daily, vitamin C 500, vitamin B12 at 5000 mcg daily, losartan 25 daily, cyclosporine drop. Allergies: SULFA WELL PENICILLIN. Family History: Noncontributory. Social History: Patient resides in the community with the family, spouse. She also have daughters a nd son in the area. She denies any history of tobacco, alcohol, or illicit drug use. Review of Systems: All system review x14 were negative. Physical Examination: Vitals Signs: Blood pressure of , pulse of 108, respiratory rate of 23, O2 saturation of 8 9% on room air, they increased to 99 on 2 L nasal cannula. General: Small-built female, not in any distress. On nasal cannula O2. HEENT: Head is atraumatic, normocephalic. Pupils equal, reactive to light. Anicteric. Moist oral mucosa. Neck: No JVD. No carotid bruit. Respiratory: Mild coarse crepitation bilaterally, fine rhonchi. Tenderness over the righ t rib margin extended to the posterior chest wall. Cardiovascular: S1, S2. Tachycardic. GI: Abdomen full, soft, nontender. Bowel sounds positive. Extremities: No pedal edema. No calf tenderness. Neuro: Patient is alert, oriented. Cranial nerves 2 through 12 grossly intact. Laboratory Data: WBC 4.8, hemoglobin 10.4, platelets 388. INR 1.03, pH 7.4, pCO2 of 38, PO2 of 111. Sodium 136, potassium 3.7, bicarb 27, creatinine 0.7, calcium 9.3, magnesium 1.3. AST and alkaline phosphatase borderline normal. ProBNP 531. Rapid troponin less than 0.02, repeat one 0.03. EKG sh ows sinus tachy at 108. No ST-segment changes. CT shows no overt pulmonary embolism, official readi ng pending. Lung chaudhari not clearly viewed. Impression: 1.Recurrent right-sided chest pain. 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 3.Hypertension. 4.Hypomagnesemia. Plan: We will admit patient to observation. We will obtain records of cardiac cath from [facility]. Continue serial set of cardiac enzymes, less likely cardiac etiology of pain since right-sided an d associated coarse crepitation. We will follow up official CT reading. We will start patient on em pirical antibiotics with Rocephin as well as mucolytics and we will also give IV Solu-Medrol now for presumed lupus pneumonitis. We will consult Pulmonary to continue help with care. We do subcutaneou s Lovenox for DVT prophylaxis. Start patient on gentle IV fluid hydration. We will replete tanika murray Advanced directives, patient is full code. EO/MODL Voice ID: [id number]
[2020-01-14 08:51] VITALS: BMI 26.5
[2020-01-14] MEDS ORDERED: Magnesium Sulfate 2gm IVPB 2 G/50 ML BAG IV ONE (09:00)
[2020-01-14] MEDS ORDERED: CEFTRIAXONE/SWI 1gm 1 GM/10 ML SYR IV SCH (09:00)
[2020-01-14] MEDS: FAMOTIDINE 20 MG TAB PO SCH ×2 (09:06→21:43)
[2020-01-14] MEDS: predniSONE 20 MG TAB PO SCH ×2 (09:06→21:43)
[2020-01-14] MEDS: HEPARIN 5000 UNIT/ML 1 ML VIAL SQ SCH ×2 (09:10→17:29)
[2020-01-14 09:31] LABS: Ferritin 811.3 ng/mL (8-388); Transferrin 185 mg/dL (200-360)
--- NOTE | 2020-01-14 10:41 | RAD REPORT ---
EXAM DESCRIPTION: Ribs Bilateral - 01/14/2020 10:07 am CLINICAL HISTORY: Rib pain, chronic, Hx Lupus, Evaluate for fracture COMPARISON: Chest Single View dated 01/14/2020; Chest For Pe Angio dated 01/14/2020 FINDINGS: No displaced rib fracture is evident. No non-displaced rib fracture suspected. Old posteri or left fourth rib fracture is present. No aggressive rib lesion. No underlying pneumothorax, effusion, infiltrate or pulmonary contusion. Numerous left upper quadrant calcifications are likely granulomas in the spleen. IMPRESSION: No rib fractures identified. Old posterior left fourth rib fracture present.
--- NOTE | 2020-01-14 10:44 | RAD REPORT ---
EXAM DESCRIPTION: RAD - Thoracic Spine W obliques - 01/14/2020 10:06 am CLINICAL HISTORY: ^Chronic rib pain, Hx of Lupus, back pain COMPARISON: None. FINDINGS: AP & lateral views of the thoracic spine were obtained. Thoracic bodies are normal in heig ht. Minimally accentuated kyphosis seen. Patient has a very minimal scoliotic curvature of the thorac ic spine with no lateral subluxation abnormalities. Mild for age endplate spurs are seen throughout t he thoracic spine. Several midthoracic disc levels show loss in disc height. No paraspinal masses are identified. No lytic, sclerotic or expansile bony destructive process. IMPRESSION: Thoracic spine degenerative changes are present relatively mild for age. No fracture or acute thoracic finding.
--- NOTE | 2020-01-14 11:22 | RAD REPORT ---
EXAM DESCRIPTION: CT - Chest For Pe Angio - 01/14/2020 7:21 am CLINICAL HISTORY: 74-year-old female with shortness of breath, right-sided chest pain for a couple o f days, status post cardiac catheterization on 01/02/2020, medical history of pulmonary hypertension, lupus and hypertension. TECHNIQUE: Following the administration of intravenous contrast, multiple high-resolution axial imag es of the chest were performed followed by sagittal and coronal reconstructed images. No MIP images w ere obtained. The CT study is performed according to ALARA (as low as reasonably achievable) or ALARA /IMAGE GENTLY, with automatic adjustment of mA and/or kV according to patient size. Performed on: 01/14/2020 at 3:58 AM COMPARISON: None FINDINGS: There is satisfactory visualization and contrast opacification of pulmonary arteries. No definite intra-arterial filling defects are identified to suggest acute or chronic pulmonary embolis m. The thoracic aorta is normal in caliber and contour without evidence of aneurysm or dissection. Th ere is a common origin of the left common carotid artery and right brachiocephalic artery. The lungs are well expanded and are clear. There is mild bilateral fibrosis and/or atelectasis. There is no evidence of a pneumothorax. There are no pleural effusions. The heart is mildly enlarged. There is no pericardial effusion. There is no evidence of hilar, mediastinal or axillary lymphadenopathy. No acute osseous abnormality is identified. The visualized upper abdominal structures reveal numerous calcified splenic granulomas. There is a ve ry small hiatal hernia. IMPRESSION: 1. No CT evidence to suggest acute or chronic pulmonary embolism, aortic aneurysm or aor tic dissection. 2. Mild bilateral fibrosis and/or atelectasis. 3. Mild cardiomegaly. 4. Evidence of prior granulomatous disease. 5. Very small hiatal hernia. Electronically signed by: Diamond Mobley DO 01/14/2020 4:40 AM GRINDING WHEEL FACER Due to temporary technical issues with the PACS/Fluency reporting system, reports are being signed by the in house radiologist as a courtesy to ensure prompt reporting. The interpreting radiologist is f shyannely responsible for the content of the report.
--- NOTE | 2020-01-14 11:37 | EKG ---
Test Date: 2020-01-14 Test Time: 01:57:54 [employer] Flatbed Driver: MEASUREMENT RESULTS: Intervals: Rate: 108 NC: 160 QRSD: 80 QT: 314 QTc: 420 [place]: P: 54 NC: 160 QRS: -1 T: 48 INTERPRETIVE STATEMENTS: Sinus tachycardia Minimal voltage criteria for LVH, may be normal variant Cannot rule out Anterior infarct, age undetermined Abnormal ECG Compared to ECG 07/25/2018 12:40:07 Myocardial infarct finding now present Sinus rhythm no longer present Electronically Signed On 01-14-20 11:36:17 FISHING TOOL SUPERVISOR by Alen Mancia
[2020-01-14] MEDS ORDERED: ACETAMINOPHEN 500 MG TAB PO PRN (11:51)
[2020-01-14] MEDS ORDERED: METHYLPREDNISOLONE 125 MG INJ IV SCH (12:00)
[2020-01-14] MEDS: LIDOCAINE 5% OINT 30 GM TUBE TOP SCH (13:21)
[2020-01-14 14:07] LABS: Urine Appearance CLEAR; Urine Bilirubin NEGATIVE (NEG); Urine Blood NEGATIVE (NEG); Urine Color YELLOW; Urine Glucose NEGATIVE (NEG); Urine Protein NEGATIVE (NEG); Urine pH 5.5 (5.0-7.0)
--- NOTE | 2020-01-14 14:31 | P.CNS ---
Date of Consult: 01/14/20 Reason for Consult: Pulmonary fibrosis hypoxemia Chief Complaint: Back pain chronic shortness of breath History of Present Illness: Patient is 74 years of age with a history of lupus chronic steroid use has been complaining of these back pain radiating to the sides the past couple of weeks she has at chronic dyspnea since Suzanne was evaluated by a remedial reading teacher. Patient was scheduled to have a sleep study done apparently she tends to sleep on her side developed worsening pain and was admitted according to the relatives she is chronic borderline fever with a cough is on home oxygen CT scan shows some interstitial lung disease workup was in progress seen by rheumatology Allergies Penicillins Allergy (Verified 01/14/20 07:10) Hives Home Medications: Ascorbic Acid [Vitamin C] 1 tab PO DAILY 01/14/20 Calcium Citrate 1 tab PO DAILY 01/14/20 Cyanocobalamin (Vitamin B-12) [Vitamin B12] 1 tab PO DAILY 01/14/20 Cyclosporine [Restasis] 1 drop EACH EAR DAILY 01/14/20 Escitalopram [Lexapro*] 1 tab PO DAILY 01/14/20 Estrogen,Inga/Me-Testosterone [Estrogen-Methyltestos F.s. Tab] 0.5 mg PO DAILY 01/14/20 Losartan Potassium [Cozaar] 1 tab PO DAILY 01/14/20 Multivit-Min/FA/Lycopen/Lutein [Centrum Silver Tablet] 1 tab PO DAILY 01/14/20 Mv-Mn/Iron/Folic Acid/Herb 190 [Vitamin D3 Complete Caplet] 1 tab PO BID Omeprazole [Prilosec] 1 tab PO DAILY 01/14/20 - Past Medical/Surgical History Diabetic: No -: HTN -: Lupus -: Arthritis -: IBS -: Diverticulitis -: Hyperlipidemia -: Hysterectomy -: breast tissue removal -: left hand sx -: bone spur sx of right foot - Family History Mother Medical History: Diabetes Father Medical History: Cancer - Social History Alcohol use: No Caffeine use: Yes Place of Residence: Home Review of Systems 10-point ROS is otherwise unremarkable General: Weakness Respiratory: Cough, Shortness of Breath Musculoskeletal: Other (Multiple joint pains) Physical Examination Temp Pulse Resp BP Pulse Ox 98.1 F 105 H 16 125/58 L 97 01/14/20 13:03 01/14/20 12:00 01/14/20 12:00 01/14/20 12:00 01/14/20 12:00 General: Alert, Oriented x3 HEENT: Atraumatic Neck: Supple Respiratory: Diminished, Crackles/rales (Crackles at the base) Cardiovascular: No edema, Regular rate/rhythm, Normal S1 S2 Laboratory Data (last 24 hrs) 01/14/20 02:00: PT 12.1, INR 1.03 01/14/20 02:00: WBC 4.8 D, Hgb 10.4 L, Hct 30.8 L, Plt Count 388 D 01/14/20 02:00: Sodium 136, Potassium 3.7, BUN 16, Creatinine 0.77, Glucose 92, Magnesium 1.3 L*, Total Bilirubin 0.5, AST 137 H, ALT 66, Alkaline Phosphatase 113 - Problems (1) Pulmonary fibrosis Current Visit: Yes Status: Acute Plan: Patient is 74 years of age admitted with back pain radiating to the anterior chest most likely musculoskeletal plane there is no evidence of compression fracture she does have an order fracture on the left posterior rib probably has underlying significant osteoporosis (2) Shortness of breath Current Visit: Yes Status: Acute Plan: Patient has chronic dyspnea on exertion patient had a recent cardiac catheterization no evidence of significant cardiac problems CT scan shows mild basilar interstitial lung disease patient does have some borderline temperature no evidence of sepsis normal white count patient is ESR is elevated is probably from the lupus she could have a pneumonia vital infection that some doxycycline p.o. cefuroxime continue to observe possible discharge tomorrow blood cultures
[2020-01-14] MEDS: CEFUROXIME 250 MG TAB PO SCH ×3 (14:32→21:00)
--- NOTE | 2020-01-14 15:12 | P.PN ---
Subjective Date of Service: 01/14/20 Primary Care Provider: Under a Chief Complaint: Back pain chronic shortness of breath Subjective: Improving Physical Examination - Vital Signs Temperature: 98.1 F Blood Pressure: 125/58 Pulse: 105 Respirations: 16 Pulse Ox (%): 97 - Physical Exam General: Alert, Cooperative HEENT: Atraumatic Neck: Supple Respiratory: Crackles/rales (Crackles to the bases), Expiratory wheezes Cardiovascular: Normal pulses, Regular rate/rhythm Gastrointestinal: Normal bowel sounds, Soft and benign, Non-distended, No masses , No rebound, No guarding Musculoskeletal: Other (Pain to the left ribcage region) Neurological: Normal speech, Normal strength at 5/5 x4 extr, Normal tone, Normal affect - Studies Laboratory Data (last 24 hrs) 01/14/20 02:00: PT 12.1, INR 1.03 01/14/20 02:00: WBC 4.8 D, Hgb 10.4 L, Hct 30.8 L, Plt Count 388 D 01/14/20 02:00: Sodium 136, Potassium 3.7, BUN 16, Creatinine 0.77, Glucose 92, Magnesium 1.3 L*, Total Bilirubin 0.5, AST 137 H, ALT 66, Alkaline Phosphatase 113 Medications List Reviewed: Yes Assessment & Plan Discharge Plan: Home Plan to discharge in: 24 Hours Physician Review Additional Text: Impression: Shortness of breath suspect pulmonary fibrosis likely related to lupus with possible underlying COPD Fever likely from atelectasis versus lupus verses viral infection Lupus on chronic steroids Back pain likely osteoarthritis Prior 4th left ribcage fracture Hypertension GERD Plan: Shortness of breath suspect pulmonary fibrosis likely related to lupus with possible underlying COPD: CT scan revealed no pulmonary embolism. No evidence of infection identified. Some atelectasis noted on the left side. Case discussed at length with pulmonology. Patient had pulmonary fibrosis on CT scan likely from lupus. Possible underlying COPD as well. Patient be started on Dulera. Continue with albuterol. Will also continue with prednisone. Patient had fever. Urinalysis negative. Chest x-ray did not show pneumonia. Influenza test negative. Suspect viral infection. Blood cultures obtained. Antibiotics started by pulmonology. Will monitor for the next 24 hr. Anticipate discharge tomorrow. Fever likely from atelectasis versus lupus verses viral infection: Continue as above. Blood cultures obtained. Influenza test negative. No pneumonia noted. Likely atelectasis. Lupus on chronic steroids: Continue with steroids. Patient will need follow up with Rheumatology. Back pain likely osteoarthritis: Will provide medication for pain. Prior 4th left ribcage fracture: Will provide medication for pain. Hypertension: Restart medication. GERD: Restart medication Time Spent Managing Pts Care (In Minutes): 55
[2020-01-14 15:15] LABS: Urine Bacteria <20 /HPF (<20); Urine RBC <5 /HPF (NONE SEEN)
[2020-01-14] MEDS: ARFORMOTEROL TARTRATE 15 MCG/2 ML VIAL.NEB NEB SCH (20:05)
[2020-01-14] MEDS: IRON PO SCH (21:00)
[2020-01-14] MEDS: MV MN PO SCH (21:00)
[2020-01-14] MEDS: HERB PO SCH (21:00)
[2020-01-14] MEDS: FOLIC ACID PO SCH (21:00)
[2020-01-14 21:39] VITALS: O2SAT 99
[2020-01-14] MEDS: DOXYCYCLINE 100 MG CAP PO SCH (21:43)
[2020-01-15] MEDS: HEPARIN 5000 UNIT/ML 1 ML VIAL SQ SCH ×2 (01:43→08:54)
[2020-01-15 05:51] LABS: Absolute Lymphocytes (CBC) 0.4 K/uL (0.7-4.9); Basophils % 0.3 % (0-1.3); Hematocrit 25.6 % (36.0-45.0); Lymphocytes % 13.5 % (15.3-44.8); MPV 8.2 fL (7.6-11.3); RBC Red Blood Cell Count 2.83 M/uL (3.86-4.86)
[2020-01-15 06:00] LABS: ALT/SGPT 55 U/L (12-78); AST/SGOT 112 U/L (15-37); Albumin 2.3 g/dL (3.4-5.0); Alkaline Phosphatase 87 U/L (45-117); BUN Blood Urea Nitrogen 12 mg/dL (7-18); Bicarbonate 28 mmol/L (21-32); Bilirubin Total 0.5 mg/dL (0.2-1.0); Glucose Level 123 mg/dL (74-106); HDL Cholesterol 38 mg/dL (40-60); LDL Cholesterol, Calculated 76 (<130); Magnesium 1.9 mg/dL (1.8-2.4); Potassium 3.9 mmol/L (3.5-5.1); Protein, Total 6.8 g/dL (6.4-8.2); Sodium Level 137 mmol/L (136-145)
[2020-01-15] MEDS ORDERED: Magnesium Sulfate 2gm IVPB 2 G/50 ML BAG IV ONE (06:45)
[2020-01-15] MEDS ORDERED: PANTOPRAZOLE 40MG TABLET PO SCH (07:30)
[2020-01-15] MEDS: ARFORMOTEROL TARTRATE 15 MCG/2 ML VIAL.NEB NEB SCH (08:00)
[2020-01-15] MEDS: CEFUROXIME 250 MG TAB PO SCH (08:48)
[2020-01-15] MEDS: DOXYCYCLINE 100 MG CAP PO SCH (08:50)
[2020-01-15] MEDS: FAMOTIDINE 20 MG TAB PO SCH (08:52)
[2020-01-15] MEDS: predniSONE 20 MG TAB PO SCH (08:53)
[2020-01-15] MEDS: LIDOCAINE 5% OINT 30 GM TUBE TOP SCH (08:57)
[2020-01-15] MEDS: FOLIC ACID PO SCH (08:57)
[2020-01-15] MEDS: MV MN PO SCH (08:57)
[2020-01-15] MEDS: IRON PO SCH (08:57)
[2020-01-15] MEDS: HERB PO SCH (08:57)
[2020-01-15] MEDS ORDERED: ASCORBIC ACID 500 MG TABLET PO SCH (09:00)
[2020-01-15] MEDS ORDERED: HOME MED 1 EA UNK (Cyanocobalamin (Vitamin B-12) [Vitamin B12] 1 TAB) PO SCH (09:00)
[2020-01-15] MEDS ORDERED: [UNRECOGNIZED DRUG - OTHER] PO SCH (09:00)
[2020-01-15] MEDS ORDERED: MULTIVIT W/ MINERAL TAB PO SCH (09:00)
[2020-01-15] MEDS ORDERED: HOME MED 1 EA UNK (Cyclosporine [Restasis] 1 DROP) EACH EAR SCH (09:00)
[2020-01-15] MEDS ORDERED: TESTOSTERONE PO SCH (09:00)
[2020-01-15] MEDS ORDERED: HOME MED 1 EA UNK (Omeprazole [Prilosec] 1 TAB) PO SCH (09:00)
[2020-01-15] MEDS ORDERED: ESTROGEN ESTER PO SCH (09:00)
[2020-01-15] MEDS ORDERED: ESCITALOPRAM 20 MG TAB PO SCH (09:00)
[2020-01-15] MEDS ORDERED: HOME MED 1 EA UNK (Losartan Potassium [Cozaar] 1 TAB) PO SCH (09:00)
[2020-01-15] MEDS ORDERED: CALCIUM CITRATE PO SCH (09:00)
[2020-01-15] MEDS ORDERED: LOSARTAN POTASSIUM 50 MG TABLET PO SCH (09:00)
[2020-01-15] MEDS ORDERED: HOME MED 1 EA UNK (Ascorbic Acid [Vitamin C] 1 TAB) PO SCH (09:00)
--- NOTE | 2020-01-15 09:11 | P.DS ---
Admission Date: 01/14/20 Discharge Date: 01/15/20 Primary Care Provider: Dr. Berrios; Rheumatology/Pulmonary Disposition: ROUTINE DISCHARGE Discharge Condition: GOOD Reason for Admission: Back pain chronic shortness of breath Consultations: Pulmonary-Dr. Galicia Procedures: CT Chest: COMPARISON: None FINDINGS: There is satisfactory visualization and contrast opacification of pulmonary arteries. No definite intra-arterial filling defects are identified to suggest acute or chronic pulmonary embolism. The thoracic aorta is normal in caliber and contour without evidence of aneurysm or dissection. There is a common origin of the left common carotid artery and right brachiocephalic artery. The lungs are well expanded and are clear. There is mild bilateral fibrosis and/ or atelectasis. There is no evidence of a pneumothorax. There are no pleural effusions. The heart is mildly enlarged. There is no pericardial effusion. There is no evidence of hilar, mediastinal or axillary lymphadenopathy. No acute osseous abnormality is identified. The visualized upper abdominal structures reveal numerous calcified splenic granulomas. There is a very small hiatal hernia. IMPRESSION: 1. No CT evidence to suggest acute or chronic pulmonary embolism, aortic aneurysm or aortic dissection. 2. Mild bilateral fibrosis and/or atelectasis. 3. Mild cardiomegaly. 4. Evidence of prior granulomatous disease. 5. Very small hiatal hernia. Rib xrays: FINDINGS: No displaced rib fracture is evident. No non-displaced rib fracture suspected. Old posterior left fourth rib fracture is present. No aggressive rib lesion. No underlying pneumothorax, effusion, infiltrate or pulmonary contusion. Numerous left upper quadrant calcifications are likely granulomas in the spleen. IMPRESSION: No rib fractures identified. Old posterior left fourth rib fracture present. T Spine: FINDINGS: AP & lateral views of the thoracic spine were obtained. Thoracic bodies are normal in height. Minimally accentuated kyphosis seen. Patient has a very minimal scoliotic curvature of the thoracic spine with no lateral subluxation abnormalities. Mild for age endplate spurs are seen throughout the thoracic spine. Several midthoracic disc levels show loss in disc height. No paraspinal masses are identified. No lytic, sclerotic or expansile bony destructive process. IMPRESSION: Thoracic spine degenerative changes are present relatively mild for age. No fracture or acute thoracic finding. Medical Problem List: Impression: Shortness of breath suspect pulmonary fibrosis versus atelectasis likely related to lupus with possible underlying COPD Fever likely from atelectasis versus lupus verses viral infection Lupus on chronic steroids Back pain likely osteoarthritis Prior 4th left ribcage fracture Hypertension GERD with hiatal hernia Depression Anemia of chronic disease Brief History of Present Illness: 74-year-old female with history of lupus on steroid medication. Patient had been recently evaluated by pulmonology. She was sent for a sleep study. While doing the sleep study she began to have some back pain with radiation of pain to ribcage region. Patient was sent to the ER for further evaluation. Patient had reported some cough, congestion. Patient recently placed on oxygen as an outpatient. Patient also sees Rheumatology. Patient admitted for observation to further address. Hospital Course: Patient presented with shortness of breath, back pain and chest pain. Patient was evaluated. Pulmonology was consulted. CT chest shows no pulmonary embolism. Bilateral fibrosis and/or atelectasis noted. Evidence of prior granulomatous disease. Very small hiatal hernia also identified. Patient did have a fever. Patient was ruled out for influenza. Patient was started on antibiotic therapy with improvement. Her steroid medication was increased during the course of her stay. Patient improved with her symptoms. Fever may been related to atelectasis versus upper respiratory infection. This may be related to her lupus is well. Patient afebrile at discharge. At discharge she will continue with Ceftin 500 mg twice daily and doxycycline 100 mg twice daily for 7 days. Patient will continue with prednisone 20 mg 1 pill twice daily for 5 days then 1 pill once daily for 5 days. After that patient will continue with her current maintenance dose of prednisone. Rheumatology plans to taper this off. Recommend follow up with Rheumatology to further address. Patient may have underlying fibrosis related to lupus or COPD with history of prior tobacco use. At discharge she will also continue with Dulera 2 puffs twice daily. She may continue with Pro air 2 puffs 3 times a day as needed for shortness of breath. She will also continue with home oxygen to maintain sats above 93%. Recommendation is for the patient to follow up with pulmonology to further address. Patient will likely require pulmonary function test to further evaluate. Patient did have sleep study prior to admission. Unsure whether this was fully completed. Pulmonology to further address. Recommend to recheck chest x-ray in 2-4 weeks monitor resolution. Patient with GERD and small hiatal hernia. At discharge she will continue with her medication Prilosec 40 mg daily. She is to follow up with GI to further address. Patient has appointment soon. As mentioned above patient with lupus. She is currently on chronic steroids. Patient previously on Plaquenil but this was discontinued due to side effects of her vision. Recommend follow up with Rheumatology within 1 week to further address. As noted above patient will continue with prednisone taper. Patient may continue with Tylenol as needed for pain. Patient with back pain likely related to osteoarthritis. Patient may take Tylenol as needed for pain. Recommend no further use of nonsteroidal anti- inflammatories as the patient will be on prednisone. Will recommend bone density in the future to evaluate for osteoporosis. This can be done with the help of her PCP. Patient will continue with her supplements including calcium supplementation. Patient with prior 4th left ribcage fracture. This has remained stable. Patient will continue with incentive spirometer. She will continue with above recommendations. Patient may take Tylenol as needed for pain. Patient with hypertension. At discharge she will continue with her medication losartan 25 mg daily. Recommend to maintain blood pressures less 150/80. Further adjustment can be done by her PCP. Patient with depression. At discharge she will continue with Lexapro 20 mg daily. Patient with anemia chronic disease. At discharge she will continue with multi vitamin supplementation and vitamin-B 12. Recommend to recheck lab-CBC in 2-4 weeks to monitor progress. Patient to follow up with GI soon to further evaluate. Vital Signs/Physical Exam: Temp Pulse Resp BP Pulse Ox 97.9 F 64 18 149/70 H 99 01/15/20 04:15 01/15/20 04:15 01/15/20 04:15 01/15/20 04:15 01/15/20 04:15 General: Alert, In no apparent distress, Oriented x3, Cooperative HEENT: Atraumatic Neck: Supple Respiratory: Expiratory wheezes (Mild but good air movement bilateral) Cardiovascular: Normal pulses, Regular rate/rhythm Gastrointestinal: Normal bowel sounds, Soft and benign, Non-distended, No tenderness, No masses, No rebound, No guarding Musculoskeletal: No erythema, No tenderness, No warmth Integumentary: No tenderness/swelling, No erythema, No warmth, No cyanosis Neurological: Normal speech, Normal strength at 5/5 x4 extr, Normal tone, Normal affect Laboratory Data at Discharge: WBC 2.7 K/uL (4.3-10.9) L D 01/15/20 05:15 Hgb 8.6 g/dL (12.0-15.0) L 01/15/20 05:15 Hct 25.6 % (36.0-45.0) L D 01/15/20 05:15 Plt Count 265 K/uL (152-406) D 01/15/20 05:15 PT 12.1 SECONDS (9.5-12.5) 01/14/20 02:00 INR 1.03 01/14/20 02:00 Sodium 137 mmol/L (136-145) 01/15/20 05:15 Potassium 3.9 mmol/L (3.5-5.1) 01/15/20 05:15 BUN 12 mg/dL (7-18) 01/15/20 05:15 Creatinine 0.52 mg/dL (0.55-1.3) L 01/15/20 05:15 Glucose 123 mg/dL (74-106) H 01/15/20 05:15 Magnesium 1.9 mg/dL (1.8-2.4) D 01/15/20 05:15 Total Bilirubin 0.5 mg/dL (0.2-1.0) 01/15/20 05:15 AST 112 U/L (15-37) H 01/15/20 05:15 ALT 55 U/L (12-78) 01/15/20 05:15 Alkaline Phosphatase 87 U/L (45-117) 01/15/20 05:15 Troponin I 0.03 ng/mL (0.0-0.045) 01/14/20 08:07 Triglycerides 73 mg/dL (<150) 01/15/20 05:15 Cholesterol 129 mg/dL (<200) 01/15/20 05:15 HDL Cholesterol 38 mg/dL (40-60) L 01/15/20 05:15 Cholesterol/HDL Ratio 3.39 01/15/20 05:15 Home Medications: Ascorbic Acid [Vitamin C] 1 tab PO DAILY 01/14/20 Calcium Citrate 1 tab PO DAILY 01/14/20 Cyanocobalamin (Vitamin B-12) [Vitamin B12] 1 tab PO DAILY 01/14/20 Cyclosporine [Restasis] 1 drop EACH EAR DAILY 01/14/20 Escitalopram [Lexapro*] 1 tab PO DAILY 01/14/20 Estrogen,Inga/Me-Testosterone [Estrogen-Methyltestos F.s. Tab] 0.5 mg PO DAILY 01/14/20 Losartan Potassium [Cozaar] 1 tab PO DAILY 01/14/20 Multivit-Min/FA/Lycopen/Lutein [Centrum Silver Tablet] 1 tab PO DAILY 01/14/20 Mv-Mn/Iron/Folic Acid/Herb 190 [Vitamin D3 Complete Caplet] 1 tab PO BID Omeprazole [Prilosec] 1 tab PO DAILY 01/14/20 Albuterol Sulfate [Proair Hfa] 2 puff IH TID PRN #1 hfa.aer.ad 01/15/20 Cefuroxime [Ceftin*] 500 mg PO BID #28 tab 01/15/20 Doxycycline Hyclate 100 mg PO BID #14 tablet 01/15/20 Mometasone/Formoterol [Dulera 100 Mcg-5 Mcg Inhaler] 2 puff IH BID #1 hfa.aer.ad 01/15/20 predniSONE [Prednisone*] 20 mg PO SEECOM #15 tab 01/15/20 New Medications: Albuterol Sulfate [Proair Hfa] 2 puff IH TID PRN #1 hfa.aer.ad PRN Reason: Shortness Of Breath Cefuroxime [Ceftin*] 500 mg PO BID #28 tab Doxycycline Hyclate 100 mg PO BID #14 tablet Mometasone/Formoterol [Dulera 100 Mcg-5 Mcg Inhaler] 2 puff IH BID #1 hfa.aer.ad predniSONE [Prednisone*] 20 mg PO SEECOM #15 tab Patient Discharge Instructions: 1. Recommend follow up with PCP to further address and follow up this hospitalization. 2. Patient presented with shortness of breath, back pain and chest pain. Patient was evaluated. Pulmonology was consulted. CT chest shows no pulmonary embolism. Bilateral fibrosis and/or atelectasis noted. Evidence of prior granulomatous disease. Very small hiatal hernia also identified. Patient did have a fever. Patient was ruled out for influenza. Patient was started on antibiotic therapy with improvement. Her steroid medication was increased during the course of her stay. Patient improved with her symptoms. Fever may been related to atelectasis versus upper respiratory infection. This may be related to her lupus is well. Patient afebrile at discharge. At discharge she will continue with Ceftin 500 mg twice daily and doxycycline 100 mg twice daily for 7 days. Patient will continue with prednisone 20 mg 1 pill twice daily for 5 days then 1 pill once daily for 5 days. After that patient will continue with her current maintenance dose of prednisone. Rheumatology plans to taper this off. Recommend follow up with Rheumatology to further address. Patient may have underlying fibrosis related to lupus or COPD with history of prior tobacco use. At discharge she will also continue with Dulera 2 puffs twice daily. She may continue with Pro air 2 puffs 3 times a day as needed for shortness of breath. She will also continue with home oxygen to maintain sats above 93%. Recommendation is for the patient to follow up with pulmonology to further address. Patient will likely require pulmonary function test to further evaluate. Patient did have sleep study prior to admission. Unsure whether this was fully completed. Pulmonology to further address. Recommend to recheck chest x-ray in 2-4 weeks monitor resolution. Patient with GERD and small hiatal hernia. At discharge she will continue with her medication Prilosec 40 mg daily. She is to follow up with GI to further address. Patient has appointment soon. 3. As mentioned above patient with lupus. She is currently on chronic steroids. Patient previously on Plaquenil but this was discontinued due to side effects of her vision. Recommend follow up with Rheumatology within 1 week to further address. As noted above patient will continue with prednisone taper. Patient may continue with Tylenol as needed for pain. 4. Patient with back pain likely related to osteoarthritis. Patient may take Tylenol as needed for pain. Recommend no further use of nonsteroidal anti- inflammatories as the patient will be on prednisone. Will recommend bone density in the future to evaluate for osteoporosis. This can be done with the help of her PCP. Patient will continue with her supplements including calcium supplementation. 5. Patient with prior 4th left ribcage fracture. This has remained stable. Patient will continue with incentive spirometer. She will continue with above recommendations. Patient may take Tylenol as needed for pain. 6. Patient with hypertension. At discharge she will continue with her medication losartan 25 mg daily. Recommend to maintain blood pressures less 150 /80. Further adjustment can be done by her PCP. 7. Patient with depression. At discharge she will continue with Lexapro 20 mg daily. 8. Patient with anemia chronic disease. At discharge she will continue with multi vitamin supplementation and vitamin-B 12. Recommend to recheck lab-CBC in 2-4 weeks to monitor progress. Patient to follow up with GI soon to further evaluate. Diet: AHA Activity: Fall precautions Time spent managing pt's care (in minutes): 55
[2020-01-15 11:17] VITALS: BP 137/64; TEMP 97
== END 2020-01-15 11:07 | disposition home or self-care (01) ==
LOC: ER 01:44 → ERHOLD 06:51 → 2ND 07:42
PROVIDERS: ADMIT Internal Medicine; ATTEND Family Medicine
DX: J84.10 Pulmonary fibrosis, unspecified (principal); R50.9 Fever, unspecified; M54.9 Dorsalgia, unspecified; I11.9 Hypertensive heart disease without heart failure; K21.9 Gastro-esophageal reflux disease without esophagitis; K44.9 Diaphragmatic hernia without obstruction or gangrene; E78.5 Hyperlipidemia, unspecified; M19.90 Unspecified osteoarthritis, unspecified site; Z79.52 Long term (current) use of systemic steroids; Z79.890 Hormone replacement therapy; Z79.899 Other long term (current) drug therapy; Z99.81 Dependence on supplemental oxygen
CPT/HCPCS: 93005; 87040; 85025 ×2; 81001; 80048; 36415 ×2; 83735 ×2; 85610; 80061; 80076; 85652; 84484 ×3; 82728; 82607; 83540; 80053; 84145; 83880; 84466; 86140; 87804 ×2; 71275; 71045; 71110; 72074; 97161; 94640; 82805; 96375; 96374; 99285; Q9967; J1644 ×4; J3475; J7605; J7030; G0378 ×3; J7512